=== PATIENT | female | born 1935 | race Caucasian/White ===

== ENCOUNTER → 2016-10-07 | Outpatient (CLI) | payer MEDICARE ==
[2016-10-07 16:51] LABS: ALANINE AMINOTRANSFERASE 35 U/L (9-52); ALBUMIN 4.4 g/dL (3.5-5.0); ALKALINE PHOSPHATASE 41 U/L (38-126); ANION GAP 10 (5-19); ASPARTATE AMINO TRANSFERASE 37 U/L (14-36); BILIRUBIN,TOTAL 0.7 mg/dL (0.2-1.3); BLOOD UREA NITROGEN 52 mg/dL (7-20); CALCIUM 9.7 mg/dL (8.4-10.2); CARBON DIOXIDE 33 mmol/L (22-30); CHLORIDE 96 mmol/L (98-107); CREATININE RESULT 1.37 mg/dL (0.52-1.25); GLUCOSE 105 mg/dL (75-110); PHOSPHORUS 4.6 mg/dL (2.5-4.5); SODIUM 139.2 mmol/L (137-145); TOTAL PROTEIN 6.9 g/dL (6.3-8.2)
[2016-10-07 16:53] LABS: URINE BARBITURATES SCREEN NEGATIVE; URINE METHADONE SCREEN NEGATIVE; URINE PHENCYCLIDINE SCREEN NEGATIVE
[2016-10-07 17:04] LABS: URINE OPIATES LOW UNCONFIRMED POSITIVE
== END ==
LOC: OD 15:25
PROVIDERS: ATTEND Physician Assistant
DX: G89.4 Chronic pain syndrome (principal)
CPT/HCPCS: 36415; 80069; 80076; 80307

== ENCOUNTER 2016-10-17 12:55 | Emergency (ER) | payer MEDICARE ==
--- NOTE | 2016-10-17 13:13 | ER Document Report ---
ED Medical Screen (RME) - General Stated Complaint: SHAKING,CONFUSED Mode of Arrival: Wheelchair Information source: Patient, Parent Notes: Pt presents to the ED for c/o shaking, feeling bad, weak, possible due to hype potassium since yesterday.. Reports history of hypercalcemia. Patient does take diuretic. Reports vomiting yesterday, wretching last night. Decreased appetite. Denies cp. Denies diarrhea fever, reports has felt clammy. I have greeted and performed a rapid initial assessment of this patient. A comprehensive ED assessment and evaluation of the patient, analysis of test results and completion of the medical decision making process will be conducted by additional ED providers. TRAVEL OUTSIDE OF THE [place] IN LAST 30 DAYS: No - Related Data Allergies/Adverse Reactions: codeine [Codeine] Allergy (Severe, Verified 05/03/16 04:04) Depression Past Medical History - Past Medical History Cardiac Medical History: Reports: Hx Hypercholesterolemia, Hx Hypertension Denies: Hx Congestive Heart Failure, Hx Coronary Artery Disease, Hx DVT, Hx Heart Attack, Hx Pulmonary Embolism Pulmonary Medical History: Denies: Hx Asthma, Hx Bronchitis - X 1 , Hx COPD, Hx Pneumonia Neurological Medical History: Denies: Hx Cerebrovascular Accident, Hx Seizures Endocrine Medical History: Reports: Hx Hypothyroidism. Denies: Hx Diabetes Mellitus Type 1, Hx Diabetes Mellitus Type 2 Musculoskeltal Medical History: Reports Hx Arthritis - GENERALIZED Psychiatric Medical History: Denies: Hx Depression Past Surgical History: Reports: Hx Hysterectomy - Immunizations Hx Diphtheria, Pertussis, Tetanus Vaccination: No - UNSURE Physical Exam - Vital signs Vitals: Temp Pulse Resp BP Pulse Ox 97.8 F 74 14 150/49 H 98 10/17/16 13:06 10/17/16 13:06 10/17/16 13:06 10/17/16 13:06 10/17/16 13:06 Course - Vital Signs Vital signs: Temp Pulse Resp BP Pulse Ox 97.8 F 74 14 150/49 H 98 10/17/16 13:06 10/17/16 13:06 10/17/16 13:06 10/17/16 13:06 10/17/16 13:06
[2016-10-17 13:42] LABS: ABSOLUTE LYMPHOCYTES (AUTO) 0.8 10^3/uL (0.5-4.7); ABSOLUTE MONOCYTES (AUTO) 0.5 10^3/uL (0.1-1.4); ABSOLUTE NEUT (AUTO) 3.5 10^3/uL (1.7-8.2); BASOPHILS % (AUTO) 0.4 % (0-2); EOSINOPHILS % (AUTO) 0.6 % (0-6); HEMATOCRIT 31.5 % (36.0-47.0); HEMOGLOBIN 10.7 g/dL (12.0-15.5); HGB HCT DIFFERENCE 0.6; MEAN CORPUSCULAR HEMOGLOBIN 30.6 pg (27.0-33.4); MEAN CORPUSCULAR HGB CONC 33.9 g/dL (32.0-36.0); MEAN CORPUSCULAR VOLUME 90 fl (80-97); MONOCYTES % (AUTO) 10.4 % (3-13); RED CELL DISTRIBUTION WIDTH 13.8 % (11.5-14.0); SEGMENTED NEUTROPHILS % (AUTO) 71.6 % (42-78); WHITE BLOOD COUNT 4.9 10^3/uL (4.0-10.5)
[2016-10-17 13:55] LABS: ALANINE AMINOTRANSFERASE 51 U/L (9-52); ALBUMIN 4.8 g/dL (3.5-5.0); ALKALINE PHOSPHATASE 43 U/L (38-126); ANION GAP 12 (5-19); ASPARTATE AMINO TRANSFERASE 62 U/L (14-36); BILIRUBIN,TOTAL 0.7 mg/dL (0.2-1.3); BLOOD UREA NITROGEN 62 mg/dL (7-20); CALCIUM 10.1 mg/dL (8.4-10.2); CARBON DIOXIDE 31 mmol/L (22-30); CHLORIDE 91 mmol/L (98-107); CREATINE KINASE 577 U/L (30-135); GLUCOSE 136 mg/dL (75-110); SODIUM 133.8 mmol/L (137-145); TOTAL PROTEIN 7.3 g/dL (6.3-8.2)
[2016-10-17 14:07] LABS: CREATINE KINASE MB 9.02 ng/mL (<4.55); TROPONIN I 0.017 ng/mL
[2016-10-17] MEDS ORDERED: NORMAL SALINE 1000 ML 1,000 ML IV ONE (14:10)
--- NOTE | 2016-10-17 14:25 | ER Document Report ---
ED General - General Chief Complaint: General Weakness Stated Complaint: SHAKING,CONFUSED Mode of Arrival: Wheelchair Information source: Patient Notes: 81-year-old female presents with complaints of generalized shakiness not feeling well. Patient denies any fevers or chills nausea vomiting or diarrhea except for one episode yesterday Patient recently had lab work last week for pain management TRAVEL OUTSIDE OF THE [place] IN LAST 30 DAYS: No - HPI Onset: Yesterday Onset/Duration: Persistent Quality of pain: No pain Severity: Mild Pain Level: Denies Associated symptoms: Other - Shakiness Exacerbated by: Denies Relieved by: Denies Similar symptoms previously: Yes Recently seen / treated by doctor: Yes - Related Data Allergies/Adverse Reactions: codeine [Codeine] Allergy (Severe, Verified 05/03/16 04:04) Depression Past Medical History - General Information source: Patient, Parent - Social History Smoking Status: Never Smoker Cigarette use (# per day): No Chew tobacco use (# tins/day): No Smoking Education Provided: No Frequency of alcohol use: None Drug Abuse: None Family History: Reviewed & Not Pertinent Patient has suicidal ideation: No Patient has homicidal ideation: No - Past Medical History Cardiac Medical History: Reports: Hx Hypercholesterolemia, Hx Hypertension Denies: Hx Congestive Heart Failure, Hx Coronary Artery Disease, Hx DVT, Hx Heart Attack, Hx Pulmonary Embolism Pulmonary Medical History: Denies: Hx Asthma, Hx Bronchitis - X 1 , Hx COPD, Hx Pneumonia Neurological Medical History: Denies: Hx Cerebrovascular Accident, Hx Seizures Endocrine Medical History: Reports: Hx Hypothyroidism. Denies: Hx Diabetes Mellitus Type 1, Hx Diabetes Mellitus Type 2 Renal/ Medical History: Denies: Hx Peritoneal Dialysis Musculoskeltal Medical History: Reports Hx Arthritis - GENERALIZED Psychiatric Medical History: Denies: Hx Depression Past Surgical History: Reports: Hx Cholecystectomy, Hx Hysterectomy, Hx Tonsillectomy - Immunizations Hx Diphtheria, Pertussis, Tetanus Vaccination: No - UNSURE Hx Pneumococcal Vaccination: 08/23/11 Review of Systems - Review of Systems Notes: REVIEW OF SYSTEMS: CONSTITUTIONAL : Denies fever, chills, or sweats. Denies recent illness. EENT: Denies eye, ear, throat, or mouth pain or symptoms. Denies nasal or sinus congestion or discharge. Denies throat, tongue, or mouth swelling or difficulty swallowing. CARDIOVASCULAR: Denies chest pain. Denies palpitations or racing or irregular heart beat. Denies ankle edema. RESPIRATORY: Denies cough, cold, or chest congestion. Denies shortness of breath, difficulty breathing, or wheezing. GASTROINTESTINAL: Denies abdominal pain or distention. Denies nausea, vomiting , or diarrhea. Denies blood in vomitus, stools, or per rectum. Denies black, tarry stools. Denies constipation. GENITOURINARY: Denies difficulty urinating, painful urination, burning, frequency, blood in urine, or discharge. FEMALE GENITOURINARY: Denies vaginal bleeding, heavy or abnormal periods, irregular periods. Denies vaginal discharge or odor. MUSCULOSKELETAL: Denies back or neck pain or stiffness. Denies joint pain or swelling. SKIN: Denies rash, lesions or sores. HEMATOLOGIC : Denies easy bruising or bleeding. LYMPHATIC: Denies swollen, enlarged glands. NEUROLOGICAL: Admits to shakiness PSYCHIATRIC: Denies anxiety or stress. Denies depression, suicidal ideation, or homicidal ideation. ALL OTHER SYSTEMS REVIEWED AND NEGATIVE. Dictation was performed using [employer] voice recognition software PHYSICAL EXAMINATION: GENERAL: Well-appearing, well-nourished and in no acute distress. HEAD: Atraumatic, normocephalic. EYES: Pupils equal round and reactive to light, extraocular movements intact, conjunctiva are normal. ENT: Nares patent, oropharynx clear without exudates. Moist mucous membranes. NECK: Normal range of motion, supple without lymphadenopathy LUNGS: Breath sounds clear to auscultation bilaterally and equal. No wheezes rales or rhonchi. HEART: Regular rate and rhythm without murmurs ABDOMEN: Soft abdomen with large ventral hernia non-tender Female : deferred Musculoskeletal: Normal range of motion, no pitting or edema. No cyanosis. NEUROLOGICAL: Cranial nerves grossly intact. Normal speech, normal gait. Normal sensory, motor exams PSYCH: Normal mood, normal affect. SKIN: Warm, Dry, normal turgor, no rashes or lesions noted. Physical Exam - Vital signs Vitals: Temp Pulse Resp BP Pulse Ox 97.8 F 74 14 150/49 H 98 10/17/16 13:06 10/17/16 13:06 10/17/16 13:06 10/17/16 13:06 10/17/16 13:06 Course - Re-evaluation Re-evalutation: 10/17/16 14:24 Patient is noted to have acute renal insufficiency, urinalysis is pending fluids will be given to the patient and I have offered her admission at this time 10/17/16 18:28 Patient is quite insistent on being discharged, given that we check a CMP does note improvement of the creatinine, I will continue hydration and discharge the patient home to follow-up with primary care physician both she and daughter are in agreement with this plan After performing a Medical Screening Examination, I estimate there is LOW risk for ACUTE CORONARY SYNDROME, RESPIRATORY FAILURE, SEPSIS OR MENINGITIS, thus I consider the discharge disposition reasonable. The patient and I have discussed the diagnosis and risks, and we agree with discharging home with close follow- up. We also discussed returning to the Emergency Department immediately if new or worsening symptoms occur. We have discussed the symptoms which are most concerning (e.g., changing or worsening pain, trouble swallowing or breathing, neck stiffness, fever) that necessitate immediate return. - Vital Signs Vital signs: Temp Pulse Resp BP Pulse Ox 97.8 F 74 14 150/49 H 98 10/17/16 13:06 10/17/16 13:06 10/17/16 13:06 10/17/16 13:06 10/17/16 13:06 - Laboratory Result Diagrams: 10/17/16 13:25 10/17/16 17:25 Laboratory results interpreted by me: 10/17/16 10/17/16 10/17/16 13:25 13:25 13:25 RBC 3.50 L Hgb 10.7 L Hct 31.5 L Sodium 133.8 L Chloride 91 L Carbon Dioxide 31 H BUN 62 H Creatinine 2.30 H Est GFR ( Amer) 25 L Est GFR (Non-Af Amer) 20 L Glucose 136 H AST 62 H Alkaline Phosphatase Creatine Kinase 577 H CK-MB (CK-2) 9.02 H 10/17/16 17:25 RBC Hgb Hct Sodium 134.5 L Chloride 96 L Carbon Dioxide BUN 55 H Creatinine 1.87 H Est GFR ( Amer) 31 L Est GFR (Non-Af Amer) 26 L Glucose AST 64 H Alkaline Phosphatase 36 L Creatine Kinase CK-MB (CK-2) - Diagnostic Test Radiology reviewed: Image reviewed, Reports reviewed - Patient has no abdominal pain, there is no signs of inflammation on examination Discharge - Discharge Clinical Impression: Dehydration Acute renal failure Qualifiers: Acute renal failure type: unspecified Qualified Code(s): N17.9 - Acute kidney failure, unspecified Hypertension Qualifiers: Hypertension type: essential hypertension Qualified Code(s): I10 - Essential ( primary) hypertension Condition: Stable Disposition: HOME, SELF-CARE Additional Instructions: Return immediately if there is any other concerns You must be seen by her primary care physician tomorrow for reevaluation of your creatinine function Referrals: JAG SOTO MD [Primary Care Provider] - Follow up tomorrow
[2016-10-17 14:38] LABS: APPEARANCE,URINE CLEAR; BILIRUBIN,URINE NEGATIVE (NEGATIVE); GLUCOSE, URINE NEGATIVE (NEGATIVE); KETONES,URINE NEGATIVE (NEGATIVE); LEUKOCYTE ESTERASE,URINE NEGATIVE (NEGATIVE); NITRITE,URINE NEGATIVE (NEGATIVE); PROTEIN,URINE NEGATIVE (NEGATIVE); URINE SPECIFIC GRAVITY 1.006; UROBILINOGEN,URINE NEGATIVE mg/dL (<2.0)
[2016-10-17 18:03] LABS: ALANINE AMINOTRANSFERASE 49 U/L (9-52); ALBUMIN 4.1 g/dL (3.5-5.0); ALKALINE PHOSPHATASE 36 U/L (38-126); ANION GAP 14 (5-19); ASPARTATE AMINO TRANSFERASE 64 U/L (14-36); BILIRUBIN,TOTAL 0.6 mg/dL (0.2-1.3); BLOOD UREA NITROGEN 55 mg/dL (7-20); CALCIUM 9.2 mg/dL (8.4-10.2); CARBON DIOXIDE 25 mmol/L (22-30); CHLORIDE 96 mmol/L (98-107); CREATININE RESULT 1.87 mg/dL (0.52-1.25); GLUCOSE 107 mg/dL (75-110); POTASSIUM 4.6 mmol/L (3.6-5.0); SODIUM 134.5 mmol/L (137-145); TOTAL PROTEIN 6.6 g/dL (6.3-8.2)
[2016-10-17] MEDS: NORMAL SALINE 1000 ML 1,000 ML IV PRN ×2 (18:21→19:40)
--- NOTE | 2016-10-17 19:29 | EKG REPORT ---
SEVERITY:- BORDERLINE ECG - SINUS RHYTHM PROBABLE LEFT ATRIAL ABNORMALITY BORDERLINE T ABNORMALITIES, ANT-LAT LEADS : Confirmed by: Yamilet Napier MD 17-Oct-2016 19:28:19
[2016-10-17 20:45] VITALS: BP 164/58
== END 2016-10-17 20:44 | disposition home or self-care (01) ==
LOC: ER 12:55
DX: N17.9 Acute kidney failure, unspecified (principal); E86.0 Dehydration; I10 Essential (primary) hypertension; R53.1 Weakness; R25.1 Tremor, unspecified; R41.0 Disorientation, unspecified
CPT/HCPCS: 93005; 99285; 96360; 96361; 36415; 82553; 82550; 85025; 80053; 81001; 84484; 74176; 93010; J7030

== ENCOUNTER → 2016-10-23 | Outpatient (CLI) | payer MEDICARE ==
[2016-10-23 14:17] LABS: BLOOD UREA NITROGEN 33 mg/dL (7-20); CREATININE RESULT 1.25 mg/dL (0.52-1.25)
== END ==
LOC: OD 13:00
PROVIDERS: ATTEND Internal Medicine
DX: N18.3 Chronic kidney disease, stage 3 (moderate) (principal)
CPT/HCPCS: 36415; 82565; 84520

== ENCOUNTER → 2016-11-25 | Outpatient (CLI) | payer MEDICARE ==
[2016-11-25 08:41] LABS: ABSOLUTE LYMPHOCYTES (AUTO) 1.2 10^3/uL (0.5-4.7); ABSOLUTE MONOCYTES (AUTO) 0.7 10^3/uL (0.1-1.4); ABSOLUTE NEUT (AUTO) 2.5 10^3/uL (1.7-8.2); BASOPHILS % (AUTO) 0.8 % (0-2); EOSINOPHILS % (AUTO) 1.1 % (0-6); HEMATOCRIT 29.9 % (36.0-47.0); HEMOGLOBIN 10.1 g/dL (12.0-15.5); HGB HCT DIFFERENCE 0.4; LYMPHOCYTES % (AUTO) 27.2 % (13-45); MEAN CORPUSCULAR HEMOGLOBIN 30.1 pg (27.0-33.4); MEAN CORPUSCULAR HGB CONC 33.7 g/dL (32.0-36.0); MEAN CORPUSCULAR VOLUME 89 fl (80-97); MONOCYTES % (AUTO) 15.1 % (3-13); RED BLOOD COUNT 3.36 10^6/uL (3.72-5.28); RED CELL DISTRIBUTION WIDTH 14.2 % (11.5-14.0); SEGMENTED NEUTROPHILS % (AUTO) 55.8 % (42-78); WHITE BLOOD COUNT 4.5 10^3/uL (4.0-10.5)
[2016-11-25 09:00] LABS: ALANINE AMINOTRANSFERASE 45 U/L (9-52); ALBUMIN 3.8 g/dL (3.5-5.0); ALKALINE PHOSPHATASE 36 U/L (38-126); ANION GAP 10 (5-19); ASPARTATE AMINO TRANSFERASE 47 U/L (14-36); BILIRUBIN,DIRECT 0.4 mg/dL (0.0-0.4); BILIRUBIN,TOTAL 0.7 mg/dL (0.2-1.3); BLOOD UREA NITROGEN 56 mg/dL (7-20); CALCIUM 9.5 mg/dL (8.4-10.2); CARBON DIOXIDE 31 mmol/L (22-30); CHLORIDE 92 mmol/L (98-107); CHOLESTEROL 104.88 mg/dL (0-200); CREATININE RESULT 1.71 mg/dL (0.52-1.25); Direct HDL 57 mg/dL (>40); GLUCOSE 97 mg/dL (75-110); MAGNESIUM 2.3 mg/dL (1.6-2.3); POTASSIUM 4.4 mmol/L (3.6-5.0); SODIUM 133.4 mmol/L (137-145); TOTAL PROTEIN 6.4 g/dL (6.3-8.2); TRIGLYCERIDES 58 mg/dL (<150)
[2016-11-25 09:12] LABS: DIRECT LDL 35 mg/dL (<100)
== END ==
LOC: LAB 08:23
PROVIDERS: ATTEND Family Medicine Geriatric Medicine
DX: I10 Essential (primary) hypertension (principal); E78.5 Hyperlipidemia, unspecified; E03.9 Hypothyroidism, unspecified; Z79.899 Other long term (current) drug therapy; E55.9 Vitamin D deficiency, unspecified
CPT/HCPCS: 36415; 80053; 80061; 82306; 83735; 84443; 85025

== ENCOUNTER → 2016-11-30 | Outpatient (CLI) | payer MEDICARE ==
[2016-11-30 16:04] LABS: ABSOLUTE EOSINOPHILS # (AUTO) 0.1 10^3/uL (0.0-0.6); ABSOLUTE MONOCYTES (AUTO) 0.4 10^3/uL (0.1-1.4); BASOPHILS % (AUTO) 0.6 % (0-2); EOSINOPHILS % (AUTO) 1.2 % (0-6); HEMATOCRIT 31.5 % (36.0-47.0); HGB HCT DIFFERENCE 1.5; LYMPHOCYTES % (AUTO) 22.5 % (13-45); MEAN CORPUSCULAR HEMOGLOBIN 31.1 pg (27.0-33.4); MEAN CORPUSCULAR HGB CONC 34.9 g/dL (32.0-36.0); MEAN CORPUSCULAR VOLUME 89 fl (80-97); MONOCYTES % (AUTO) 9.7 % (3-13); RED BLOOD COUNT 3.54 10^6/uL (3.72-5.28); RED CELL DISTRIBUTION WIDTH 13.8 % (11.5-14.0); WHITE BLOOD COUNT 4.5 10^3/uL (4.0-10.5)
[2016-11-30 16:42] LABS: ERYTHROCYTE SEDIMENTATION RATE 12 mm/hr (0-30)
[2016-12-03 07:34] LABS: DEAMIDATED GLIADIN IGA AB 1 units (0-19); DEAMIDATED GLIADIN IGG AB 2 units (0-19); IMMUNOGLOBULIN A 2 75 mg/dL (64-422); T-TRANSGLUTAMINASE (TTG) IGG <2 U/mL (0-5)
== END ==
LOC: OD 11:38
PROVIDERS: ATTEND Specialist
DX: Z79.899 Other long term (current) drug therapy (principal)
CPT/HCPCS: 36415; 83520; 83735; 85025; 85652; 86038; 86256

== ENCOUNTER → 2016-12-23 | Outpatient (CLI) | payer MEDICARE ==
[2016-12-23 12:59] LABS: ALANINE AMINOTRANSFERASE 63 U/L (9-52); ALBUMIN 3.9 g/dL (3.5-5.0); ALKALINE PHOSPHATASE 66 U/L (38-126); ANION GAP 12 (5-19); ASPARTATE AMINO TRANSFERASE 49 U/L (14-36); BILIRUBIN,DIRECT 0.2 mg/dL (0.0-0.4); BILIRUBIN,TOTAL 0.9 mg/dL (0.2-1.3); BLOOD UREA NITROGEN 18 mg/dL (7-20); CALCIUM 9.6 mg/dL (8.4-10.2); CARBON DIOXIDE 30 mmol/L (22-30); CHLORIDE 95 mmol/L (98-107); CREATININE RESULT 0.76 mg/dL (0.52-1.25); GLUCOSE 91 mg/dL (75-110); POTASSIUM 3.9 mmol/L (3.6-5.0); TOTAL PROTEIN 6.5 g/dL (6.3-8.2)
[2016-12-23 13:02] LABS: APPEARANCE,URINE SLIGHTLY-CLOUDY; BILIRUBIN,URINE NEGATIVE (NEGATIVE); GLUCOSE, URINE NEGATIVE (NEGATIVE); KETONES,URINE NEGATIVE (NEGATIVE); LEUKOCYTE ESTERASE,URINE MODERATE (NEGATIVE); NITRITE,URINE NEGATIVE (NEGATIVE); PROTEIN,URINE NEGATIVE (NEGATIVE); URINE SPECIFIC GRAVITY 1.009; UROBILINOGEN,URINE NEGATIVE mg/dL (<2.0)
[2016-12-24 10:41] LABS: APPEARANCE,URINE SLIGHTLY-CLOUDY; BILIRUBIN,URINE NEGATIVE (NEGATIVE); GLUCOSE, URINE NEGATIVE (NEGATIVE); KETONES,URINE NEGATIVE (NEGATIVE); LEUKOCYTE ESTERASE,URINE MODERATE (NEGATIVE); NITRITE,URINE NEGATIVE (NEGATIVE); PROTEIN,URINE NEGATIVE (NEGATIVE); URINE SPECIFIC GRAVITY 1.008; UROBILINOGEN,URINE NEGATIVE mg/dL (<2.0)
== END ==
LOC: OD 11:23
PROVIDERS: ATTEND Family Medicine Geriatric Medicine
DX: I10 Essential (primary) hypertension (principal); D64.9 Anemia, unspecified; R06.02 Shortness of breath; N39.0 Urinary tract infection, site not specified
CPT/HCPCS: 36415; 80053; 81001; 82728; 83540; 83550; 84466; 85045; 87086; 87088; 87186

== ENCOUNTER → 2017-01-06 | Outpatient (CLI) | payer MEDICARE ==
--- NOTE | 2017-01-08 17:28 | XCELERA REPORT ---
[address] [address] Transthoracic Echocardiogram Report Name: GUNNER PYLE Age: 81 yrs Gender: Female : 1935 Patient Status: Outpatient Patient Location: Study Date: 01/06/2017 11:12 AM Height: 55 in Weight: 135 lb BSA: 1.5 m2 Procedure: A complete two-dimensional transthoracic echocardiogram was performed (2D, M-mode, spectral and color flow Doppler). The study was technically difficult with many images being suboptimal in quality. Reason For Study: SOB, HTN Ordering Physician: RENZO TENA Performed By: Chan Shafer Interpretation Summary The left ventricular ejection fraction is normal. Doppler measurements suggest impaired left ventricular relaxation, which is associated with grade I/IV or mild diastolic dysfunction There is borderline concentric left ventricular hypertrophy. The left ventricle is grossly normal size. Wall motion cannot be accurately commented on, but no definite regional wall motion abnormalities noted. Borderline right ventricular enlargement. The right ventricular systolic function is normal. The right atrium is mildly dilated. The left atrium is moderately dilated. There is no mitral valve stenosis. There is a mild to moderate amount of mitral regurgitation There is a mild amount of aortic regurgitation There is no aortic valve stenosis There is a mild amount of tricuspid regurgitation There is mild to moderate pulmonary hypertension by echo Right ventricular systolic pressure is estimated to be elevated at 40- 50mmHg. The aortic root is not well visualized but is probably normal size. The inferior vena cava appeared normal and decreased < 50% with respiration (RAP 10-15 mmHg) There is no pericardial effusion. MMode/2D Measurements \T\ Calculations RVDd: 2.2 cm LVIDd: 5.4 cm FS: 36.6 % Ao root diam: 2.5 cm IVSd: 0.98 cm LVIDs: 3.4 cm EDV(Teich): 140.2 ml LVPWd: 0.95 cm ESV(Teich): 47.9 ml Ao root area: 4.9 cm2 EF(Teich): 65.9 % LA dimension: 4.6 cm Doppler Measurements \T\ Calculations MV E max ruddy: MV P1/2t max ruddy: Ao V2 max: AI max ruddy: 93.8 cm/sec 91.6 cm/sec 149.3 cm/sec 371.6 cm/sec MV A max ruddy: MV P1/2t: 56.0 msec Ao max PG: AI max P.4 cm/sec 8.9 mmHg 55.2 mmHg MV E/A: 0.79 MVA(P1/2t): 3.9 cm2 AI dec slope: MV dec slope: 478.8 cm/sec2 183.1 cm/sec2 AI P1/2t: 594.4 msec LV V1 max PG: PA V2 max: TR max ruddy: RAP systole: 3.9 mmHg 81.2 cm/sec 283.7 cm/sec 10.0 mmHg LV V1 max: PA max P.6 mmHg TR max P.2 cm/sec 32.5 mmHg RVSP(TR): 42.5 mmHg Left Ventricle The left ventricle is grossly normal size. There is borderline concentric left ventricular hypertrophy. The left ventricular ejection fraction is normal. Doppler measurements suggest impaired left ventricular relaxation, which is associated with grade I/IV or mild diastolic dysfunction. Wall motion cannot be accurately commented on, but no definite regional wall motion abnormalities noted. Right Ventricle Borderline right ventricular enlargement. There is normal right ventricular wall thickness. The right ventricular systolic function is normal. Atria The right atrium is mildly dilated. The left atrium is moderately dilated. There is no Doppler evidence for an interatrial shunt. Mitral Valve The mitral valve leaflets are sclerotic, but show no functional abnormalities. There is no mitral valve stenosis. There is a mild to moderate amount of mitral regurgitation. Aortic Valve The aortic valve is mildly calcified. There is no aortic valve stenosis. There is a mild amount of aortic regurgitation. Tricuspid Valve The tricuspid valve is not well visualized, but is grossly normal. There is no tricuspid stenosis. There is a mild amount of tricuspid regurgitation. There is mild to moderate pulmonary hypertension by echo. Right ventricular systolic pressure is estimated to be elevated at 40-50mmHg. Pulmonic Valve The pulmonic valve is not well visualized. Great Vessels The aortic root is not well visualized but is probably normal size. The inferior vena cava appeared normal and decreased < 50% with respiration (RAP 10-15 mmHg). Effusions There is no pericardial effusion. : RENZO TENA > Marcy White
== END ==
LOC: SP 10:46
PROVIDERS: ATTEND Family Medicine Geriatric Medicine
DX: R06.02 Shortness of breath (principal); I10 Essential (primary) hypertension; R60.0 Localized edema
CPT/HCPCS: 93306

== ENCOUNTER → 2017-02-19 | Outpatient (CLI) | payer MEDICARE ==
[2017-02-19 17:15] LABS: HEMATOCRIT 36.7 % (36.0-47.0); HEMOGLOBIN 11.8 g/dL (12.0-15.5); HGB HCT DIFFERENCE -1.3; MEAN CORPUSCULAR HEMOGLOBIN 29.9 pg (27.0-33.4); MEAN CORPUSCULAR HGB CONC 32.3 g/dL (32.0-36.0); MEAN CORPUSCULAR VOLUME 93 fl (80-97); RED BLOOD COUNT 3.96 10^6/uL (3.72-5.28); RED CELL DISTRIBUTION WIDTH 13.4 % (11.5-14.0); WHITE BLOOD COUNT 6.9 10^3/uL (4.0-10.5)
[2017-02-19 17:23] LABS: APPEARANCE,URINE SLIGHTLY-CLOUDY; BILIRUBIN,URINE NEGATIVE (NEGATIVE); GLUCOSE, URINE NEGATIVE (NEGATIVE); KETONES,URINE NEGATIVE (NEGATIVE); LEUKOCYTE ESTERASE,URINE MODERATE (NEGATIVE); NITRITE,URINE POSITIVE (NEGATIVE); PROTEIN,URINE NEGATIVE (NEGATIVE); URINE SPECIFIC GRAVITY 1.006; UROBILINOGEN,URINE NEGATIVE mg/dL (<2.0)
[2017-02-19 17:33] LABS: ALANINE AMINOTRANSFERASE 27 U/L (9-52); ASPARTATE AMINO TRANSFERASE 27 U/L (14-36)
[2017-02-19 17:34] LABS: ANION GAP 12 (5-19); BLOOD UREA NITROGEN 26 mg/dL (7-20); CALCIUM 9.5 mg/dL (8.4-10.2); CARBON DIOXIDE 32 mmol/L (22-30); CHLORIDE 96 mmol/L (98-107); GLUCOSE 126 mg/dL (75-110); MAGNESIUM 2.2 mg/dL (1.6-2.3); POTASSIUM 4.4 mmol/L (3.6-5.0); SODIUM 139.6 mmol/L (137-145)
== END ==
LOC: OD 15:42
PROVIDERS: ATTEND Internal Medicine Nephrology
DX: I12.9 Hypertensive chronic kidney disease with stage 1 through stage 4 chronic kidney disease, or unspecified chronic kidney disease (principal); N18.4 Chronic kidney disease, stage 4 (severe); I50.9 Heart failure, unspecified; R79.89 Other specified abnormal findings of blood chemistry; Z79.899 Other long term (current) drug therapy
CPT/HCPCS: 36415; 80048; 81001; 83735; 84450; 84460; 85027

== ENCOUNTER → 2017-02-26 | Outpatient (CLI) | payer MEDICARE ==
--- NOTE | 2017-02-28 17:08 | XCELERA REPORT ---
[address] [address] Lower Extremity Arterial Evaluation Name: GUNNER PYLE Age: 81 yrs Gender: Female : 1935 Patient Status: Outpatient Patient Location: Study Date: 02/26/2017 01:04 PM Procedure: A color flow and duplex scan of the lower extremity arteries was performed bilaterally with velocity and waveform anaylsis. Ankle brachial indicies performed. Reason For Study: PAD, ULCER Ordering Physician: NATALY PRAKASH Performed By: Val Hoffmann Measurements and Calculations Right Left JUNK REMOVAL SPECIALIST PSV 176.6 cm/sec Prox PFA PSV 104.8 154.3 cm/sec Prox SFA PSV 128.8 152.3 cm/sec Mid SFA PSV 144.3 119.8 cm/sec Dist SFA PSV 125.4 125.0 cm/sec Prox Pop A PSV 106.5 104.7 cm/sec Dist WILFREDO PSV 129.3 123.4 cm/sec Dist SAS STATISTICAL PROGRAMMER PSV 74.5 129.7 cm/sec Alfonso Pedis PSV 113.8 110.9 cm/sec Right Side Arterial Evaluation Normal velocity, spectral broadening and biphasic waveforms noted from the Common Femoral artery to the infrageniculate vessels. 0-19 % stenosis at the inflow vessels. Ankle Brachial index is 1.1. Left Side Arterial Evaluation Normal velocity, spectral broadening and biphasic waveforms noted from the Common Femoral artery to the infrageniculate vessels. 0-19 % stenosis at the inflow vessels. Ankle Brachial index is 1.1. Interpretation Summary Mild hemodynamically significant lesions in the bilateral lower extremities, on duplex imaging, at rest. : NATALY PRAKASH > James Hannah
== END ==
LOC: SP 12:59
PROVIDERS: ATTEND Podiatrist Foot Surgery
DX: I70.25 Atherosclerosis of native arteries of other extremities with ulceration (principal)
CPT/HCPCS: 93925

== ENCOUNTER → 2017-03-26 | Outpatient (CLI) | payer MEDICARE ==
[2017-03-26 16:56] LABS: HEMATOCRIT 34.4 % (36.0-47.0); HEMOGLOBIN 11.7 g/dL (12.0-15.5); HGB HCT DIFFERENCE 0.7; MEAN CORPUSCULAR HEMOGLOBIN 31.1 pg (27.0-33.4); MEAN CORPUSCULAR VOLUME 92 fl (80-97); RED BLOOD COUNT 3.76 10^6/uL (3.72-5.28); RED CELL DISTRIBUTION WIDTH 12.9 % (11.5-14.0); WHITE BLOOD COUNT 5.6 10^3/uL (4.0-10.5)
[2017-03-26 17:18] LABS: ANION GAP 10 (5-19); BLOOD UREA NITROGEN 27 mg/dL (7-20); CALCIUM 9.4 mg/dL (8.4-10.2); CARBON DIOXIDE 30 mmol/L (22-30); CHLORIDE 98 mmol/L (98-107); CREATININE RESULT 0.97 mg/dL (0.52-1.25); GLUCOSE 96 mg/dL (75-110); MAGNESIUM 1.9 mg/dL (1.6-2.3); POTASSIUM 4.3 mmol/L (3.6-5.0); SODIUM 137.9 mmol/L (137-145)
== END ==
LOC: OD 15:38
PROVIDERS: ATTEND Internal Medicine Nephrology
DX: I12.9 Hypertensive chronic kidney disease with stage 1 through stage 4 chronic kidney disease, or unspecified chronic kidney disease (principal); N18.4 Chronic kidney disease, stage 4 (severe); D64.9 Anemia, unspecified; R80.0 Isolated proteinuria
CPT/HCPCS: 36415; 80048; 83735; 85027

== ENCOUNTER → 2017-06-03 | Outpatient (CLI) | payer MEDICARE ==
[2017-06-03 14:54] LABS: APPEARANCE,URINE SLIGHTLY-CLOUDY; BILIRUBIN,URINE NEGATIVE (NEGATIVE); GLUCOSE, URINE NEGATIVE (NEGATIVE); KETONES,URINE NEGATIVE (NEGATIVE); LEUKOCYTE ESTERASE,URINE TRACE (NEGATIVE); NITRITE,URINE NEGATIVE (NEGATIVE); PROTEIN,URINE NEGATIVE (NEGATIVE); URINE SPECIFIC GRAVITY 1.006; UROBILINOGEN,URINE NEGATIVE mg/dL (<2.0)
[2017-06-03 14:59] LABS: HEMOGLOBIN 11.5 g/dL (12.0-15.5); HGB HCT DIFFERENCE 0.5; MEAN CORPUSCULAR HEMOGLOBIN 30.5 pg (27.0-33.4); MEAN CORPUSCULAR HGB CONC 33.8 g/dL (32.0-36.0); MEAN CORPUSCULAR VOLUME 90 fl (80-97); RED BLOOD COUNT 3.77 10^6/uL (3.72-5.28); RED CELL DISTRIBUTION WIDTH 14.6 % (11.5-14.0); WHITE BLOOD COUNT 6.8 10^3/uL (4.0-10.5)
[2017-06-03 15:07] LABS: ANION GAP 10 (5-19); BLOOD UREA NITROGEN 23 mg/dL (7-20); CARBON DIOXIDE 28 mmol/L (22-30); CHLORIDE 101 mmol/L (98-107); CREATININE RESULT 0.81 mg/dL (0.52-1.25); GLUCOSE 86 mg/dL (75-110); POTASSIUM 4.5 mmol/L (3.6-5.0); SODIUM 139.3 mmol/L (137-145)
== END ==
LOC: OD 13:58
PROVIDERS: ATTEND Physician Assistant Medical
DX: I12.9 Hypertensive chronic kidney disease with stage 1 through stage 4 chronic kidney disease, or unspecified chronic kidney disease (principal); N18.3 Chronic kidney disease, stage 3 (moderate); D64.9 Anemia, unspecified; I50.9 Heart failure, unspecified
CPT/HCPCS: 36415; 80048; 81001; 85027

== ENCOUNTER → 2017-07-29 | Outpatient (CLI) | payer MEDICARE ==
--- NOTE | 2017-07-29 15:31 | RADIOLOGY REPORT (SQ) ---
EXAM DESCRIPTION: CT ABD/PELVIS WITH IV ORAL COMPLETED DATE/TIME: 07/29/2017 3:06 pm REASON FOR STUDY: K43.9 VENTRAL HERNIA WITHOUT OBSTRUCTION OR GANGRENE R10.12 LEFT UPPER QUAD K43.9 VENTRAL HERNIA WITHOUT OBSTRUCTION OR GANGRENE R10.12 LEFT UPPER QUADRANT PAIN COMPARISON: 10/17/2016. TECHNIQUE: CT scan of the abdomen and pelvis performed with intravenous and oral contrast using sarah mike scanning technique with dynamic intravenous contrast injection. Images reviewed with lung, soft t issue, and bone windows. Reconstructed coronal and sagittal MPR images reviewed. Delayed images for e valuation of the urinary system also acquired. All images stored on PACS. All CT scanners at this facility use dose modulation, iterative reconstruction, and/or weight based d osing when appropriate to reduce radiation dose to as low as reasonably achievable (ALARA). [facility]: Dose Right [facility]: CareDose [facility]: Dose Right [facility]: Teradose 4D [facility]: DataContact CONTRAST TYPE AND DOSE: contrast/concentration: Isovue 370.00 mg/ml; Total Contrast Delivered: 66.0 ml; Total Saline Delivered: 65.0 ml RENAL FUNCTION: Creatinine 1.0. RADIATION DOSE: CT Rad equipment meets quality standard of care and radiation dose reduction techniq ues were employed. CTDIvol: 6.2 - 7.3 mGy. DLP: 520 mGy-cm. . LIMITATIONS: None. FINDINGS: LOWER CHEST: No significant findings. No nodules or infiltrates. LIVER: Normal size. No masses. No dilated ducts. SPLEEN: Normal size. No focal lesions. PANCREAS: No masses. No significant calcifications. No adjacent inflammation or peripancreatic fluid collections. Pancreatic duct not dilated. GALLBLADDER: Surgically absent. ADRENAL GLANDS: No significant masses or asymmetry. RIGHT KIDNEY AND URETER: No solid masses. No significant calcifications. No hydronephrosis or hyd roureter. LEFT KIDNEY AND URETER: No solid masses. No significant calcifications. No hydronephrosis or hydr oureter. AORTA AND VESSELS: No aneurysm. No dissection. Renal arteries, SMA, celiac without stenosis. RETROPERITONEUM: No retroperitoneal adenopathy, hemorrhage or masses. BOWEL AND PERITONEAL CAVITY: No obstruction. No visualized masses. No free fluid. No inflammatory ch anges or thickening of bowel wall. APPENDIX: Normal. PELVIS: No significant masses. Normal bladder. No free fluid. ABDOMINAL WALL: Abdominal wall hernia which now contains the midportion of the transverse colon. Sma ll amount fluid in the deep inner portion of the hernia. BONES: Severe degenerative changes in the spine with severe scoliosis. No other significant or acute findings. OTHER: No other significant finding. IMPRESSION: 1. ABDOMINAL WALL HERNIA NOW CONTAINING THE MID PORTION OF THE TRANSVERSE COLON. NO OBSTRUCTION AT T HIS TIME. 2. NO OTHER SIGNIFICANT OR ACUTE FINDINGS IN THE ABDOMEN OR PELVIS. SEVERE DEGENERATIVE CHANGES IN T HE SPINE WITH SEVERE SCOLIOSIS. TECHNICAL DOCUMENTATION: JOB ID: [id number] Quality ID # [id number]: Final reports with documentation of one or more dose reduction techniques (e.g., Au tomated exposure control, adjustment of the mA and/or kV according to patient size, use of iterative reconstruction technique) 2010 [employer]- All Rights Reserved
== END ==
LOC: RAD 13:59
PROVIDERS: ATTEND Internal Medicine Gastroenterology
DX: K43.9 Ventral hernia without obstruction or gangrene (principal); R10.12 Left upper quadrant pain
CPT/HCPCS: 74177; 82565

== ENCOUNTER → 2017-08-27 | Outpatient (CLI) | payer MEDICARE ==
[2017-08-31 10:03] LABS: ABSOLUTE EOSINOPHILS # (AUTO) 0.1 10^3/uL (0.0-0.6); ABSOLUTE LYMPHOCYTES (AUTO) 1.1 10^3/uL (0.5-4.7); ABSOLUTE MONOCYTES (AUTO) 0.6 10^3/uL (0.1-1.4); ABSOLUTE NEUT (AUTO) 3.3 10^3/uL (1.7-8.2); BASOPHILS % (AUTO) 0.9 % (0-2); EOSINOPHILS % (AUTO) 2.2 % (0-6); HEMATOCRIT 37.3 % (36.0-47.0); HEMOGLOBIN 12.6 g/dL (12.0-15.5); LYMPHOCYTES % (AUTO) 21.8 % (13-45); MEAN CORPUSCULAR HEMOGLOBIN 31.1 pg (27.0-33.4); MEAN CORPUSCULAR HGB CONC 33.8 g/dL (32.0-36.0); MEAN CORPUSCULAR VOLUME 92 fl (80-97); MONOCYTES % (AUTO) 11.3 % (3-13); PLATELET COUNT 213 10^3/uL (150-450); RED BLOOD COUNT 4.06 10^6/uL (3.72-5.28); RED CELL DISTRIBUTION WIDTH 13.2 % (11.5-14.0); SEGMENTED NEUTROPHILS % (AUTO) 63.8 % (42-78); TOTAL CELLS COUNTED % (AUTO) 100 %; WHITE BLOOD COUNT 5.2 10^3/uL (4.0-10.5)
[2017-08-31 10:08] LABS: HEMATOCRIT 37.3 % (36.0-47.0); HEMOGLOBIN 12.6 g/dL (12.0-15.5); MEAN CORPUSCULAR HEMOGLOBIN 31.1 pg (27.0-33.4); MEAN CORPUSCULAR HGB CONC 33.8 g/dL (32.0-36.0); MEAN CORPUSCULAR VOLUME 92 fl (80-97); PLATELET COUNT 213 10^3/uL (150-450); RED BLOOD COUNT 4.06 10^6/uL (3.72-5.28); RED CELL DISTRIBUTION WIDTH 13.2 % (11.5-14.0); WHITE BLOOD COUNT 5.2 10^3/uL (4.0-10.5)
[2017-08-31 10:10] LABS: APPEARANCE,URINE CLOUDY; BILIRUBIN,URINE NEGATIVE (NEGATIVE); COLOR,URINE YELLOW; GLUCOSE, URINE NEGATIVE (NEGATIVE); KETONES,URINE NEGATIVE (NEGATIVE); LEUKOCYTE ESTERASE,URINE MODERATE (NEGATIVE); NITRITE,URINE NEGATIVE (NEGATIVE); PROTEIN,URINE NEGATIVE (NEGATIVE); URINE SPECIFIC GRAVITY 1.013; UROBILINOGEN,URINE NEGATIVE mg/dL (<2.0)
[2017-08-31 10:25] LABS: URINE AMPHETAMINES SCREEN NEGATIVE; URINE BARBITURATES SCREEN NEGATIVE; URINE BENZODIAZEPINES SCREEN NEGATIVE; URINE COCAINE SCREEN NEGATIVE; URINE MARIJUANA (THC) SCREEN NEGATIVE; URINE METHADONE SCREEN NEGATIVE; URINE PHENCYCLIDINE SCREEN NEGATIVE
[2017-08-31 10:40] LABS: ANION GAP 12 (5-19); BLOOD UREA NITROGEN 21 mg/dL (7-20); CALCIUM 10.6 mg/dL (8.4-10.2); CARBON DIOXIDE 32 mmol/L (22-30); CHLORIDE 97 mmol/L (98-107); GLUCOSE 102 mg/dL (75-110); POTASSIUM 4.1 mmol/L (3.6-5.0); SODIUM 140.5 mmol/L (137-145)
[2017-08-31 11:13] LABS: ALANINE AMINOTRANSFERASE 33 U/L (9-52); ALBUMIN 4.4 g/dL (3.5-5.0); ALKALINE PHOSPHATASE 78 U/L (38-126); ANION GAP 12 (5-19); ASPARTATE AMINO TRANSFERASE 30 U/L (14-36); BILIRUBIN,DIRECT 0.3 mg/dL (0.0-0.4); BILIRUBIN,TOTAL 0.9 mg/dL (0.2-1.3); BLOOD UREA NITROGEN 21 mg/dL (7-20); CALCIUM 10.6 mg/dL (8.4-10.2); CARBON DIOXIDE 32 mmol/L (22-30); CHLORIDE 97 mmol/L (98-107); CHOLESTEROL 116.15 mg/dL (0-200); DIRECT LDL 36 mg/dL (<100); GLUCOSE 102 mg/dL (75-110); POTASSIUM 4.1 mmol/L (3.6-5.0); SODIUM 140.5 mmol/L (137-145); TOTAL PROTEIN 7.1 g/dL (6.3-8.2); TRIGLYCERIDES 92 mg/dL (<150)
== END ==
LOC: LAB 14:03
PROVIDERS: ATTEND Family Medicine Geriatric Medicine
DX: I12.9 Hypertensive chronic kidney disease with stage 1 through stage 4 chronic kidney disease, or unspecified chronic kidney disease (principal); N18.2 Chronic kidney disease, stage 2 (mild); Z53.8 Procedure and treatment not carried out for other reasons
CPT/HCPCS: 36415; 84443; 85025; 85027; 80048; 80053; 81001; 80307; 80061; G6056; 80361

== ENCOUNTER → 2017-09-07 | Outpatient (CLI) | payer MEDICARE ==
--- NOTE | 2017-09-07 15:20 | RADIOLOGY REPORT (SQ) ---
EXAM DESCRIPTION: RIBS BILATERAL W/PA CHEST COMPLETED DATE/TIME: 09/07/2017 12:23 pm REASON FOR STUDY: PLEURODYNIA R07.81 PLEURODYNIA COMPARISON: None. TECHNIQUE: Frontal view of the chest and additional views of the right and left ribs acquired. NUMBER OF VIEWS: 8 views LIMITATIONS: None. FINDINGS: FRONTAL CXR: No pneumothorax. No pleural effusion. No atelectasis or infiltrates. RIBS: No displaced rib fractures. No lytic or blastic bony lesions. OTHER: No other significant finding. IMPRESSION: NO PNEUMOTHORAX. NO DISPLACED RIB FRACTURES. COMMENT: SITE OF TRAUMA/COMPLAINT MARKED/STAMP COMPLETED: YES. TECHNICAL DOCUMENTATION: JOB ID: [id number] [employer]- All Rights Reserved
== END ==
LOC: OD 11:06
PROVIDERS: ATTEND Family Medicine Geriatric Medicine
DX: R07.81 Pleurodynia (principal)
CPT/HCPCS: 71111

== ENCOUNTER 2017-11-14 09:43 | Inpatient (IN) | payer MEDICARE ==
[2017-11-14] MEDS ORDERED: NORMAL SALINE 500 ML IV ONE (10:12)
--- NOTE | 2017-11-14 10:16 | ER Document Report ---
ED General - General Chief Complaint: Tremor Stated Complaint: SHAKEY/WEAKNESS Time Seen by Provider: 11/14/17 09:50 Mode of Arrival: Wheelchair Information source: Patient, Relative Notes: This is an 82-year-old female with a history of chronic kidney disease, hyperkalemia in the past, scoliosis and arthritis who is been treated for the past 4 days for UTI. Patient presents today with feeling shaky and a little confused. Patient is accompanied by her daughter. They deny fever or Rigor's. She denies abdominal pain. She denies any focal motor weakness. Past medical history: Bradycardia (stable), hypertension, chronic kidney disease , scoliosis Surgeries: Cholecystectomy, hysterectomy, carpal tunnel, bladder tuck Medications: Hydralazine 50 mg 3 times daily Losartan 50 mg in the a.m., 25 mg in the p.m. Lasix 40 mg daily Tizanidine 4 mg 4 times daily Prilosec, Atorvastatin 20 mg daily Levothyroxine 88 mcg daily Alendronate, Gabapentin 600 mg twice daily TRAVEL OUTSIDE OF THE [place] IN LAST 30 DAYS: No - HPI Onset: Last week Onset/Duration: Gradual Quality of pain: No pain Severity: None Pain Level: Denies Associated symptoms: denies: Chest pain, Fever, Shortness of breath Exacerbated by: Denies Relieved by: Denies Similar symptoms previously: Yes Recently seen / treated by doctor: Yes - Related Data Allergies/Adverse Reactions: codeine [Codeine] Allergy (Severe, Verified 05/03/16 04:04) Depression Past Medical History - General Information source: Patient - Social History Smoking Status: Never Smoker Cigarette use (# per day): No Chew tobacco use (# tins/day): No Frequency of alcohol use: None Drug Abuse: None Lives with: Family Family History: Reviewed & Not Pertinent Patient has suicidal ideation: No Patient has homicidal ideation: No - Past Medical History Cardiac Medical History: Reports: Hx Hypercholesterolemia, Hx Hypertension Denies: Hx Congestive Heart Failure, Hx Coronary Artery Disease, Hx DVT, Hx Heart Attack, Hx Pulmonary Embolism Pulmonary Medical History: Denies: Hx Asthma, Hx Bronchitis - X 1 , Hx COPD, Hx Pneumonia Neurological Medical History: Denies: Hx Cerebrovascular Accident, Hx Seizures Endocrine Medical History: Reports: Hx Hypothyroidism. Denies: Hx Diabetes Mellitus Type 1, Hx Diabetes Mellitus Type 2 Renal/ Medical History: Denies: Hx Peritoneal Dialysis Musculoskeltal Medical History: Reports Hx Arthritis - GENERALIZED Psychiatric Medical History: Denies: Hx Depression Past Surgical History: Reports: Hx Cholecystectomy, Hx Hysterectomy, Hx Tonsillectomy - Immunizations Hx Diphtheria, Pertussis, Tetanus Vaccination: No - UNSURE Hx Pneumococcal Vaccination: 08/23/11 Review of Systems - Review of Systems Constitutional: denies: Chills, Fever EENT: No symptoms reported Cardiovascular: See HPI Respiratory: No symptoms reported Gastrointestinal: No symptoms reported Genitourinary: No symptoms reported Female Genitourinary: No symptoms reported Musculoskeletal: No symptoms reported Skin: No symptoms reported Hematologic/Lymphatic: No symptoms reported Neurological/Psychological: See HPI Physical Exam - Vital signs Vitals: Temp Pulse Resp BP Pulse Ox 98.5 F 55 L 20 127/87 H 94 11/14/17 09:50 11/14/17 09:50 11/14/17 09:50 11/14/17 09:50 11/14/17 09:50 Notes: Physical exam: GENERAL: 82-year-old female, pleasant, alert and oriented 3, smiling and very conversant, no acute distress HEAD: Atraumatic, normocephalic. EYES: Pupils equal round and reactive to light, extraocular movements intact, sclera anicteric, conjunctiva are normal. ENT: TMs normal, nares patent, oropharynx clear without exudates. Moist mucous membranes. NECK: Normal range of motion, supple without obvious mass or JVD. LUNGS: Breath sounds clear to auscultation bilaterally and equal. No wheezes rales or rhonchi. HEART: Bradycardia without murmurs, rubs or gallops. ABDOMEN: Soft, normoactive bowel sounds. No tenderness to palpation. She has a large ventral hernia which is nontender. EXTREMITIES: Normal range of motion, no pitting or edema. No clubbing or cyanosis. NEUROLOGICAL: Cranial nerves II through XII grossly intact. Normal speech, moving all extremities. PSYCH: Normal mood, normal affect. SKIN: Warm, Dry, normal turgor, no rashes or lesions noted. Course - Vital Signs Vital signs: Temp Pulse Resp BP Pulse Ox 98.5 F 55 L 15 147/51 H 96 11/14/17 09:50 11/14/17 09:50 11/14/17 14:00 11/14/17 12:31 11/14/17 14:00 - Laboratory Result Diagrams: 11/14/17 11:45 11/14/17 10:55 Laboratory results interpreted by me: 11/14/17 11/14/17 11/14/17 10:55 11:45 11:47 RBC 3.71 L Hgb 11.5 L Hct 34.5 L Monocytes % 13.1 H Sodium 131.9 L Potassium 5.5 H Chloride 97 L BUN 42 H Creatinine 1.93 H Est GFR ( Amer) 30 L Est GFR (Non-Af Amer) 25 L Phosphorus 5.4 H Magnesium 2.4 H Direct Bilirubin 0.5 H Urine Ascorbic Acid 40 H - Diagnostic Test Radiology reviewed: Image reviewed, Reports reviewed - Stat x-ray shows some atelectasis, no obvious infiltrates - EKG Interpretation by Me Rate: Bradycardia - EKG shows sinus bradycardia with a ventricular rate of 48, patient does have known history of bradycardia Discharge - Discharge Clinical Impression: Dehydration, Acute kidney injury, Hyperkalemia Condition: Stable Disposition: ADMITTED OBSERVATION Admitting Provider: Hospitalist - Dr. Salter Unit Admitted: Telemetry
[2017-11-14 11:35] LABS: ALANINE AMINOTRANSFERASE 30 U/L (9-52); ALKALINE PHOSPHATASE 54 U/L (38-126); ANION GAP 8 (5-19); ASPARTATE AMINO TRANSFERASE 32 U/L (14-36); BILIRUBIN,DIRECT 0.5 mg/dL (0.0-0.4); BILIRUBIN,TOTAL 0.5 mg/dL (0.2-1.3); BLOOD UREA NITROGEN 42 mg/dL (7-20); CALCIUM 9.9 mg/dL (8.4-10.2); CARBON DIOXIDE 27 mmol/L (22-30); CHLORIDE 97 mmol/L (98-107); GLUCOSE 84 mg/dL (75-110); PHOSPHORUS 5.4 mg/dL (2.5-4.5); POTASSIUM 5.5 mmol/L (3.6-5.0); SODIUM 131.9 mmol/L (137-145); TOTAL PROTEIN 6.6 g/dL (6.3-8.2)
[2017-11-14 12:09] LABS: ABSOLUTE EOSINOPHILS # (AUTO) 0.1 10^3/uL (0.0-0.6); ABSOLUTE NEUT (AUTO) 4.2 10^3/uL (1.7-8.2); BASOPHILS % (AUTO) 0.5 % (0-2); EOSINOPHILS % (AUTO) 1.2 % (0-6); HEMATOCRIT 34.5 % (36.0-47.0); HEMOGLOBIN 11.5 g/dL (12.0-15.5); LYMPHOCYTES % (AUTO) 27.6 % (13-45); MEAN CORPUSCULAR HEMOGLOBIN 30.9 pg (27.0-33.4); MEAN CORPUSCULAR HGB CONC 33.2 g/dL (32.0-36.0); MEAN CORPUSCULAR VOLUME 93 fl (80-97); MONOCYTES % (AUTO) 13.1 % (3-13); PLATELET COUNT 220 10^3/uL (150-450); RED BLOOD COUNT 3.71 10^6/uL (3.72-5.28); RED CELL DISTRIBUTION WIDTH 13.4 % (11.5-14.0); SEGMENTED NEUTROPHILS % (AUTO) 57.6 % (42-78); TOTAL CELLS COUNTED % (AUTO) 100 %; WHITE BLOOD COUNT 7.3 10^3/uL (4.0-10.5)
[2017-11-14 12:22] LABS: APPEARANCE,URINE TURBID; BILIRUBIN,URINE NEGATIVE (NEGATIVE); CALCIUM OXALATE CRYSTALS,URINE RARE /HPF; COLOR,URINE YELLOW; GLUCOSE, URINE NEGATIVE (NEGATIVE); KETONES,URINE NEGATIVE (NEGATIVE); LEUKOCYTE ESTERASE,URINE NEGATIVE (NEGATIVE); NITRITE,URINE NEGATIVE (NEGATIVE); PROTEIN,URINE NEGATIVE (NEGATIVE); URIC ACID CRYSTALS,URINE MANY /HPF; URINE SPECIFIC GRAVITY 1.009; UROBILINOGEN,URINE NEGATIVE mg/dL (<2.0)
--- NOTE | 2017-11-14 13:17 | RADIOLOGY REPORT (SQ) ---
EXAM DESCRIPTION: CHEST SINGLE VIEW COMPLETED DATE/TIME: 11/14/2017 1:02 pm REASON FOR STUDY: shakiness COMPARISON: 05/06/2016 EXAM PARAMETERS: NUMBER OF VIEWS: One view. TECHNIQUE: Single frontal radiographic view of the chest acquired. RADIATION DOSE: NA LIMITATIONS: None. FINDINGS: LUNGS AND PLEURA: Linear atelectasis at the left base. Right lung is clear. MEDIASTINUM AND HILAR STRUCTURES: No masses. Contour normal. HEART AND VASCULAR STRUCTURES: Heart normal in size. Normal vasculature. BONES: No acute findings. HARDWARE: None in the chest. OTHER: No other significant finding. IMPRESSION: Linear left basilar atelectasis. TECHNICAL DOCUMENTATION: JOB ID: [id number] [employer]- All Rights Reserved Reading location - IP/workstation name: [email or web address]
--- NOTE | 2017-11-14 13:20 | RADIOLOGY REPORT (SQ) ---
EXAM DESCRIPTION: CT HEAD WITHOUT COMPLETED DATE/TIME: 11/14/2017 1:06 pm REASON FOR STUDY: encephalopathy COMPARISON: 2016 TECHNIQUE: Axial images acquired through the brain without intravenous contrast. Images reviewed wi th bone, brain and subdural windows. Images stored on PACS. All CT scanners at this facility use dose modulation, iterative reconstruction, and/or weight based d osing when appropriate to reduce radiation dose to as low as reasonably achievable (ALARA). [facility]: Dose Right [facility]: CareDose [facility]: Dose Right [facility]: Teradose 4D [facility]: [employer] RADIATION DOSE: CT Rad equipment meets quality standard of care and radiation dose reduction techniq ues were employed. CTDIvol: 64.6 mGy. DLP: 1034 mGy-cm. mGy. LIMITATIONS: None. FINDINGS: VENTRICLES: Prominent. CEREBRUM: No masses. No hemorrhage. No midline shift. Areas of low density in the white matter mos t likely due to chronic micro-vascular ischemic change. No evidence for acute infarction. CEREBELLUM: No masses. No hemorrhage. No alteration of density. No evidence for acute infarction. EXTRAAXIAL SPACES: Mild age-related involutional change. No fluid collections. No masses. ORBITS AND GLOBE: No intra- or extraconal masses. Normal contour of globe without masses. CALVARIUM: No fracture. PARANASAL SINUSES: No fluid or mucosal thickening. SOFT TISSUES: No mass or hematoma. OTHER: No other significant finding. IMPRESSION: MILD CHRONIC CHANGES OF ATROPHY AND MICROVASCULAR ISCHEMIA. NO ACUTE PROCESS. EVIDENCE OF ACUTE STROKE: NO. TECHNICAL DOCUMENTATION: JOB ID: [id number] Quality ID # [id number]: Final reports with documentation of one or more dose reduction techniques (e.g., Au tomated exposure control, adjustment of the mA and/or kV according to patient size, use of iterative reconstruction technique) 2010 [employer]- All Rights Reserved Reading location - IP/workstation name: [email or web address]
[2017-11-14] MEDS: NORMAL SALINE 1000 ML 1,000 ML IV PRN ×2 (13:46→23:42)
[2017-11-14] MEDS ORDERED: ACETAMINOPHEN 325 MG TABLET PO PRN (14:01)
[2017-11-14] MEDS ORDERED: ONDANSETRON 4 MG TAB.RAPDIS PO PRN (14:01)
[2017-11-14 14:44] LABS: CREATINE KINASE MB 2.67 ng/mL (<4.55)
[2017-11-14 14:45] LABS: TROPONIN I < 0.012 ng/mL
[2017-11-14] MEDS ORDERED: CEFTRIAXONE 1 GM/D5W RTU 1 GM/50 ML RTUPB IV SCH (15:00)
--- NOTE | 2017-11-14 15:22 | PDOC H&P ---
History of Present Illness Admission Date/PCP: 11/14/17 13:31 RENZO TENA MD Patient complains of: shaking, weakness, and a little confusion History of Present Illness: GUNNER PYLE is a 82 year old female with multiple medical problems presented to the ED with complaints of "shaking", "weak", and "a little confusion". It began yesterday or maybe a little the day before. She feels better now that she has received some IVFs. She doesn't know of any precipitating or exacerbating factors. She was recently started on Bactrim for a UTI. She has 5 tabs left in the bottle. Her daughters are present, and stated that she is improved. Past Medical History Cardiac Medical History: Reports: Hyperlipidema, Hypertension Denies: Congestive Heart Failure, Coronary Artery Disease, DVT, Myocardial Infarction, Pulmonary Embolism Pulmonary Medical History: Denies: Asthma, Bronchitis - X 1 , Chronic Obstructive Pulmonary Disease ( COPD), Pneumonia Neurological Medical History: Denies: Seizures Endocrine Medical History: Reports: Hypothyroidism Denies: Diabetes Mellitus Type 1, Diabetes Mellitus Type 2 Musculoskeltal Medical History: Reports: Arthritis - GENERALIZED Psychiatric Medical History: Denies: Depression Hematology: Denies: Anemia Past Surgical History Past Surgical History: Reports: Cholecystectomy, Hysterectomy, Tonsillectomy Social History Information Source: Patient Lives with: Family Smoking Status: Never Smoker Frequency of Alcohol Use: None Hx Recreational Drug Use: No Drugs: None Hx Prescription Drug Abuse: No - Advance Directive Resuscitation Status: Full Code Family History Family History: Reviewed & Not Pertinent Parental Family History Reviewed: No Children Family History Reviewed: No Sibling(s) Family History Reviewed.: No Medication/Allergy Home Medications: Alendronate Sodium [Fosamax 70 mg Tablet] 70 mg PO JIMENEZ 11/14/17 Aspirin [Adult Low Dose Aspirin EC] 81 mg PO DAILY 11/14/17 Atorvastatin Calcium [Lipitor 20 mg Tablet] 20 mg PO DAILY 11/14/17 Furosemide [Lasix 40 mg Tablet] 20 mg PO DAILY@1300 11/14/17 Furosemide [Lasix 40 mg Tablet] 40 mg PO QAM 11/14/17 Gabapentin [Neurontin 300 mg Capsule] 600 mg PO Q12 11/14/17 Hydralazine HCl [Apresoline 50 mg Tablet] 50 mg PO TID 11/14/17 Hydromorphone HCl [Dilaudid 2 mg Tablet] 2 mg PO QIDP PRN 11/14/17 Levothyroxine Sodium [Synthroid] 88 mcg PO Q6AM 11/14/17 Losartan Potassium [Cozaar 25 mg Tablet] 25 mg PO QPM 11/14/17 Losartan Potassium [Cozaar 25 mg Tablet] 50 mg PO QAM 11/14/17 Magnesium Chloride [Mag64] 128 mg PO BID 11/14/17 Morphine Sulfate [Morphine Sulfate ER] 15 mg PO BID 11/14/17 Omeprazole 40 mg PO BID 11/14/17 Potassium Chloride [Klor-Con M10] 10 meq PO BID 11/14/17 Tizanidine HCl [Zanaflex 4 mg Tablet] 4 mg PO QID 11/14/17 Allergies/Adverse Reactions: codeine [Codeine] Allergy (Severe, Verified 05/03/16 04:04) Depression Review of Systems Constitutional: PRESENT: weakness Nose, Mouth, and Throat: ABSENT: headache(s) Cardiovascular: ABSENT: chest pain, dyspnea on exertion, edema, orthropnea Respiratory: ABSENT: cough, hemoptysis Gastrointestinal: ABSENT: abdominal pain, constipation, diarrhea, hematemesis, hematochezia, nausea, vomiting Genitourinary: ABSENT: dysuria, hematuria Neurological: ABSENT: abnormal gait, abnormal speech, confusion, dizziness, focal weakness, syncope Psychiatric: ABSENT: anxiety, depression, homidical ideation, suicidal ideation Physical Exam Vital Signs: Temp Pulse Resp BP Pulse Ox 98.5 F 55 L 16 147/51 H 93 11/14/17 09:50 11/14/17 09:50 11/14/17 13:07 11/14/17 12:31 11/14/17 12:30 General appearance: PRESENT: no acute distress, well-developed, well-nourished Head exam: PRESENT: atraumatic, normocephalic Eye exam: PRESENT: EOMI, PERRLA Neck exam: ABSENT: carotid bruit, JVD, lymphadenopathy, thyromegaly Respiratory exam: PRESENT: clear to auscultation adan. ABSENT: rales, rhonchi, wheezes Cardiovascular exam: PRESENT: RRR. ABSENT: diastolic murmur, rubs, systolic murmur GI/Abdominal exam: PRESENT: normal bowel sounds, soft. ABSENT: distended, guarding, mass, organolmegaly, rebound, tenderness Extremities exam: PRESENT: full ROM. ABSENT: calf tenderness, clubbing, pedal edema Musculoskeletal exam: PRESENT: ambulatory Neurological exam: PRESENT: alert, awake, oriented to person, oriented to place , oriented to time, oriented to situation, CN II-XII grossly intact. ABSENT: motor sensory deficit Psychiatric exam: PRESENT: appropriate affect, normal mood. ABSENT: homicidal ideation, suicidal ideation Skin exam: PRESENT: dry, intact, warm. ABSENT: cyanosis, rash Results Impressions: Chest X-Ray 11/14/17 11:53 IMPRESSION: Linear left basilar atelectasis. Head CT 11/14/17 12:28 IMPRESSION: MILD CHRONIC CHANGES OF ATROPHY AND MICROVASCULAR ISCHEMIA. NO ACUTE PROCESS. EVIDENCE OF ACUTE STROKE: NO. Assessment & Plan - Diagnosis (1) Acute renal failure Qualifiers: Acute renal failure type: unspecified Qualified Code(s): N17.9 - Acute kidney failure, unspecified Is this a current diagnosis for this admission?: Yes Plan: d/t volume depletion in the context of ARB and Sulfa use. Stop TMP/SMX. Hold losartan and KCL. Continue IVFs. recheck BMP in AM. The UTI she was treated for 11/10/17 was due to citrobacter and klebsiella. Both are sensitive to ceftriaxone. I will give her a dose of ceftriaxone today and tomorrow. Then she will be finished with antibiotics. (2) Hyperkalemia Is this a current diagnosis for this admission?: Yes Plan: Likely from a combination of renal failure, potassium supplementation, losartan , and sulfa drug. For now, we will hold her supplemental potassium. ECG is normal. Recheck in a.m. (3) Hypothyroid Qualifiers: Hypothyroidism type: acquired Qualified Code(s): E03.9 - Hypothyroidism, unspecified Is this a current diagnosis for this admission?: Yes Plan: Currently she is asymptomatic. Continue levothyroxine. (4) HTN (hypertension) Qualifiers: Hypertension type: essential hypertension Qualified Code(s): I10 - Essential (primary) hypertension Is this a current diagnosis for this admission?: Yes Plan: BP okay. Resume losartan once renal function has improved. - Time Time Spent: 50 to 70 Minutes Medications reviewed and adjusted accordingly: Yes Anticipated discharge: Home Within: within 24 hours - Inpatient Certification Based on my medical assessment, after consideration of the patient's comorbidities, presenting symptoms, or acuity I expect that the services needed warrant INPATIENT care.: Yes I certify that my determination is in accordance with my understanding of Medicare's requirements for reasonable and necessary INPATIENT services [42 CFR 412.3e].: Yes Medical Necessity: Need For IV Fluids
--- NOTE | 2017-11-14 16:19 | EKG REPORT ---
SEVERITY:- OTHERWISE NORMAL ECG - SINUS BRADYCARDIA : Confirmed by: Marcy White 14-Nov-2017 16:18:25
[2017-11-14] MEDS: MORPHINE SULFATE SR 15 MG TABLET PO SCH (17:33)
[2017-11-14] MEDS: TIZANIDINE HCL 4 MG TABLET PO SCH ×2 (17:35→22:05)
[2017-11-14] MEDS: HYDRALAZINE HCL 50 MG TABLET PO SCH (17:35)
[2017-11-14] MEDS: CEFTRIAXONE SODIUM 1,000 MG in NORMAL SALINE 100 ML IV SCH (17:36)
[2017-11-14] MEDS: GABAPENTIN 300 MG CAPSULE PO SCH (22:05)
[2017-11-14] MEDS: ATORVASTATIN CALCIUM 20 MG TABLET PO SCH (22:05)
[2017-11-14] MEDS: HEPARIN SOD (PORCINE) 5,000 UNIT/ML 1 ML SYRINGE SUBCUT SCH (22:06)
[2017-11-15 00:55] LABS: BLOOD UREA NITROGEN 38 mg/dL (7-20); CARBON DIOXIDE 26 mmol/L (22-30); CHLORIDE 102 mmol/L (98-107); GLUCOSE 95 mg/dL (75-110); SODIUM 131.7 mmol/L (137-145)
[2017-11-15 01:41] LABS: ANION GAP 4 (5-19)
[2017-11-15 05:43] LABS: ALANINE AMINOTRANSFERASE 36 U/L (9-52); ALBUMIN 3.3 g/dL (3.5-5.0); ALKALINE PHOSPHATASE 45 U/L (38-126); ANION GAP 5 (5-19); ASPARTATE AMINO TRANSFERASE 36 U/L (14-36); BILIRUBIN,DIRECT 0.4 mg/dL (0.0-0.4); BILIRUBIN,TOTAL 0.4 mg/dL (0.2-1.3); BLOOD UREA NITROGEN 36 mg/dL (7-20); CALCIUM 9.1 mg/dL (8.4-10.2); CARBON DIOXIDE 25 mmol/L (22-30); CHLORIDE 104 mmol/L (98-107); GLUCOSE 84 mg/dL (75-110); PHOSPHORUS 4.4 mg/dL (2.5-4.5); POTASSIUM 5.3 mmol/L (3.6-5.0); SODIUM 133.6 mmol/L (137-145); TOTAL PROTEIN 5.7 g/dL (6.3-8.2)
[2017-11-15] MEDS: HEPARIN SOD (PORCINE) 5,000 UNIT/ML 1 ML SYRINGE SUBCUT SCH ×3 (06:00→22:28)
[2017-11-15] MEDS: MORPHINE SULFATE SR 15 MG TABLET PO SCH ×2 (06:00→17:06)
[2017-11-15] MEDS: LEVOTHYROXINE SODIUM 0.088 MG TABLET PO SCH (06:00)
[2017-11-15] MEDS: HYDRALAZINE HCL 50 MG TABLET PO SCH ×3 (09:51→19:52)
[2017-11-15] MEDS: ASPIRIN 81 MG TABLET, ENT COATED PO SCH (09:51)
[2017-11-15] MEDS: GABAPENTIN 300 MG CAPSULE PO SCH ×2 (09:52→22:29)
[2017-11-15] MEDS: TIZANIDINE HCL 4 MG TABLET PO SCH ×4 (09:52→22:29)
--- NOTE | 2017-11-15 12:53 | PDOC PROGRESS REPORT ---
Subjective Progress Note for:: 11/15/17 Subjective:: GUNNER PYLE is a 82 year old female with multiple medical problems presented to the ED with complaints of "shaking", "weak", and "a little confusion". It began yesterday or maybe a little the day before. She feels better now that she has received some IVFs. She doesn't know of any precipitating or exacerbating factors. She was recently started on Bactrim for a UTI. She has 5 tabs left in the bottle. Her daughters are present, and stated that she is improved. Reason For Visit: ACUTE KIDNEY INJURY Physical Exam Vital Signs: Temp Pulse Resp BP Pulse Ox 98.3 F 58 L 17 125/47 L 96 11/15/17 11:00 11/15/17 11:00 11/15/17 11:00 11/15/17 11:00 11/15/17 11:00 Intake & Output 11/14/17 11/15/17 11/16/17 06:59 06:59 06:59 Intake Total 600 Output Total 500 Balance 100 Weight 60.4 kg General appearance: PRESENT: no acute distress Head exam: PRESENT: atraumatic Eye exam: PRESENT: conjunctiva pink, EOMI, PERRLA. ABSENT: scleral icterus Mouth exam: PRESENT: moist, tongue midline Neck exam: ABSENT: carotid bruit, JVD, lymphadenopathy, thyromegaly Respiratory exam: PRESENT: clear to auscultation adan. ABSENT: rales, rhonchi, wheezes Cardiovascular exam: PRESENT: RRR. ABSENT: diastolic murmur, rubs, systolic murmur GI/Abdominal exam: PRESENT: normal bowel sounds, soft. ABSENT: distended, guarding, mass, organolmegaly, rebound, tenderness Rectal exam: PRESENT: deferred Extremities exam: PRESENT: full ROM. ABSENT: calf tenderness, clubbing, pedal edema Musculoskeletal exam: PRESENT: ambulatory Neurological exam: PRESENT: alert, awake, oriented to person, oriented to time, oriented to situation Psychiatric exam: PRESENT: appropriate affect, normal mood. ABSENT: homicidal ideation, suicidal ideation Results Laboratory Results: 11/15/17 04:07 11/15/17 11/15/17 11/15/17 00:30 00:30 04:07 Sodium 131.7 L 133.6 L Potassium 5.0 5.3 H Chloride 102 104 Carbon Dioxide 26 25 Anion Gap 4 L 5 BUN 38 H 36 H Creatinine 1.55 H 1.41 H Est GFR ( Amer) 39 L 43 L Est GFR (Non-Af Amer) 32 L 36 L Glucose 95 84 Calcium 9.0 9.1 Phosphorus 4.4 Magnesium 2.2 2.2 Total Bilirubin 0.4 AST 36 ALT 36 Alkaline Phosphatase 45 Total Protein 5.7 L Albumin 3.3 L TSH 0.47 Impressions: Chest X-Ray 11/14/17 11:53 IMPRESSION: Linear left basilar atelectasis. Head CT 11/14/17 12:28 IMPRESSION: MILD CHRONIC CHANGES OF ATROPHY AND MICROVASCULAR ISCHEMIA. NO ACUTE PROCESS. EVIDENCE OF ACUTE STROKE: NO. Assessment & Plan - Time Time Spent with patient: 15-24 minutes Medications reviewed and adjusted accordingly: Yes Anticipated discharge: Home Within: within 48 hours - Inpatient Certification Based on my medical assessment, after consideration of the patient's comorbidities, presenting symptoms, or acuity I expect that the services needed warrant INPATIENT care.: Yes Medical Necessity: Need For IV Fluids - Plan Summary Plan Summary: 1.AURELIA due to dehydration as well as likely sulfa. Since then is currently on hold as well as Bactrim. Will continue IV fluid. And follow kidney function. Creatinine is improving down to 1.4 from 1.93 2.Urinary tract infection secondary to Citrobacter and Klebsiella for which she was on Bactrim. She is on day 2 of ceftriaxone and this will complete 7 days antibiotic treatment. 3. Hypokalemia secondary to the kidney function as well as Bactrim. Potassium supplementation and losartan. 4. Hypertension BP currently better controlled. Will start antihypertensives as appropriate readmission is improving
[2017-11-15] MEDS ORDERED: NORMAL SALINE 1000 ML 1,000 ML IV PRN (16:11)
[2017-11-15] MEDS: CEFTRIAXONE SODIUM 1,000 MG in NORMAL SALINE 100 ML IV SCH (17:03)
[2017-11-15 20:14] LABS: FREE T3 3.38 pg/mL (2.77-5.27); FREE T4 (FREE THYROXINE) 1.32 ng/dL (0.78-2.19)
[2017-11-15] MEDS ORDERED: ATROPINE SULFATE INJ 1 MG/10 ML DISP.SYRIN IV ONE (21:23)
[2017-11-15] MEDS: ATORVASTATIN CALCIUM 20 MG TABLET PO SCH (22:29)
[2017-11-16] MEDS: HYDROMORPHONE HCL 2 MG TABLET PO PRN ×2 (01:32→09:08)
[2017-11-16] MEDS ORDERED: LOSARTAN POTASSIUM 50 MG TABLET PO ONE (04:15)
[2017-11-16] MEDS: MORPHINE SULFATE SR 15 MG TABLET PO SCH ×2 (06:53→18:50)
[2017-11-16] MEDS: LEVOTHYROXINE SODIUM 0.088 MG TABLET PO SCH (06:53)
[2017-11-16] MEDS: HEPARIN SOD (PORCINE) 5,000 UNIT/ML 1 ML SYRINGE SUBCUT SCH ×3 (06:53→21:14)
--- NOTE | 2017-11-16 07:36 | EKG REPORT ---
SEVERITY:- BORDERLINE ECG - SINUS RHYTHM BORDERLINE R WAVE PROGRESSION, ANTERIOR LEADS BORDERLINE T ABNORMALITIES, ANT-LAT LEADS : Confirmed by: Eric Barragan MD 16-Nov-2017 07:36:25
--- NOTE | 2017-11-16 08:25 | Physician Advisory Note ---
Physician Advisor ProgressNote .: Pursuant to the plan for [facility], I have reviewed the medical record for this patient. Physician Advisor Statement: Please consider documenting, if you agree: 1. Could AURELIA be "due to ATN, due to intravascular volume depletion & Bactrim"? 2. "Acute hyponatremia, likely due to " [intravascular volume depletion?] 3. Underlying reason(s) pt is on Lasix at home, & reason(s) for IVF rate being no faster than it is - is there "chronic diastolic CHF" & "concern for risk of precipitating Acute on chronic diastolic CHF", or ...? 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 Status: Appropriately brought in as Obs for AURELIA - but has continued to have Cr significantly above baseline of appx 0.8, despite tx in hospital w/meds changes & IVF. Still hyponatremic & recurrently hyperkalemic. F/u labs expected again soon based on eval so far. On day after arrival, attending concerned about bradycardia, leading to telemetry monitoring and consulting technology education instructor. Appropriate for change to Inpatient status if attending agrees. Thanks! CK
[2017-11-16] MEDS: GABAPENTIN 300 MG CAPSULE PO SCH ×2 (09:06→21:14)
[2017-11-16] MEDS: ASPIRIN 81 MG TABLET, ENT COATED PO SCH (09:07)
[2017-11-16] MEDS: TIZANIDINE HCL 4 MG TABLET PO SCH ×3 (09:10→18:51)
[2017-11-16] MEDS: HYDRALAZINE HCL 50 MG TABLET PO SCH ×3 (09:11→18:51)
[2017-11-16] MEDS ORDERED: FUROSEMIDE INJ/PF 40 MG/4 ML SDV IV ONE (09:18)
--- NOTE | 2017-11-16 09:37 | PDOC CONSULTATION ---
Consultation Consult Date: 11/15/17 Attending physician:: KIM OSBORNE Consult reason:: Bradycardia History of Present Illness Admission Date/PCP: 11/14/17 13:31 RENZO TENA MD Patient complains of: Generalized fatigue and tiredness History of Present Illness: GUNNER PYLE is a 82 year old female with multiple medical problems presented to the ED with complaints of "shaking", "weak", and "a little confusion". It began yesterday or maybe a little the day before. She feels better now that she has received some IVFs. She doesn't know of any precipitating or exacerbating factors. She was recently started on Bactrim for a UTI. She has 5 tabs left in the bottle. Her daughters are present, and stated that she is improved. This history obtained by the hospitalist as reviewed and confirmed. Subsequently however on monitoring patient was noted to have severe bradycardia with heart rate dropping in the 30s but mainly at night. Patient's daughter in the room. There is no prior history of syncope or near syncope. No prior history of bradycardia. Patient potassium was noted to be mildly elevated. I was asked to evaluate patient because of bradycardia. On questioning patient denied any chest pain. Patient claims she has been on some long-acting blood pressure medication, the name of which she could not remember but currently not getting it. 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 Psychiatric Medical History: Denies: Depression Hematology: Denies: Anemia Past Surgical History Past Surgical History: Reports: Cholecystectomy, Hysterectomy, Tonsillectomy Social History Information Source: Patient Lives with: Family Smoking Status: Never Smoker Frequency of Alcohol Use: None Hx Recreational Drug Use: No Drugs: None Hx Prescription Drug Abuse: No - Advance Directive Resuscitation Status: Full Code Family History Family History: Hypertension Parental Family History Reviewed: Yes Children Family History Reviewed: Yes Sibling(s) Family History Reviewed.: Yes Medication/Allergy Home Medications: Alendronate Sodium [Fosamax 70 mg Tablet] 70 mg PO JIMENEZ 11/14/17 Aspirin [Adult Low Dose Aspirin EC] 81 mg PO DAILY 11/14/17 Atorvastatin Calcium [Lipitor 20 mg Tablet] 20 mg PO DAILY 11/14/17 Furosemide [Lasix 40 mg Tablet] 20 mg PO DAILY@1300 11/14/17 Furosemide [Lasix 40 mg Tablet] 40 mg PO QAM 11/14/17 Gabapentin [Neurontin 300 mg Capsule] 600 mg PO Q12 11/14/17 Hydralazine HCl [Apresoline 50 mg Tablet] 50 mg PO TID 11/14/17 Hydromorphone HCl [Dilaudid 2 mg Tablet] 2 mg PO QIDP PRN 11/14/17 Levothyroxine Sodium [Synthroid] 88 mcg PO Q6AM 11/14/17 Losartan Potassium [Cozaar 25 mg Tablet] 25 mg PO QPM 11/14/17 Losartan Potassium [Cozaar 25 mg Tablet] 50 mg PO QAM 11/14/17 Magnesium Chloride [Mag64] 128 mg PO BID 11/14/17 Morphine Sulfate [Morphine Sulfate ER] 15 mg PO BID 11/14/17 Omeprazole 40 mg PO BID 11/14/17 Potassium Chloride [Klor-Con M10] 10 meq PO BID 11/14/17 Tizanidine HCl [Zanaflex 4 mg Tablet] 4 mg PO QID 11/14/17 Allergies/Adverse Reactions: codeine [Codeine] Allergy (Severe, Verified 05/03/16 04:04) Depression Review of Systems Review of Systems: Please see history of present illness and past medical history as wall. Constitutional: General fatigue, tiredness, confusion. Head : No recent chronic headaches, recent head injury. Eyes: No recent eye pain, diplopia, redness, discharge, acute visual changes. Ears: No recent chronic ear pain, acute hearing loss, ear discharge. Oral cavity: No recent ulcerations, bleeding, oral cavity discomfort. Neck: No recent acute neck pain reported. Hematologic: No recent easy bruising or bleeding or hematologic malignancy reported. Lymphatic: No recent lymphatic malignancy, chronic lymphadenopathy reported yet Cardiovascular system review: See history of present illness. Respiratory system review: No recent chronic cough, hemoptysis, blood clots in the lungs reported. Mild Shortness of breath on exertion Gastrointestinal system review: Negative for any recent acute or chronic abdominal pain, hematemesis, melena, recent change in bowel habits. Genitourinary system review: No recent acute or chronic hematuria, flank pain, UTI etc. reported. Skin system review: Negative for any recent abnormal bruising, no rash, no pruritus reported. Neurologic: No prior history of strokes, mini strokes, seizure disorder. Psychologic: No history of major psychosis or major depression reported. Musculoskeletal: Minor aches and pains reported. No acute joint swelling reported. Endocrine: No recent polyuria, polydipsia, recent heat or cold intolerance. Physical Exam Vital Signs: Temp Pulse Resp BP Pulse Ox 99.0 F 85 18 184/61 H 99 11/15/17 15:00 11/15/17 15:00 11/15/17 15:00 11/15/17 15:00 11/15/17 15:00 Intake & Output 11/14/17 11/15/17 11/16/17 06:59 06:59 06:59 Intake Total 600 840 Output Total 500 Balance 100 840 Weight 60.4 kg Exam: GENERAL: well-nourished and in no acute distress. Alert and oriented x3 HEAD: Atraumatic, normocephalic. EYES: Pupils equal round and reactive to light, extraocular movements intact, sclera anicteric, conjunctiva are normal. ENT: TMs normal, nares patent, oropharynx clear without exudates. Moist mucous membranes. No oral ulcerations or bleeding gums noted NECK: supple without lymphadenopathy. Trachea is central. No cervical or axillary lymphadenopathy noted. Carotids are 2+, JVD WNL LUNGS: Respiration seems nonlabored, no significant accessory muscle action noted. Breath sounds clear to auscultation bilaterally and equal noted. No wheezes rales or rhonchi noted. No significant dullness noted on percussion. CHEST: Palpation of the chest wall shows no significant chest wall tenderness. No other significant abnormalities noted. HEART: [place] [employer], No PSH, 1/6 KYLIE aortic area, 1/6 muhammad systolic murmur mitral area, no rubs, no gallops. ABDOMEN: Soft, no significant tenderness appreciated, normoactive bowel sounds. No guarding, no rebound. No rigidity noted . No masses appreciated. EXTREMITIES: Pedal pulses are 1-2+, no calf tenderness noted. No clubbing or cyanosis.trace to 1+ pedal edema noted NEUROLOGICAL: Focused neurological exam showed no significant neurologic deficit. Normal speech, no focal weakness appreciated. PSYCH: Normal mood, normal affect. Judgment and insight within normal limits. SKIN: No significant ecchymosis, skin is noted to be warm. MUSCULOSKELETAL EXAM: No significant acute joint swelling noted. Results Laboratory Results: 11/15/17 04:07 11/15/17 11/15/17 11/15/17 00:30 00:30 04:07 Sodium 131.7 L 133.6 L Potassium 5.0 5.3 H Chloride 102 104 Carbon Dioxide 26 25 Anion Gap 4 L 5 BUN 38 H 36 H Creatinine 1.55 H 1.41 H Est GFR ( Amer) 39 L 43 L Est GFR (Non-Af Amer) 32 L 36 L Glucose 95 84 Calcium 9.0 9.1 Phosphorus 4.4 Magnesium 2.2 2.2 Total Bilirubin 0.4 AST 36 ALT 36 Alkaline Phosphatase 45 Total Protein 5.7 L Albumin 3.3 L TSH 0.47 EKG Comments: Admission EKG from this morning reviewed. Showed sinus rhythm, occasional APCs no acute ST segment changes are noted. Impressions: Chest X-Ray 11/14/17 11:53 IMPRESSION: Linear left basilar atelectasis. Head CT 11/14/17 12:28 IMPRESSION: MILD CHRONIC CHANGES OF ATROPHY AND MICROVASCULAR ISCHEMIA. NO ACUTE PROCESS. EVIDENCE OF ACUTE STROKE: NO. Assessment & Plan - Diagnosis (1) Bradycardia Is this a current diagnosis for this admission?: Yes (2) Hyperkalemia Is this a current diagnosis for this admission?: Yes (3) Hypothyroid Qualifiers: Hypothyroidism type: acquired Qualified Code(s): E03.9 - Hypothyroidism, unspecified Is this a current diagnosis for this admission?: Yes (4) HTN (hypertension) Qualifiers: Hypertension type: essential hypertension Qualified Code(s): I10 - Essential (primary) hypertension Is this a current diagnosis for this admission?: Yes (5) Acute kidney injury superimposed on chronic kidney disease Is this a current diagnosis for this admission?: Yes - Notes Notes: Bradycardia: This is noted to be mostly nocturnal and currently asymptomatic. Patient has been on some blood pressure medications but that list is not available. Patient also noted to be hyperkalemic. Patient could be very sensitive to serum potassium level. Patient also has history of hypothyroidism. Currently seems to be on a small dose of Synthroid replacement. We will check a free T3 and free T4. May consider increasing Synthroid to 100 mcg per day. Cannot rule out vagal stimulation. Hyperkalemia: Patient may be very sensitive to potassium level. Recommend getting potassium level below 5.0. Hypothyroidism: Continue with replacement therapy. Consider optimizing replacement therapy. Hypertension: Agree with hydralazine. Alpha blockers tend not to cause bradycardia. May also consider diuretics. Acute on chronic kidney disease: Patient has fluctuating creatinine level going through records has been as I has in the threes. May consider nephrology evaluation. At this point recommend IV atropine on a as needed basis. Should patient have symptomatic bradycardia will then consider referral for permanent transvenous pacemaker placement. Do not think patient needs temporary pacemaker wire at this point. - Time Time Spent: 30 to 50 Minutes - CODE STATUS was discussed, patient remains full code. Surrogate decision-maker patient's daughter. Multiple medical problems were addressed. More than 50% of the time spent coordinating care, discussing management plans with involved caregivers. Management plans discussed with involved personnels. Medical decision making was of moderate to high complexity , patient's has multiple comorbidities. Medications reviewed and adjusted accordingly: Yes
--- NOTE | 2017-11-16 09:44 | PDOC PROGRESS REPORT ---
Subjective Progress Note for:: 11/16/17 Subjective:: Patient complaining of shortness of breath and concerned about high blood pressure. Last night patient was noted to be bradycardic, however reports asymptomatic. It seems patient did get IV atropine. This morning heart rate is stable. Blood pressure is noted to be high. Patient did complain of some shortness of breath. Patient also complaining of mild pedal edema. Reason For Visit: ACUTE KIDNEY INJURY Physical Exam Vital Signs: Temp Pulse Resp BP Pulse Ox 98.3 F 87 16 183/61 H 100 11/16/17 07:00 11/16/17 07:00 11/16/17 07:00 11/16/17 07:00 11/16/17 07:00 Intake & Output 11/15/17 11/16/17 11/17/17 06:59 06:59 06:59 Intake Total 600 1540 Output Total 500 Balance 100 1540 Weight 60.4 kg 63.3 kg Exam: GENERAL: well-nourished and in no acute distress. Alert and oriented x3 HEAD: Atraumatic, normocephalic. EYES: Pupils equal round and reactive to light, extraocular movements intact, sclera anicteric, conjunctiva are normal. ENT: TMs normal, nares patent, oropharynx clear without exudates. Moist mucous membranes. No oral ulcerations or bleeding gums noted NECK: supple without lymphadenopathy. Trachea is central. No cervical or axillary lymphadenopathy noted. Carotids are 2+, JVD 10 cm LUNGS: Respiration seems nonlabored, no significant accessory muscle action noted. Bibasilar fine crackles noted. No wheezes rales or rhonchi noted. No significant dullness noted on percussion. CHEST: Palpation of the chest wall shows no significant chest wall tenderness. No other significant abnormalities noted. HEART: [place] [employer], No PSH, 1/6 KYLIE aortic area, 1/6 muhammad systolic murmur mitral area, no rubs, no gallops. ABDOMEN: Soft, no significant tenderness appreciated, normoactive bowel sounds. No guarding, no rebound. No rigidity noted . No masses appreciated. EXTREMITIES: Pedal pulses are 1-2+, no calf tenderness noted. No clubbing or cyanosis.trace to 1+ pedal edema noted NEUROLOGICAL: Focused neurological exam showed no significant neurologic deficit. Normal speech, no focal weakness appreciated. PSYCH: Normal mood, normal affect. Judgment and insight within normal limits. SKIN: No significant ecchymosis, skin is noted to be warm. MUSCULOSKELETAL EXAM: No significant acute joint swelling noted. Results Laboratory Results: 11/15/17 04:07 11/15/17 04:07 Free T4 1.32 Free T3 pg/mL 3.38 Impressions: Chest X-Ray 11/14/17 11:53 IMPRESSION: Linear left basilar atelectasis. Head CT 11/14/17 12:28 IMPRESSION: MILD CHRONIC CHANGES OF ATROPHY AND MICROVASCULAR ISCHEMIA. NO ACUTE PROCESS. EVIDENCE OF ACUTE STROKE: NO. Assessment & Plan - Diagnosis (1) Bradycardia Is this a current diagnosis for this admission?: Yes (2) Hyperkalemia Is this a current diagnosis for this admission?: Yes (3) Hypothyroid Qualifiers: Hypothyroidism type: acquired Qualified Code(s): E03.9 - Hypothyroidism, unspecified Is this a current diagnosis for this admission?: Yes (4) HTN (hypertension) Qualifiers: Hypertension type: essential hypertension Qualified Code(s): I10 - Essential (primary) hypertension Is this a current diagnosis for this admission?: Yes (5) Acute kidney injury superimposed on chronic kidney disease Is this a current diagnosis for this admission?: Yes (6) Dyspnea Qualifiers: Dyspnea type: shortness of breath Qualified Code(s): R06.02 - Shortness of breath; R06.00 - Dyspnea, unspecified; R06.01 - Orthopnea Is this a current diagnosis for this admission?: Yes (7) CHF (congestive heart failure) Qualifiers: Heart failure type: diastolic Heart failure chronicity: unspecified Qualified Code(s): I50.30 - Unspecified diastolic (congestive) heart failure Is this a current diagnosis for this admission?: Yes - Notes Notes: Bradycardia: This is of some concern. Currently asymptomatic therefore will continue to observe. Avoid any acid cinthya or AV cinthya modifying agent. Currently on hydralazine. May consider adding nitrates, diuretics, peripheral alpha blockers for additional blood pressure control if needed. Agree with IV atropine for symptomatic episodes. Hyperkalemia: Recommend getting potassium below 5.0 and keeping it there. Hypothyroidism: Continue replacement therapy. Hypertension: Mildly elevated elevated blood pressure noted. This could cause bradycardia because of reflex phenomenon. Acute kidney injury. Exact etiology not clear continue to monitor renal functions. Dyspnea: Patient clinically felt to be in CHF from diastolic dysfunction. Moderate fluid replacement. Will give Lasix 40 mg IV. Patient seems to be in CHF most likely diastolic from fluid replacement. - Time Time with patient: Greater than 35 minutes - CODE STATUS was discussed, patient remains full code. Surrogate decision-maker unchanged. Multiple medical problems were addressed. More than 50% of the time spent coordinating care, discussing management plans with involved caregivers. Management plans discussed with involved personnels. Medical decision making was of moderate to high complexity, patient's has multiple comorbidities. Medications reviewed and adjusted accordingly: Yes
[2017-11-16 09:45] LABS: ABSOLUTE LYMPHOCYTES (AUTO) 0.6 10^3/uL (0.5-4.7); ABSOLUTE MONOCYTES (AUTO) 0.3 10^3/uL (0.1-1.4); ABSOLUTE NEUT (AUTO) 3.7 10^3/uL (1.7-8.2); BASOPHILS % (AUTO) 0.7 % (0-2); EOSINOPHILS % (AUTO) 0.6 % (0-6); HEMATOCRIT 34.4 % (36.0-47.0); HEMOGLOBIN 11.5 g/dL (12.0-15.5); LYMPHOCYTES % (AUTO) 12.7 % (13-45); MEAN CORPUSCULAR HEMOGLOBIN 31.1 pg (27.0-33.4); MEAN CORPUSCULAR HGB CONC 33.5 g/dL (32.0-36.0); MEAN CORPUSCULAR VOLUME 93 fl (80-97); MONOCYTES % (AUTO) 6.8 % (3-13); PLATELET COUNT 200 10^3/uL (150-450); RED BLOOD COUNT 3.71 10^6/uL (3.72-5.28); RED CELL DISTRIBUTION WIDTH 13.2 % (11.5-14.0); SEGMENTED NEUTROPHILS % (AUTO) 79.2 % (42-78); TOTAL CELLS COUNTED % (AUTO) 100 %; WHITE BLOOD COUNT 4.6 10^3/uL (4.0-10.5)
--- NOTE | 2017-11-16 09:47 | RADIOLOGY REPORT (SQ) ---
EXAM DESCRIPTION: CHEST SINGLE VIEW COMPLETED DATE/TIME: 11/16/2017 9:32 am REASON FOR STUDY: Dyspnea E03.9 HYPOTHYROIDISM, UNSPECIFIED A00.9 CHOLERA, UNSPECIFIED R06.09 OT ER FORMS OF DYSPNEA COMPARISON: 11/14/2017. NUMBER OF VIEWS: One view. TECHNIQUE: Single frontal radiographic view of the chest acquired. LIMITATIONS: None. FINDINGS: LUNGS AND PLEURA: No opacities, masses or pneumothorax. No pleural effusion. Attenuated bl ood vessels and flattened jai-diaphragms. MEDIASTINUM AND HILAR STRUCTURES: No masses. Contour normal. HEART AND VASCULAR STRUCTURES: Heart normal in size. Normal vasculature. BONES: No acute findings. HARDWARE: None in the chest. OTHER: No other significant finding. IMPRESSION: COPD. NO ACUTE RADIOGRAPHIC FINDING IN THE CHEST. TECHNICAL DOCUMENTATION: JOB ID: [id number] [employer]- All Rights Reserved Reading location - IP/workstation name: [email or web address]
[2017-11-16] MEDS ORDERED: LOSARTAN POTASSIUM 50 MG TABLET PO SCH (10:00)
[2017-11-16] MEDS ORDERED: FUROSEMIDE INJ/PF 20 MG/2 ML SDV IV ONE (10:00)
[2017-11-16 10:07] LABS: ANION GAP 6 (5-19); BLOOD UREA NITROGEN 20 mg/dL (7-20); CALCIUM 9.9 mg/dL (8.4-10.2); CARBON DIOXIDE 25 mmol/L (22-30); CHLORIDE 106 mmol/L (98-107); GLUCOSE 120 mg/dL (75-110); POTASSIUM 4.3 mmol/L (3.6-5.0)
[2017-11-16 10:20] LABS: NT PRO BNP 1610 pg/mL (<450)
[2017-11-16 10:22] LABS: TROPONIN I < 0.012 ng/mL
[2017-11-16] MEDS: FUROSEMIDE 40 MG TABLET PO SCH (10:35)
--- NOTE | 2017-11-16 13:11 | PDOC PROGRESS REPORT ---
Subjective Progress Note for:: 11/16/17 Subjective:: GUNNER PYLE is a 82 year old female with multiple medical problems presented to the ED with complaints of "shaking", "weak", and "a little confusion". It began yesterday or maybe a little the day before. She feels better now that she has received some IVFs. She doesn't know of any precipitating or exacerbating factors. She was recently started on Bactrim for a UTI. Reason For Visit: ACUTE KIDNEY INJURY Physical Exam Vital Signs: Temp Pulse Resp BP Pulse Ox 98 F 74 20 147/46 H 97 11/16/17 11:00 11/16/17 11:00 11/16/17 11:00 11/16/17 11:00 11/16/17 11:00 Intake & Output 11/15/17 11/16/17 11/17/17 06:59 06:59 06:59 Intake Total 600 1540 Output Total 500 Balance 100 1540 Weight 60.4 kg 63.3 kg General appearance: PRESENT: other - Elderly and frail Head exam: PRESENT: atraumatic Eye exam: PRESENT: conjunctiva pink, EOMI, PERRLA. ABSENT: scleral icterus Neck exam: ABSENT: carotid bruit, JVD, lymphadenopathy, thyromegaly Respiratory exam: PRESENT: clear to auscultation adan. ABSENT: rales, rhonchi, wheezes Cardiovascular exam: PRESENT: RRR. ABSENT: diastolic murmur, rubs, systolic murmur Pulses: PRESENT: normal dorsalis pedis pul GI/Abdominal exam: PRESENT: normal bowel sounds, soft. ABSENT: distended, guarding, mass, organolmegaly, rebound, tenderness Rectal exam: PRESENT: deferred Extremities exam: PRESENT: full ROM. ABSENT: calf tenderness, clubbing, pedal edema Musculoskeletal exam: PRESENT: ambulatory Neurological exam: PRESENT: alert, awake, oriented to person, oriented to place , oriented to time, oriented to situation, CN II-XII grossly intact. ABSENT: motor sensory deficit Psychiatric exam: PRESENT: appropriate affect, normal mood. ABSENT: homicidal ideation, suicidal ideation Results Laboratory Results: 11/16/17 09:34 11/16/17 09:34 11/15/17 11/16/17 11/16/17 04:07 09:34 09:34 WBC 4.6 RBC 3.71 L Hgb 11.5 L Hct 34.4 L MCV 93 MCH 31.1 MCHC 33.5 RDW 13.2 Plt Count 200 Seg Neutrophils % 79.2 H Lymphocytes % 12.7 L Monocytes % 6.8 Eosinophils % 0.6 Basophils % 0.7 Absolute Neutrophils 3.7 Absolute Lymphocytes 0.6 Absolute Monocytes 0.3 Absolute Eosinophils 0.0 Absolute Basophils 0.0 Sodium 137.0 Potassium 4.3 Chloride 106 Carbon Dioxide 25 Anion Gap 6 BUN 20 Creatinine 0.76 Est GFR ( Amer) > 60 Est GFR (Non-Af Amer) > 60 Glucose 120 H Calcium 9.9 Magnesium 1.7 Free T4 1.32 Free T3 pg/mL 3.38 11/16/17 09:34 Troponin I < 0.012 NT-Pro-B Natriuret Pep 1610 H Impressions: Head CT 11/14/17 12:28 IMPRESSION: MILD CHRONIC CHANGES OF ATROPHY AND MICROVASCULAR ISCHEMIA. NO ACUTE PROCESS. EVIDENCE OF ACUTE STROKE: NO. Chest X-Ray 11/16/17 00:00 IMPRESSION: COPD. NO ACUTE RADIOGRAPHIC FINDING IN THE CHEST. Assessment & Plan - Time Time Spent with patient: 15-24 minutes Medications reviewed and adjusted accordingly: Yes Anticipated discharge: Home Within: within 24 hours - Inpatient Certification Based on my medical assessment, after consideration of the patient's comorbidities, presenting symptoms, or acuity I expect that the services needed warrant INPATIENT care.: Yes Medical Necessity: Need For Continuous Telemetry Monitoring - Plan Summary Plan Summary: 1. Bradycardia, apparently getting down to the upper 20s during the night while she was sleeping. She was apparently asymptomatic. Consultation with Dr. White has been sought. Labs done today revealed no electrolyte abnormalities. A two-dimensional echocardiogram is pending. She is not on any significant AV cinthya blockade agent. Patient will need to further telemetry monitoring prior to discharge to decide on further treatment is indicated BNP is noted to be elevated 2.AURELIA due to dehydration as well as likely sulfa. Since then is currently on hold as well as Bactrim. Will continue IV fluid. And follow kidney function. Creatinine is improving down to 1.4 from 1.93 3.Urinary tract infection secondary to Citrobacter and Klebsiella for which she was on Bactrim. She has been treated with ceftriaxone and this will complete 7 days antibiotic treatment. 4. Hyperkalemia secondary to the kidney function as well as Bactrim. Potassium supplementation and losartan. Corrected 5. Hypertension BP currently poorly controlled. Continue to adjust medications as needed. Add NTG for vasodilation
[2017-11-16] MEDS: NITROGLYCERIN 2% OINTMENT 1 GM PACKET TP SCH ×2 (13:42→18:51)
[2017-11-16] MEDS: CEFTRIAXONE SODIUM 1,000 MG in NORMAL SALINE 100 ML IV SCH (16:13)
--- NOTE | 2017-11-16 18:27 | XCELERA REPORT ---
[address] [address] Transthoracic Echocardiogram Report Name: GUNNER PYLE Age: 82 yrs Gender: Female : 1935 Patient Status: Inpatient Patient Location: [address] [place] [address] Study Date: 11/16/2017 02:28 PM Height: 56 in Weight: 139 lb BSA: 1.5 m2 Procedure: A complete two-dimensional transthoracic echocardiogram was performed (2D, M-mode, spectral and color flow Doppler). The study was technically difficult with many images being suboptimal in quality. Reason For Study: Bradycardia, CHF Ordering Physician: MARCY DONG Performed By: Eden Izaguirre Interpretation Summary The study was technically difficult with many images being suboptimal in quality. Left ventricular systolic function is low normal. Doppler measurements suggest pseudonormalized left ventricular relaxation, which is associated with grade II/IV or mild to moderate diastolic dysfunction There is mild concentric left ventricular hypertrophy. The left ventricle is grossly normal size. Wall motion cannot be accurately commented on, but no definite regional wall motion abnormalities noted. The right ventricle is mildly dilated. The right ventricular systolic function is normal. The right atrium is mildly dilated. The left atrium is mildly dilated. There is a mild amount of mitral regurgitation There is no mitral valve stenosis. There is a trace amount of aortic regurgitation There is no aortic valve stenosis There is a trace to mild amount of tricuspid regurgitation There is mild pulmonary hypertension by echo Right ventricular systolic pressure is estimated to be elevated at 30- 40mmHg. The aortic root is not well visualized. The inferior vena cava was not well visualized Minimal pericardial effusion. MMode/2D Measurements & Calculations RVDd: 2.6 cm LVIDd: 4.1 cm FS: 39.3 % Ao root diam: 2.4 cm IVSd: 0.91 cm LVIDs: 2.5 cm EDV(Teich): 73.5 ml LVPWd: 0.81 cm ESV(Teich): 21.8 ml Ao root area: 4.5 cm2 EF(Teich): 70.3 % LA dimension: 3.2 cm Doppler Measurements & Calculations MV E max ruddy: MV P1/2t max ruddy: Ao V2 max: LV V1 max P.8 cm/sec 97.1 cm/sec 167.0 cm/sec 3.1 mmHg MV A max ruddy: MV P1/2t: 78.4 msec Ao max PG: LV V1 max: 105.3 cm/sec 11.1 mmHg 88.3 cm/sec MV E/A: 0.92 MVA(P1/2t): 2.8 cm2 MV dec slope: 362.7 cm/sec2 PA V2 max: TR max ruddy: 95.4 cm/sec 264.7 cm/sec PA max P.6 mmHgTR max P.0 mmHg Left Ventricle The left ventricle is grossly normal size. There is mild concentric left ventricular hypertrophy. Left ventricular systolic function is low normal. Doppler measurements suggest pseudonormalized left ventricular relaxation, which is associated with grade II/IV or mild to moderate diastolic dysfunction. Wall motion cannot be accurately commented on, but no definite regional wall motion abnormalities noted. Right Ventricle The right ventricle is mildly dilated. There is normal right ventricular wall thickness. The right ventricular systolic function is normal. Atria The right atrium is mildly dilated. The left atrium is mildly dilated. Interarterial septum not well visualized and not well dopplered. Cannot comment on ASD/PFO presence. Mitral Valve The mitral valve is grossly normal. There is no mitral valve stenosis. There is a mild amount of mitral regurgitation. Aortic Valve The aortic valve is not well visualized secondary to technical limitations. There is no aortic valve stenosis. There is a trace amount of aortic regurgitation. Tricuspid Valve The tricuspid valve is not well visualized, but is grossly normal. There is no tricuspid stenosis. There is a trace to mild amount of tricuspid regurgitation. There is mild pulmonary hypertension by echo. Right ventricular systolic pressure is estimated to be elevated at 30-40mmHg. Pulmonic Valve The pulmonic valve is not well visualized. Great Vessels The aortic root is not well visualized. The inferior vena cava was not well visualized. Effusions Minimal pericardial effusion. : MARCY DONG > Marcy Dong
[2017-11-16] MEDS ORDERED: NALOXONE HCL INJ/PF 0.4 MG/1 ML SDV IV ONE ×2 (20:00→20:30)
[2017-11-16] MEDS ORDERED: HYDRALAZINE HCL INJ/PF 20 MG/1 ML SDV IV PRN (20:15)
[2017-11-16] MEDS ORDERED: HYDRALAZINE HCL INJ/PF 20 MG/1 ML SDV ONE (20:30)
[2017-11-16] MEDS: ATORVASTATIN CALCIUM 20 MG TABLET PO SCH (21:14)
[2017-11-17] MEDS: NITROGLYCERIN 2% OINTMENT 1 GM PACKET TP SCH ×2 (00:24→05:14)
[2017-11-17] MEDS: HEPARIN SOD (PORCINE) 5,000 UNIT/ML 1 ML SYRINGE SUBCUT SCH (05:14)
[2017-11-17] MEDS: LEVOTHYROXINE SODIUM 0.088 MG TABLET PO SCH (05:16)
[2017-11-17] MEDS: MORPHINE SULFATE SR 15 MG TABLET PO SCH (05:17)
[2017-11-17] MEDS ORDERED: TIZANIDINE HCL 4 MG TABLET PO SCH (10:00)
[2017-11-17] MEDS ORDERED: MORPHINE SULFATE SR 15 MG TABLET PO SCH (10:00)
[2017-11-17] MEDS: ASPIRIN 81 MG TABLET, ENT COATED PO SCH (10:01)
[2017-11-17] MEDS: GABAPENTIN 300 MG CAPSULE PO SCH (10:02)
[2017-11-17] MEDS: FUROSEMIDE 40 MG TABLET PO SCH (10:02)
[2017-11-17] MEDS: HYDRALAZINE HCL 50 MG TABLET PO SCH (10:04)
[2017-11-17 10:29] VITALS: BP 143/65
--- NOTE | 2017-11-17 11:46 | PDOC PROGRESS REPORT ---
Subjective Progress Note for:: 11/17/17 Subjective:: Last night patient was noted to be bradycardic, exact symptom correlation was not available either from the patient or from looking at the chart. However it seems patient got Narcan. It caused the patient to have headaches, high blood pressure. It did however normalized the heart rate. Patient does want to continue with her MS Contin. She also declined a reduction in dose for MS Contin. This morning heart rate is stable. They are declining a pacemaker placement. Yesterday patient received IV Lasix following which she claims her dyspnea got better. Patient had no prior history of syncope or near syncope. The patient wants to be discharged with a event monitor/cardiac mobility telemetry monitoring being arranged through my office. I feel this is perfectly reasonable to get better symptom correlation. Have recommended that it may be worthwhile to consider Cymbalta therapy that might help with some pain management. Reason For Visit: ACUTE KIDNEY INJURY, DEHYDRATION, HYPERKALEMIA Physical Exam Vital Signs: Temp Pulse Resp BP Pulse Ox 98.6 F 93 13 143/65 H 99 11/17/17 10:26 11/17/17 10:26 11/17/17 10:26 11/17/17 10:26 11/17/17 10:26 Intake & Output 11/16/17 11/17/17 11/18/17 06:59 06:59 06:59 Intake Total 1120 Output Total 6 Balance 1114 Weight 63.2 kg Exam: GENERAL: well-nourished and in no acute distress. Alert and oriented x3 HEAD: Atraumatic, normocephalic. EYES: Pupils equal round and reactive to light, extraocular movements intact, sclera anicteric, conjunctiva are normal. ENT: TMs normal, nares patent, oropharynx clear without exudates. Moist mucous membranes. No oral ulcerations or bleeding gums noted NECK: supple without lymphadenopathy. Trachea is central. No cervical or axillary lymphadenopathy noted. Carotids are 2+, JVD WNL LUNGS: Respiration seems nonlabored, no significant accessory muscle action noted. Few bibasilar fine crackles noted no wheezes rales or rhonchi noted. No significant dullness noted on percussion. CHEST: Palpation of the chest wall shows no significant chest wall tenderness. No other significant abnormalities noted. HEART: [employer], No PSH, 1/6 KYLIE aortic area, 1/6 muhammad systolic murmur mitral area, no rubs, no gallops. ABDOMEN: Soft, no significant tenderness appreciated, normoactive bowel sounds. No guarding, no rebound. No rigidity noted . No masses appreciated. EXTREMITIES: Pedal pulses are 1-2+, no calf tenderness noted. No clubbing or cyanosis.trace pedal edema noted NEUROLOGICAL: Focused neurological exam showed no significant neurologic deficit. Normal speech, no focal weakness appreciated. PSYCH: Normal mood, normal affect. Judgment and insight within normal limits. SKIN: No significant ecchymosis, skin is noted to be warm. MUSCULOSKELETAL EXAM: No significant acute joint swelling noted. Results Impressions: Head CT 11/14/17 12:28 IMPRESSION: MILD CHRONIC CHANGES OF ATROPHY AND MICROVASCULAR ISCHEMIA. NO ACUTE PROCESS. EVIDENCE OF ACUTE STROKE: NO. Chest X-Ray 11/16/17 00:00 IMPRESSION: COPD. NO ACUTE RADIOGRAPHIC FINDING IN THE CHEST. Assessment & Plan - Diagnosis (1) Bradycardia Is this a current diagnosis for this admission?: Yes (2) Hyperkalemia Is this a current diagnosis for this admission?: Yes (3) Hypothyroid Qualifiers: Hypothyroidism type: acquired Qualified Code(s): E03.9 - Hypothyroidism, unspecified Is this a current diagnosis for this admission?: Yes (4) HTN (hypertension) Qualifiers: Hypertension type: essential hypertension Qualified Code(s): I10 - Essential (primary) hypertension Is this a current diagnosis for this admission?: Yes (5) Acute kidney injury superimposed on chronic kidney disease Is this a current diagnosis for this admission?: Yes (6) Dyspnea Qualifiers: Dyspnea type: shortness of breath Qualified Code(s): R06.02 - Shortness of breath; R06.00 - Dyspnea, unspecified; R06.01 - Orthopnea Is this a current diagnosis for this admission?: Yes (7) CHF (congestive heart failure) Qualifiers: Heart failure type: diastolic Heart failure chronicity: acute Qualified Code(s): I50.31 - Acute diastolic (congestive) heart failure Is this a current diagnosis for this admission?: Yes - Notes Notes: Bradycardia: This is of some concern. Currently asymptomatic therefore will continue to observe. Avoid any acid cinthya or AV cinthya modifying agent. Currently on hydralazine. May consider adding nitrates, diuretics, peripheral alpha blockers for additional blood pressure control if needed. Patient being discharged today. Patient will definitely benefit from cardiac event monitor/ mobile cardiac telemetry monitoring. This can be arranged through my office. Hyperkalemia: Recommend getting potassium below 5.0 and keeping it there. Potassium has normalized. Hypothyroidism: Continue replacement therapy. Hypertension: Mildly elevated elevated blood pressure noted. This could cause bradycardia because of reflex phenomenon. Acute kidney injury. Exact etiology not clear continue to monitor renal functions. Dyspnea: Patient clinically felt to be in CHF from diastolic dysfunction. Improved. Patient seems to be in CHF most likely diastolic from fluid replacement. CHF: [place] to be diastolic dysfunction, acute precipitated by excess volume infusion. However no one can be entirely sure. Cardiac enzymes negative. BNP was noted to be elevated. Have recommended low-salt and fluid restriction to 1500 cc per day. Patient may need intermittent diuretic therapy depending on symptoms. - Time Time with patient: Greater than 35 minutes - Significant time spent with the patient and the daughter explaining further evaluation and management plans. They can follow-up with me in the office if they wish. Medications reviewed and adjusted accordingly: Yes
--- NOTE | 2017-11-17 18:12 | PDOC DISCHARGE SUMMARY ---
General - Admit/Disc Date/PCP Admission Date/Primary Care Provider: 11/16/17 11:44 RENZO TENA MD Discharge Date: 11/17/17 - Discharge Diagnosis (1) Acute kidney injury superimposed on chronic kidney disease Is this a current diagnosis for this admission?: Yes (2) Bradycardia Is this a current diagnosis for this admission?: Yes (3) Opioid dependence Is this a current diagnosis for this admission?: Yes (4) Dehydration Is this a current diagnosis for this admission?: Yes (5) Hyperkalemia Is this a current diagnosis for this admission?: Yes (6) UTI (urinary tract infection) Is this a current diagnosis for this admission?: Yes (7) HTN (hypertension) Is this a current diagnosis for this admission?: Yes (8) Chronic pain disorder Is this a current diagnosis for this admission?: Yes - Additional Information Resuscitation Status: Full Code Discharge Diet: Cardiac Discharge Activity: Activity As Tolerated Home Medications: Alendronate Sodium [Fosamax 70 mg Tablet] 70 mg PO JIMENEZ 11/14/17 Aspirin [Adult Low Dose Aspirin EC] 81 mg PO DAILY 11/14/17 Atorvastatin Calcium [Lipitor 20 mg Tablet] 20 mg PO DAILY 11/14/17 Furosemide [Lasix 40 mg Tablet] 40 mg PO QAM 11/14/17 Gabapentin [Neurontin 300 mg Capsule] 600 mg PO Q12 11/14/17 Hydralazine HCl [Apresoline 50 mg Tablet] 50 mg PO TID 11/14/17 Hydromorphone HCl [Dilaudid 2 mg Tablet] 2 mg PO QIDP PRN 11/14/17 Levothyroxine Sodium [Synthroid] 88 mcg PO Q6AM 11/14/17 Losartan Potassium [Cozaar 25 mg Tablet] 50 mg PO QAM 11/14/17 Magnesium Chloride [Mag64] 128 mg PO BID 11/14/17 Morphine Sulfate [Morphine Sulfate ER] 15 mg PO BID 11/14/17 Omeprazole 40 mg PO BID 11/14/17 Tizanidine HCl [Zanaflex 4 mg Tablet] 2 mg PO TID tablet 11/17/17 History of Present Illness Patient complains of: story of Present Illness: GUNNER PYLE is a 82 year old female with multiple medical problems presented to the ED with complaints of "shaking", "weak", and "a little confusion". It began yesterday or maybe a little the day before. She feels better now that she has received some IVFs. She doesn't know of any precipitating or exacerbating factors. She was recently started on Bactrim 11/10/17 for a UTI. She has 5 tabs left in the bottle. Her daughters are present, and stated that she is improved. History of Present Illness: GUNNER PYLE is a 82 year old female Hospital Course Hospital Course: This patient was admitted with altered mental status and she was found to have an acute kidney failure as well as hypokalemia and dehydration on initial presentation. She was started on intravenous fluids. Kidney failure was thought to be multifactorial from Bactrim as well as losartan and poor oral intake. She was found to be hypokalemic which was also thought to be multifactorial especially iatrogenic. She was treated empirically with ceftriaxone to complete her course of antibiotics for a UTI. Patient was noted to have bradycardia during her hospital stay. She was seen by the vessel master because of this. Did not appear to be asymptomatic with this episodes of bradycardia however she was as low was 30 especially when she was sleeping. Last night it appears that she had another bradycardic episode and she was finally given some Narcan as it was felt that she was on a high-dose of MS Contin. Patient did seem to have some withdrawal reactions to Narcan. She was adamant on being released today and she says she prefers to go follow-up with [facility] vessel master in [place]. Since she is refusing to have any consideration for pacemaker done through this hospital or through the vessel master here and since she has been relatively asymptomatic except when she received the Narcan patient was discharged home with with strict instructions to go directly to Dr. White's office from the hospital for an event monitor. She is aware of risk of leaving the hospital without compression of her management although I did discharge her to the care of her daughter who will ensure that instructions followed. Her kidney function is reverted back to baseline and she is normokalemic. Patient refused to consider decreasing her MS Contin as she says she has been on this for a long time and reducing the dose was not an option for her. Dose of Zanaflex was decreased as well as losartan. Patient will need follow-up with her primary care physician and vessel master as explained above. Physical Exam Vital Signs: Temp Pulse Resp BP Pulse Ox 98.6 F 93 13 165/66 H 99 11/17/17 03:27 11/17/17 07:00 11/17/17 03:27 11/17/17 03:27 11/17/17 03:27 Intake & Output 11/16/17 11/17/17 11/18/17 06:59 06:59 06:59 Intake Total 1120 Output Total 6 Balance 1114 Weight 63.2 kg General appearance: PRESENT: no acute distress - elderly female Head exam: PRESENT: atraumatic, normocephalic Eye exam: PRESENT: conjunctival injection Neck exam: ABSENT: carotid bruit, JVD, lymphadenopathy, thyromegaly Respiratory exam: PRESENT: clear to auscultation adan. ABSENT: rales, rhonchi, wheezes Cardiovascular exam: PRESENT: RRR. ABSENT: diastolic murmur, rubs, systolic murmur Pulses: PRESENT: normal dorsalis pedis pul GI/Abdominal exam: PRESENT: normal bowel sounds, soft. ABSENT: distended, guarding, mass, organolmegaly, rebound, tenderness Rectal exam: PRESENT: deferred Extremities exam: PRESENT: full ROM. ABSENT: calf tenderness, clubbing, pedal edema Musculoskeletal exam: PRESENT: ambulatory Neurological exam: PRESENT: alert, awake, oriented to person, oriented to place , oriented to time Psychiatric exam: PRESENT: anxious Results Laboratory Results: Labs- All tests 24 hr 11/16/17 09:34 Troponin I < 0.012 NT-Pro-B Natriuret Pep 1610 H Labs- Last Values WBC 4.6 10^3/uL (4.0-10.5) 11/16/17 09:34 RBC 3.71 10^6/uL (3.72-5.28) L 11/16/17 09:34 Hgb 11.5 g/dL (12.0-15.5) L 11/16/17 09:34 Hct 34.4 % (36.0-47.0) L 11/16/17 09:34 MCV 93 fl (80-97) 11/16/17 09:34 MCH 31.1 pg (27.0-33.4) 11/16/17 09:34 MCHC 33.5 g/dL (32.0-36.0) 11/16/17 09:34 RDW 13.2 % (11.5-14.0) 11/16/17 09:34 Plt Count 200 10^3/uL (150-450) 11/16/17 09:34 Seg Neutrophils % 79.2 % (42-78) H 11/16/17 09:34 Lymphocytes % 12.7 % (13-45) L 11/16/17 09:34 Monocytes % 6.8 % (3-13) 11/16/17 09:34 Eosinophils % 0.6 % (0-6) 11/16/17 09:34 Basophils % 0.7 % (0-2) 11/16/17 09:34 Absolute Neutrophils 3.7 10^3/uL (1.7-8.2) 11/16/17 09:34 Absolute Lymphocytes 0.6 10^3/uL (0.5-4.7) 11/16/17 09:34 Absolute Monocytes 0.3 10^3/uL (0.1-1.4) 11/16/17 09:34 Absolute Eosinophils 0.0 10^3/uL (0.0-0.6) 11/16/17 09:34 Absolute Basophils 0.0 10^3/uL (0.0-0.2) 11/16/17 09:34 Platelet Estimate Cancelled 11/14/17 10:55 Sodium 137.0 mmol/L (137-145) 11/16/17 09:34 Potassium 4.3 mmol/L (3.6-5.0) 11/16/17 09:34 Chloride 106 mmol/L (98-107) 11/16/17 09:34 Carbon Dioxide 25 mmol/L (22-30) 11/16/17 09:34 Anion Gap 6 (5-19) 11/16/17 09:34 BUN 20 mg/dL (7-20) 11/16/17 09:34 Creatinine 0.76 mg/dL (0.52-1.25) 11/16/17 09:34 Est GFR ( Amer) > 60 (>60) 11/16/17 09:34 Est GFR (Non-Af Amer) > 60 (>60) 11/16/17 09:34 Glucose 120 mg/dL (75-110) H 11/16/17 09:34 Calcium 9.9 mg/dL (8.4-10.2) 11/16/17 09:34 Phosphorus 4.4 mg/dL (2.5-4.5) 11/15/17 04:07 Magnesium 1.7 mg/dL (1.6-2.3) 11/16/17 09:34 Total Bilirubin 0.4 mg/dL (0.2-1.3) 11/15/17 04:07 Direct Bilirubin 0.4 mg/dL (0.0-0.4) 11/15/17 04:07 Neonat Total Bilirubin Not Reportable 11/15/17 04:07 Neonat Direct Bilirubin Not Reportable 11/15/17 04:07 Neonat Indirect Bili Not Reportable 11/15/17 04:07 AST 36 U/L (14-36) 11/15/17 04:07 ALT 36 U/L (9-52) 11/15/17 04:07 Alkaline Phosphatase 45 U/L (38-126) 11/15/17 04:07 Creatine Kinase 140 U/L (30-135) H 11/14/17 10:55 CK-MB (CK-2) 2.67 ng/mL (<4.55) 11/14/17 10:55 Troponin I < 0.012 ng/mL 11/16/17 09:34 NT-Pro-B Natriuret Pep 1610 pg/mL (<450) H 11/16/17 09:34 Total Protein 5.7 g/dL (6.3-8.2) L 11/15/17 04:07 Albumin 3.3 g/dL (3.5-5.0) L 11/15/17 04:07 TSH 0.47 uIU/mL (0.47-4.68) 11/15/17 00:30 Free T4 1.32 ng/dL (0.78-2.19) 11/15/17 04:07 Free T3 pg/mL 3.38 pg/mL (2.77-5.27) 11/15/17 04:07 Urine Color YELLOW 11/14/17 11:47 Urine Appearance TURBID 11/14/17 11:47 Urine pH 5.0 (5.0-9.0) 11/14/17 11:47 Ur Specific Isabella 1.009 11/14/17 11:47 Urine Protein NEGATIVE mg/dL (NEGATIVE) 11/14/17 11:47 Urine Glucose (UA) NEGATIVE mg/dL (NEGATIVE) 11/14/17 11:47 Urine Ketones NEGATIVE mg/dL (NEGATIVE) 11/14/17 11:47 Urine Blood NEGATIVE (NEGATIVE) 11/14/17 11:47 Urine Nitrite NEGATIVE (NEGATIVE) 11/14/17 11:47 Urine Bilirubin NEGATIVE (NEGATIVE) 11/14/17 11:47 Urine Urobilinogen NEGATIVE mg/dL (<2.0) 11/14/17 11:47 Ur Leukocyte Esterase NEGATIVE (NEGATIVE) 11/14/17 11:47 Urine WBC (Auto) 0 /HPF 11/14/17 11:47 Urine RBC (Auto) 2 /HPF 11/14/17 11:47 U Hyaline Cast (Auto) 22 /LPF 11/14/17 11:47 Squamous Epi Cells Auto <1 /HPF 11/14/17 11:47 Calcium Oxalate Cr Auto RARE /HPF 11/14/17 11:47 Uric Acid Cryst (Auto) MANY /HPF 11/14/17 11:47 Urine Mucus (Auto) RARE /LPF 11/14/17 11:47 Urine Ascorbic Acid 40 (NEGATIVE) H 11/14/17 11:47 Slides for Path Review Cancelled 11/14/17 10:55 Impressions: Head CT 11/14/17 12:28 IMPRESSION: MILD CHRONIC CHANGES OF ATROPHY AND MICROVASCULAR ISCHEMIA. NO ACUTE PROCESS. EVIDENCE OF ACUTE STROKE: NO. Chest X-Ray 11/16/17 00:00 IMPRESSION: COPD. NO ACUTE RADIOGRAPHIC FINDING IN THE CHEST. Qualifiers - * PATEINT BEING DISCHARGED WITH ANY OF THE FOLLOWING DIAGNOSIS?: No Plan Time Spent: Greater than 30 Minutes
== END 2017-11-17 10:50 | disposition home or self-care (01) | DRG 683 ==
LOC: ER 09:43 → EH 13:31 → UNDOADMOB 13:31 → 4N 15:15 → OBSVTOIN 11-16 11:44
PROVIDERS: ADMIT Emergency Medicine; ATTEND Emergency Medicine
DX: N17.9 Acute kidney failure, unspecified (principal); N39.0 Urinary tract infection, site not specified; E86.0 Dehydration; E87.5 Hyperkalemia; G89.29 Other chronic pain; N18.9 Chronic kidney disease, unspecified; R00.1 Bradycardia, unspecified; I12.9 Hypertensive chronic kidney disease with stage 1 through stage 4 chronic kidney disease, or unspecified chronic kidney disease; E78.00 Pure hypercholesterolemia, unspecified; E03.9 Hypothyroidism, unspecified; K21.9 Gastro-esophageal reflux disease without esophagitis; M15.9 Polyosteoarthritis, unspecified; B96.1 Klebsiella pneumoniae [K. pneumoniae] as the cause of diseases classified elsewhere; B96.89 Other specified bacterial agents as the cause of diseases classified elsewhere; T37.95XA Adverse effect of unspecified systemic anti-infective and antiparasitic, initial encounter; E87.6 Hypokalemia; T37.0X5A Adverse effect of sulfonamides, initial encounter; M41.9 Scoliosis, unspecified; Z88.6 Allergy status to analgesic agent; Z79.891 Long term (current) use of opiate analgesic; Z79.899 Other long term (current) drug therapy; Z90.49 Acquired absence of other specified parts of digestive tract; Z90.710 Acquired absence of both cervix and uterus; Z82.49 Family history of ischemic heart disease and other diseases of the circulatory system
CPT/HCPCS: 36415; 70450; 71045; 80048; 80053; 81001; 82550; 82553; 83735; 83880; 84100; 84439; 84443; 84481; 84484; 85025; 87040; 93005; 93010; 93306; 96360; 96361; 99285; G0378; J0360; J0461; J0696; J1644; J1940; J2310; J3490; J7030; J7040

== ENCOUNTER → 2017-11-23 | Outpatient (CLI) | payer MEDICARE ==
[2017-11-23 15:11] LABS: ANION GAP 5 (5-19); BLOOD UREA NITROGEN 22 mg/dL (7-20); CALCIUM 9.7 mg/dL (8.4-10.2); CARBON DIOXIDE 36 mmol/L (22-30); CHLORIDE 100 mmol/L (98-107); GLUCOSE 100 mg/dL (75-110); POTASSIUM 4.3 mmol/L (3.6-5.0); SODIUM 140.8 mmol/L (137-145)
== END ==
LOC: OD 13:59
PROVIDERS: ATTEND Family Medicine Geriatric Medicine
DX: E83.52 Hypercalcemia (principal); Z79.899 Other long term (current) drug therapy
CPT/HCPCS: 36415; 80048

== ENCOUNTER 2018-03-11 11:04 | Emergency (ER) | payer MEDICARE ==
[2018-03-11 11:15] VITALS: BP 154/58
--- NOTE | 2018-03-11 11:45 | ER Document Report ---
HPI - HPI Patient complains to provider of: Crusty rash under nose Onset: Last week Onset/Duration: Gradual Pain Level: 1 Context: 82-year-old female had a upper respiratory infection last week and then developed blisters on her upper lip under her nose that she suspected were fever blisters. It is now become more crusty and inflamed and is wondering if there is an bacterial infection now. No fever or chills. Associated Symptoms: None Exacerbated by: Denies Relieved by: Denies Similar symptoms previously: Yes Recently seen / treated by doctor: No - ROS ROS below otherwise negative: Yes Systems Reviewed and Negative: Yes All other systems reviewed and negative - REPRODUCTIVE Reproductive: DENIES: : Past Medical History - General Information source: Patient - Social History Smoking Status: Never Smoker Chew tobacco use (# tins/day): No Frequency of alcohol use: None Drug Abuse: None Lives with: Family Family History: Hypertension Patient has suicidal ideation: No Patient has homicidal ideation: No - Past Medical History Cardiac Medical History: Reports: Hx Hypercholesterolemia, Hx Hypertension Endocrine Medical History: Reports: Hx Hypothyroidism Renal/ Medical History: Denies: Hx Peritoneal Dialysis GI Medical History: Reports: Hx Gastroesophageal Reflux Disease Musculoskeletal Medical History: Reports Hx Arthritis - GENERALIZED Past Surgical History: Reports: Hx Cholecystectomy, Hx Hysterectomy, Hx Tonsillectomy - Immunizations Hx Diphtheria, Pertussis, Tetanus Vaccination: No - UNSURE Hx Pneumococcal Vaccination: 08/23/11 Vertical Provider Document - CONSTITUTIONAL Agree With Documented VS: Yes Exam Limitations: No Limitations General Appearance: No Apparent Distress - INFECTION CONTROL TRAVEL OUTSIDE OF THE [place] IN LAST 30 DAYS: No - HEENT Notes: Crusty inflamed coalescent lesions upper lip just beneath the nares with similar lesions superior left nares, healing HSV versus impetigo. - NECK Neck: Supple. negative: Lymphadenopathy-Left, Lymphadenopathy-Right Course - Re-evaluation Re-evalutation: 03/11/18 Cultures were obtained for HSV and wound culture - Vital Signs Vital signs: Temp Pulse Resp BP Pulse Ox 98.6 F 54 L 22 H 154/58 H 94 03/11/18 11:14 03/11/18 11:14 03/11/18 11:14 03/11/18 11:14 03/11/18 11:14 Discharge - Discharge Clinical Impression: Impetigo or herpes simplex virus, Upper lip and nose lesions Condition: Good Disposition: HOME, SELF-CARE Instructions: Bactroban Ointment ([facility]), Herpes Simplex ([facility]), Impetigo ([facility]) Additional Instructions: Return to the emergency room if symptoms worsen this weekend Thin layer of Bactroban 3 times a day to the crusted lesions Thin layer of pencyclovirr 1% cream every 2 hours during the day for 4 days Wound culture and viral culture are pending Prescriptions: Penciclovir [Denavir] 1 applic TP Q2H 4 Days #1 tube Referrals: RENZO TENA MD [Primary Care Provider] - 03/14/18
[2018-03-11] MEDS ORDERED: MUPIROCIN 2% OINTMENT 22 GM TP SCH (12:00)
== END 2018-03-11 12:07 | disposition home or self-care (01) ==
LOC: ER 11:04
DX: L98.9 Disorder of the skin and subcutaneous tissue, unspecified (principal); I10 Essential (primary) hypertension
CPT/HCPCS: 99283; 87070; 87205; 87250; A9270; J3490

== ENCOUNTER 2018-05-08 11:59 | Emergency (ER) | payer MEDICARE ==
[2018-05-08] MEDS ORDERED: MORPHINE SULFATE IR 15 MG TABLET PO ONE (12:57)
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
== END 2018-05-08 13:34 | disposition home or self-care (01) ==
LOC: ER 11:59
DX: Z76.0 Encounter for issue of repeat prescription (principal); G89.29 Other chronic pain; M54.5 Low back pain; E78.00 Pure hypercholesterolemia, unspecified; I10 Essential (primary) hypertension; E03.9 Hypothyroidism, unspecified; Z90.710 Acquired absence of both cervix and uterus; Z90.49 Acquired absence of other specified parts of digestive tract
CPT/HCPCS: 99281; A9270

== ENCOUNTER → 2018-05-17 | Outpatient (CLI) | payer MEDICARE ==
[2018-05-18 10:58] LABS: ABSOLUTE EOSINOPHILS # (AUTO) 0.1 10^3/uL (0.0-0.6); ABSOLUTE LYMPHOCYTES (AUTO) 1.2 10^3/uL (0.5-4.7); ABSOLUTE MONOCYTES (AUTO) 0.8 10^3/uL (0.1-1.4); ABSOLUTE NEUT (AUTO) 4.4 10^3/uL (1.7-8.2); BASOPHILS % (AUTO) 0.4 % (0-2); EOSINOPHILS % (AUTO) 1.4 % (0-6); HEMATOCRIT 33.2 % (36.0-47.0); HEMOGLOBIN 11.3 g/dL (12.0-15.5); LYMPHOCYTES % (AUTO) 18.9 % (13-45); MEAN CORPUSCULAR HEMOGLOBIN 30.9 pg (27.0-33.4); MEAN CORPUSCULAR HGB CONC 33.9 g/dL (32.0-36.0); MEAN CORPUSCULAR VOLUME 91 fl (80-97); MONOCYTES % (AUTO) 12.4 % (3-13); PLATELET COUNT 197 10^3/uL (150-450); RED BLOOD COUNT 3.64 10^6/uL (3.72-5.28); RED CELL DISTRIBUTION WIDTH 13.6 % (11.5-14.0); SEGMENTED NEUTROPHILS % (AUTO) 66.9 % (42-78); TOTAL CELLS COUNTED % (AUTO) 100 %; WHITE BLOOD COUNT 6.6 10^3/uL (4.0-10.5)
[2018-05-18 11:26] LABS: ALANINE AMINOTRANSFERASE 39 U/L (9-52); ANION GAP 8 (5-19); BLOOD UREA NITROGEN 28 mg/dL (7-20); CALCIUM 9.2 mg/dL (8.4-10.2); CARBON DIOXIDE 30 mmol/L (22-30); CHLORIDE 95 mmol/L (98-107); CHOLESTEROL 119.34 mg/dL (0-200); GLUCOSE 92 mg/dL (75-110); POTASSIUM 4.6 mmol/L (3.6-5.0); SODIUM 133.2 mmol/L (137-145); TRIGLYCERIDES 72 mg/dL (<150)
[2018-05-18 11:37] LABS: DIRECT LDL 42 mg/dL (<100)
== END ==
LOC: OD 08:09
PROVIDERS: ATTEND Family Medicine Geriatric Medicine
DX: I10 Essential (primary) hypertension (principal); E78.5 Hyperlipidemia, unspecified; D64.9 Anemia, unspecified
CPT/HCPCS: 36415; 80048; 80061; 84460; 85025

== ENCOUNTER → 2018-06-29 | Outpatient (CLI) | payer MEDICARE ==
[2018-06-29 15:58] LABS: ANION GAP 11 (5-19); BLOOD UREA NITROGEN 29 mg/dL (7-20); CALCIUM 9.6 mg/dL (8.4-10.2); CARBON DIOXIDE 31 mmol/L (22-30); CHLORIDE 99 mmol/L (98-107); GLUCOSE 124 mg/dL (75-110); POTASSIUM 4.7 mmol/L (3.6-5.0); SODIUM 141.4 mmol/L (137-145)
[2018-07-01 15:00] LABS: ABSOLUTE EOSINOPHILS # (AUTO) 0.1 10^3/uL (0.0-0.6); ABSOLUTE LYMPHOCYTES (AUTO) 1.2 10^3/uL (0.5-4.7); ABSOLUTE MONOCYTES (AUTO) 0.6 10^3/uL (0.1-1.4); ABSOLUTE NEUT (AUTO) 3.5 10^3/uL (1.7-8.2); BASOPHILS % (AUTO) 0.7 % (0-2); HEMATOCRIT 33.5 % (36.0-47.0); HEMOGLOBIN 11.4 g/dL (12.0-15.5); LYMPHOCYTES % (AUTO) 22.4 % (13-45); MEAN CORPUSCULAR HEMOGLOBIN 31.1 pg (27.0-33.4); MEAN CORPUSCULAR HGB CONC 34.1 g/dL (32.0-36.0); MEAN CORPUSCULAR VOLUME 91 fl (80-97); MONOCYTES % (AUTO) 11.7 % (3-13); PLATELET COUNT 210 10^3/uL (150-450); RED BLOOD COUNT 3.68 10^6/uL (3.72-5.28); RED CELL DISTRIBUTION WIDTH 13.1 % (11.5-14.0); SEGMENTED NEUTROPHILS % (AUTO) 63.2 % (42-78); TOTAL CELLS COUNTED % (AUTO) 100 %; WHITE BLOOD COUNT 5.5 10^3/uL (4.0-10.5)
== END ==
LOC: OD 14:48
PROVIDERS: ATTEND Family Medicine Geriatric Medicine
DX: I12.9 Hypertensive chronic kidney disease with stage 1 through stage 4 chronic kidney disease, or unspecified chronic kidney disease (principal); N18.3 Chronic kidney disease, stage 3 (moderate); E87.5 Hyperkalemia; D64.9 Anemia, unspecified; E87.6 Hypokalemia; E83.42 Hypomagnesemia; D50.9 Iron deficiency anemia, unspecified; R00.1 Bradycardia, unspecified; Z79.899 Other long term (current) drug therapy
CPT/HCPCS: 36415; 80048; 83735; 84443; 85025

== ENCOUNTER 2018-08-05 10:12 | Emergency (ER) | payer MEDICARE ==
--- NOTE | 2018-08-05 10:26 | ER Document Report ---
ED Medical Screen (RME) - General TRAVEL OUTSIDE OF THE [place] IN LAST 30 DAYS: No <LETICIA ROOT - Last Filed: 08/05/18 10:25> <GAVIN WATTS - Last Filed: 08/05/18 15:54> - General Chief Complaint: Leg Swelling Stated Complaint: SHAKING/SWOLLEN LEGS Time Seen by Provider: 08/05/18 10:24 Notes: GUNNER PYLE Female : 1935 MedRec# [id number] 08/05/18 10:13 - ED Nursing Note by ROBBIN WRIGHT Acct Num: [id number] : 1935 Patient Age: 82 PT AMBULATORY TO ER WITH C/O LEGS SWELLING FATIGUE CONFUSION AND FEELING SHAKY. REPORTS STARTED YESTERDAY. Initialized on 08/05/18 10:13 - END OF NOTE 82 years old female presents today with bilateral lower leg swelling, and shortness of breath as well as shakiness in the upper extremity. No fever chills or productive cough. Bilateral 4+ pitting edema and lower lung crackles were heard (LETICIA ROOT) - Related Data Allergies/Adverse Reactions: codeine [Codeine] Allergy (Severe, Verified 08/05/18 10:13) Depression Past Medical History - Social History Frequency of alcohol use: None Drug Abuse: None - Past Medical History Cardiac Medical History: Reports: Hx Hypercholesterolemia, Hx Hypertension Denies: Hx Congestive Heart Failure, Hx Coronary Artery Disease, Hx DVT, Hx Heart Attack, Hx Pulmonary Embolism Pulmonary Medical History: Denies: Hx Asthma, Hx Bronchitis - X 1 , Hx COPD, Hx Pneumonia Neurological Medical History: Denies: Hx Cerebrovascular Accident, Hx Seizures Endocrine Medical History: Reports: Hx Hypothyroidism. 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 Psychiatric Medical History: Denies: Hx Depression Past Surgical History: Reports: Hx Cholecystectomy, Hx Hysterectomy, Hx Tonsillectomy - Immunizations Hx Diphtheria, Pertussis, Tetanus Vaccination: No - UNSURE History of Influenza Vaccine for 05/2017 - 10/2017 Season: Yes Influenza Administration Date for 05/2017 - 10/2017 Season: 05/23/17 <LETICIA ROOT - Last Filed: 08/05/18 10:25> - Vital signs Vitals: Temp Pulse Resp BP Pulse Ox 99.0 F 40 L 18 196/37 H 97 08/05/18 10:17 08/05/18 10:17 08/05/18 10:17 08/05/18 10:17 08/05/18 10:17 Course <LETICIA ROOT - Last Filed: 08/05/18 10:25> - Laboratory Result Diagrams: 08/05/18 11:32 08/05/18 11:32 <GAVIN WATTS - Last Filed: 08/05/18 15:54> - Re-evaluation Re-evalutation: 08/05/18 15:54 Magnesium is normal. Urine analysis as recorded. I have added on a urine culture. Patient has no abdominal pain, dysuria, fevers, vomiting, or flank pain. (GAVIN WATTS) - Vital Signs Vital signs: Temp Pulse Resp BP Pulse Ox 99.0 F 40 L 21 H 169/64 H 98 08/05/18 10:17 08/05/18 10:17 08/05/18 13:01 08/05/18 13:01 08/05/18 13:01 - Laboratory Laboratory results interpreted by me: 08/05/18 08/05/18 08/05/18 11:32 11:32 11:32 Hgb 11.9 L Hct 35.4 L BUN 32 H Est GFR (Non-Af Amer) 57 L Glucose 121 H Ur Leukocyte Esterase SMALL H Urine Ascorbic Acid 20 H Doctor's Discharge <LETICIA ROOT - Last Filed: 08/05/18 10:25> <GAVIN WATTS - Last Filed: 08/05/18 15:54> - Discharge Clinical Impression: Shaking, Lower extremity edema Condition: Good Disposition: HOME, SELF-CARE Additional Instructions: Come back immediately with any chest pain, weakness or numbness, confusion, lower extremity pain or swelling, shortness of breath, fevers or vomiting, or any other acute problems. Please discontinue the new medication started 2 days ago as we have discussed. Please follow-up with your primary care physician and pain management physician as we have discussed. Referrals: RENZO TENA MD [Primary Care Provider] - Follow up as needed
--- NOTE | 2018-08-05 11:20 | ER Document Report ---
ED General - General Chief Complaint: Leg Swelling Stated Complaint: SHAKING/SWOLLEN LEGS Time Seen by Provider: 08/05/18 10:24 Information source: Patient Notes: 82-year-old female with past medical history that is extensive as recorded on morphine and Dilaudid secondary to osteoarthritis who presents today with the onset yesterday of some increased sleepiness as well as some "shaking". The patient supposedly this morning had some very slight confusion mixing up systolic and diastolic blood pressure when speaking to her daughter whom she lives with. Patient also noted some increased swelling to bilateral legs today. Patient has a history of this previously and is on diuretics. 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 Patient states that this is around the same time as the onset of her symptomatology. Patient denies any chest pain, cough, shortness of breath, fevers, vomiting, chest pain, headache, neck pain, or abdominal pain. TRAVEL OUTSIDE OF THE [place] IN LAST 30 DAYS: No - HPI Onset: Other - See above Quality of pain: Other - See above Severity: Mild Pain Level: 1 Associated symptoms: Other - See above Exacerbated by: Denies Relieved by: Denies Similar symptoms previously: No Recently seen / treated by doctor: No - Related Data Allergies/Adverse Reactions: codeine [Codeine] Allergy (Severe, Verified 08/05/18 10:13) Depression Past Medical History - Social History Smoking Status: Never Smoker Frequency of alcohol use: None Drug Abuse: None Family History: Hypertension Patient has suicidal ideation: No Patient has homicidal ideation: No - Past Medical History Cardiac Medical History: Reports: Hx Hypercholesterolemia, Hx Hypertension Denies: Hx Congestive Heart Failure, Hx Coronary Artery Disease, Hx DVT, Hx Heart Attack, Hx Pulmonary Embolism Pulmonary Medical History: Denies: Hx Asthma, Hx Bronchitis - X 1 , Hx COPD, Hx Pneumonia Neurological Medical History: Denies: Hx Cerebrovascular Accident, Hx Seizures Endocrine Medical History: Reports: Hx Hypothyroidism. Denies: Hx Diabetes Mellitus Type 1, Hx Diabetes Mellitus Type 2 Renal/ Medical History: Denies: Hx Peritoneal Dialysis GI Medical History: Reports: Hx Gastroesophageal Reflux Disease Musculoskeletal Medical History: Reports Hx Arthritis - GENERALIZED Psychiatric Medical History: Denies: Hx Depression Past Surgical History: Reports: Hx Abdominal Surgery - tummy tuck, Hx Cholecystectomy, Hx Hysterectomy, Hx Tonsillectomy - Immunizations Hx Diphtheria, Pertussis, Tetanus Vaccination: No - UNSURE Hx Pneumococcal Vaccination: 08/23/11 Review of Systems - Review of Systems Constitutional: denies: Fever EENT: denies: Eye discharge, Nose discharge Cardiovascular: denies: Chest pain, Palpitations Respiratory: denies: Short of breath Gastrointestinal: denies: Vomiting Genitourinary: denies: Dysuria Musculoskeletal: Leg swelling Skin: Other - no hives. denies: Rash Neurological/Psychological: Other - no slurred speech -: Yes All other systems reviewed and negative Physical Exam - Vital signs Vitals: Temp Pulse Resp BP Pulse Ox 99.0 F 40 L 18 196/37 H 97 08/05/18 10:17 08/05/18 10:17 08/05/18 10:17 08/05/18 10:17 08/05/18 10:17 Notes: Reviewed vital signs and nursing note as charted by RN. CONSTITUTIONAL: Alert and oriented and responds appropriately to questions. Well -appearing; well-nourished HEAD: Normocephalic; atraumatic EYES: PERRL; no nystagmus ENT: Normal nose; no rhinorrhea; moist mucous membranes; pharynx without lesions noted NECK: Supple without meningismus; no carotid bruits; non-tender; no cervical lymphadenopathy, no masses CARD: Regular rate and rhythm; no murmurs; symmetric distal pulses RESP: Normal chest excursion without splinting or tachypnea; breath sounds clear and equal bilaterally ABD/GI: Normal bowel sounds; non-distended; soft, non-tender; no abdominal bruits; no palpable organomegaly or masses BACK: The back appears normal and is non-tender to palpation EXT: Normal ROM in all joints; non-tender to palpation; bilateral lower extremity 1-2+ edema SKIN: No acute lesions noted NEURO: CN 2-12 intact; 5/5 bilateral upper and lower extremity strength with sensation intact to light touch PSYCH: The patient's mood and manner are appropriate. Grooming and personal hygiene are appropriate. Course - Re-evaluation Re-evalutation: 08/05/18 11:18 Given the history and physical examination we will order cardiac workup including chemistry. Patient has no focal neurological deficits or headaches. I do not believe baclofen and meloxicam are arriaga choices in this patient with a history as recorded. Patient's heart rate is ranging between 45 and 95 with a history of a junctional escape rhythm. EKG is pending. EKG shows a heart rate of 71, normal sinus rhythm with PACs present. No ST elevation. No obvious ST depression on my interpretation. Old EKG has been reviewed showing no appreciable change. 08/05/18 12:38 Labs as recorded. Still no focal neurological deficits, headache, or chest pain. Labs as recorded. I have called and spoken directly to the pain management office and they agree to hold on the baclofen and meloxicam at this time. 08/05/18 12:48 Labs as recorded. X-ray of the chest shows some mild cardiomegaly with no acute signs of heart failure, unchanged in size from the previous x-ray of the chest. Troponin unremarkable. Patient still denies any pain. Given the above history and physical examination I do believe it is reasonable to discharge the patient home at this time. Patient has had no abdominal pain, dysuria, or fevers. I do not believe a urine analysis would provide any useful utility. Given the very minimal lower extremity edema which is baseline for the patient without chest pain or shortness of breath, with an x-ray of the chest that is unchanged, I do not believe a BNP is necessary at this moment. - Vital Signs Vital signs: Temp Pulse Resp BP Pulse Ox 99.0 F 40 L 16 175/52 H 95 08/05/18 10:17 08/05/18 10:17 08/05/18 11:02 08/05/18 11:02 08/05/18 11:02 - Laboratory Result Diagrams: 08/05/18 11:32 08/05/18 11:32 Laboratory results interpreted by me: 08/05/18 08/05/18 11:32 11:32 Hgb 11.9 L Hct 35.4 L BUN 32 H Est GFR (Non-Af Amer) 57 L Glucose 121 H Discharge - Discharge Clinical Impression: Shaking, Lower extremity edema Condition: Good Disposition: HOME, SELF-CARE Additional Instructions: Come back immediately with any chest pain, weakness or numbness, confusion, lower extremity pain or swelling, shortness of breath, fevers or vomiting, or any other acute problems. Please discontinue the new medication started 2 days ago as we have discussed. Please follow-up with your primary care physician and pain management physician as we have discussed. Referrals: RENZO TENA MD [Primary Care Provider] - Follow up as needed
[2018-08-05 11:46] LABS: ABSOLUTE EOSINOPHILS # (AUTO) 0.1 10^3/uL (0.0-0.6); ABSOLUTE MONOCYTES (AUTO) 0.7 10^3/uL (0.1-1.4); ABSOLUTE NEUT (AUTO) 5.4 10^3/uL (1.7-8.2); BASOPHILS % (AUTO) 0.3 % (0-2); EOSINOPHILS % (AUTO) 1.3 % (0-6); HEMATOCRIT 35.4 % (36.0-47.0); HEMOGLOBIN 11.9 g/dL (12.0-15.5); MEAN CORPUSCULAR HEMOGLOBIN 30.8 pg (27.0-33.4); MEAN CORPUSCULAR HGB CONC 33.6 g/dL (32.0-36.0); MEAN CORPUSCULAR VOLUME 92 fl (80-97); MONOCYTES % (AUTO) 10.2 % (3-13); PLATELET COUNT 224 10^3/uL (150-450); RED BLOOD COUNT 3.85 10^6/uL (3.72-5.28); RED CELL DISTRIBUTION WIDTH 13.5 % (11.5-14.0); SEGMENTED NEUTROPHILS % (AUTO) 74.2 % (42-78); TOTAL CELLS COUNTED % (AUTO) 100 %; WHITE BLOOD COUNT 7.3 10^3/uL (4.0-10.5)
[2018-08-05 12:07] LABS: ALANINE AMINOTRANSFERASE 18 U/L (9-52); ALBUMIN 4.3 g/dL (3.5-5.0); ALKALINE PHOSPHATASE 71 U/L (38-126); ANION GAP 13 (5-19); ASPARTATE AMINO TRANSFERASE 31 U/L (14-36); BILIRUBIN,DIRECT 0.2 mg/dL (0.0-0.4); BILIRUBIN,TOTAL 0.7 mg/dL (0.2-1.3); BLOOD UREA NITROGEN 32 mg/dL (7-20); CALCIUM 9.3 mg/dL (8.4-10.2); CARBON DIOXIDE 30 mmol/L (22-30); CHLORIDE 100 mmol/L (98-107); CREATINE KINASE 90 U/L (30-135); GLUCOSE 121 mg/dL (75-110); TOTAL PROTEIN 7.1 g/dL (6.3-8.2)
--- NOTE | 2018-08-05 12:16 | RADIOLOGY REPORT (SQ) ---
EXAM DESCRIPTION: CHEST SINGLE VIEW COMPLETED DATE/TIME: 08/05/2018 11:45 am REASON FOR STUDY: Shortness of breath COMPARISON: 05/06/2016 EXAM PARAMETERS: NUMBER OF VIEWS: One view. TECHNIQUE: Single frontal radiographic view of the chest acquired. RADIATION DOSE: NA LIMITATIONS: None. FINDINGS: LUNGS AND PLEURA: No opacities, masses or pneumothorax. No pleural effusion. MEDIASTINUM AND HILAR STRUCTURES: No masses. Contour normal. HEART AND VASCULAR STRUCTURES: Cardiomegaly. BONES: No acute findings. HARDWARE: None in the chest. OTHER: No other significant finding. IMPRESSION: Cardiomegaly without acute abnormality of the lungs in AP projection. TECHNICAL DOCUMENTATION: JOB ID: [id number] [employer]- All Rights Reserved Reading location - IP/workstation name: [email or web address]
[2018-08-05 12:19] LABS: CREATINE KINASE MB 2.18 ng/mL (<4.55)
[2018-08-05 12:23] LABS: TROPONIN I < 0.012 ng/mL
[2018-08-05 13:49] VITALS: BP 169/64
[2018-08-05 14:37] LABS: APPEARANCE,URINE SLIGHTLY-CLOUDY; BILIRUBIN,URINE NEGATIVE (NEGATIVE); COLOR,URINE YELLOW; GLUCOSE, URINE NEGATIVE (NEGATIVE); KETONES,URINE NEGATIVE (NEGATIVE); LEUKOCYTE ESTERASE,URINE SMALL (NEGATIVE); NITRITE,URINE NEGATIVE (NEGATIVE); PROTEIN,URINE NEGATIVE (NEGATIVE); URINE SPECIFIC GRAVITY 1.009; UROBILINOGEN,URINE NEGATIVE mg/dL (<2.0)
--- NOTE | 2018-08-06 07:48 | EKG REPORT ---
SEVERITY:- OTHERWISE NORMAL ECG - SINUS ARRHYTHMIA, RATE 66-79 : Confirmed by: Yamilet Napier MD 06-Aug-2018 07:47:22
== END 2018-08-05 16:02 | disposition home or self-care (01) ==
LOC: ER 10:12
DX: R25.9 Unspecified abnormal involuntary movements (principal); R60.9 Edema, unspecified; E78.00 Pure hypercholesterolemia, unspecified; I10 Essential (primary) hypertension; E03.9 Hypothyroidism, unspecified; Z90.49 Acquired absence of other specified parts of digestive tract; Z88.6 Allergy status to analgesic agent; Z90.710 Acquired absence of both cervix and uterus
CPT/HCPCS: 36415; 71045; 80053; 81001; 82550; 82553; 83735; 84484; 85025; 87086; 87088; 87186; 93005; 93010; 99284

== ENCOUNTER → 2018-11-25 | Outpatient (CLI) | payer MEDICARE ==
[2018-11-25 10:48] LABS: HEMATOCRIT 33.2 % (36.0-47.0); HEMOGLOBIN 11.5 g/dL (12.0-15.5); MEAN CORPUSCULAR HEMOGLOBIN 31.6 pg (27.0-33.4); MEAN CORPUSCULAR HGB CONC 34.5 g/dL (32.0-36.0); MEAN CORPUSCULAR VOLUME 92 fl (80-97); PLATELET COUNT 196 10^3/uL (150-450); RED BLOOD COUNT 3.62 10^6/uL (3.72-5.28); RED CELL DISTRIBUTION WIDTH 13.6 % (11.5-14.0); WHITE BLOOD COUNT 6.6 10^3/uL (4.0-10.5)
[2018-11-25 11:03] LABS: ALANINE AMINOTRANSFERASE 29 U/L (9-52); CHOLESTEROL 112.53 mg/dL (0-200); TRIGLYCERIDES 44 mg/dL (<150)
[2018-11-25 11:05] LABS: ANION GAP 8 (5-19); BLOOD UREA NITROGEN 38 mg/dL (7-20); CARBON DIOXIDE 31 mmol/L (22-30); CHLORIDE 95 mmol/L (98-107); GLUCOSE 87 mg/dL (75-110); POTASSIUM 4.1 mmol/L (3.6-5.0); SODIUM 134.2 mmol/L (137-145)
[2018-11-25 11:10] LABS: APPEARANCE,URINE SLIGHTLY-CLOUDY; BILIRUBIN,URINE NEGATIVE (NEGATIVE); COLOR,URINE YELLOW; GLUCOSE, URINE NEGATIVE (NEGATIVE); KETONES,URINE NEGATIVE (NEGATIVE); LEUKOCYTE ESTERASE,URINE LARGE (NEGATIVE); NITRITE,URINE NEGATIVE (NEGATIVE); PROTEIN,URINE NEGATIVE (NEGATIVE); URINE SPECIFIC GRAVITY 1.006; UROBILINOGEN,URINE NEGATIVE mg/dL (<2.0)
[2018-11-25 11:14] LABS: DIRECT LDL 45 mg/dL (<100)
== END ==
LOC: OD 10:05
PROVIDERS: ATTEND Family Medicine Geriatric Medicine
DX: E78.5 Hyperlipidemia, unspecified (principal); Z79.899 Other long term (current) drug therapy; N18.2 Chronic kidney disease, stage 2 (mild); I12.9 Hypertensive chronic kidney disease with stage 1 through stage 4 chronic kidney disease, or unspecified chronic kidney disease; D64.9 Anemia, unspecified
CPT/HCPCS: 36415; 80048; 80061; 81001; 84460; 85027

== ENCOUNTER → 2019-02-20 | Outpatient (CLI) | payer MEDICARE ==
--- NOTE | 2019-02-21 09:26 | XCELERA REPORT ---
[address] [address] Lower Extremity Venous Evaluation Procedure: Color flow and duplex imaging bilaterally of the veins of the lower extremities as well as the Common Femoral veins. Right Sided Venous Evaluation Lucent,spaces in subcutaneous tissues of the leg, suggesting edema, noted. Normal vessel filling wall to wall, compression and augmentation as well as Colour flow down to the infrageniculate veins. Left Sided Venous Evaluation Lucent,spaces in subcutaneous tissues of the leg, suggesting edema, noted. Normal vessel filling wall to wall, compression and augmentation as well as Colour flow down to the infrageniculate veins. Interpretation Summary No duplex evidence of DVT or obstruction in the bilateral lower extremities. Considerable subcutaneous edema noted. Name: GUNNER PYLE Age: 83 yrs Gender: Female : 1935 Patient Status: Outpatient Patient Location: Study Date: 02/20/2019 04:02 PM Reason For Study: M79.89 Ordering Physician: RENZO TENA Performed By: Juju Thompson : RENZO TENA > James Hannah
== END ==
LOC: SP 15:05
PROVIDERS: ATTEND Family Medicine Geriatric Medicine
DX: M79.89 Other specified soft tissue disorders (principal)
CPT/HCPCS: 93970

== ENCOUNTER → 2019-02-24 | Outpatient (CLI) | payer MEDICARE ==
[2019-02-24 10:35] LABS: ABSOLUTE EOSINOPHILS # (AUTO) 0.1 10^3/uL (0.0-0.6); ABSOLUTE MONOCYTES (AUTO) 0.7 10^3/uL (0.1-1.4); ABSOLUTE NEUT (AUTO) 3.6 10^3/uL (1.7-8.2); BASOPHILS % (AUTO) 0.7 % (0-2); EOSINOPHILS % (AUTO) 2.2 % (0-6); HEMOGLOBIN 11.4 g/dL (12.0-15.5); LYMPHOCYTES % (AUTO) 18.9 % (13-45); MEAN CORPUSCULAR HEMOGLOBIN 30.9 pg (27.0-33.4); MEAN CORPUSCULAR HGB CONC 33.6 g/dL (32.0-36.0); MEAN CORPUSCULAR VOLUME 92 fl (80-97); MONOCYTES % (AUTO) 13.1 % (3-13); PLATELET COUNT 215 10^3/uL (150-450); RED CELL DISTRIBUTION WIDTH 13.4 % (11.5-14.0); SEGMENTED NEUTROPHILS % (AUTO) 65.1 % (42-78); TOTAL CELLS COUNTED % (AUTO) 100 %; WHITE BLOOD COUNT 5.5 10^3/uL (4.0-10.5)
[2019-02-24 11:00] LABS: ANION GAP 7 (5-19); BLOOD UREA NITROGEN 35 mg/dL (7-20); CALCIUM 9.3 mg/dL (8.4-10.2); CARBON DIOXIDE 36 mmol/L (22-30); CHLORIDE 95 mmol/L (98-107); GLUCOSE 97 mg/dL (75-110); POTASSIUM 4.3 mmol/L (3.6-5.0); SODIUM 137.5 mmol/L (137-145)
[2019-02-24 11:39] LABS: ANION GAP 7 (5-19); BLOOD UREA NITROGEN 35 mg/dL (7-20); CALCIUM 9.3 mg/dL (8.4-10.2); CARBON DIOXIDE 36 mmol/L (22-30); CHLORIDE 95 mmol/L (98-107); GLUCOSE 97 mg/dL (75-110); POTASSIUM 4.3 mmol/L (3.6-5.0); SODIUM 137.5 mmol/L (137-145)
== END ==
LOC: OD 09:33
PROVIDERS: ATTEND Family Medicine Geriatric Medicine
DX: I13.0 Hypertensive heart and chronic kidney disease with heart failure and stage 1 through stage 4 chronic kidney disease, or unspecified chronic kidney disease (principal); I50.9 Heart failure, unspecified; N18.2 Chronic kidney disease, stage 2 (mild); E87.5 Hyperkalemia; E87.1 Hypo-osmolality and hyponatremia; E03.9 Hypothyroidism, unspecified; D50.9 Iron deficiency anemia, unspecified; Z79.899 Other long term (current) drug therapy
CPT/HCPCS: 36415; 80048; 83735; 84443; 85025

== ENCOUNTER 2019-03-25 13:42 | Inpatient (IN) | payer MEDICARE ==
--- NOTE | 2019-03-25 14:20 | ER Document Report ---
ED Medical Screen (RME) - General Chief Complaint: Urinary Problem Stated Complaint: FLANK PAIN Time Seen by Provider: 03/25/19 14:18 Primary Care Provider: RENZO TENA MD [Primary Care Provider] - Follow up as needed Mode of Arrival: Wheelchair Information source: Patient, Relative Notes: Patient presents to the emergency department with complaints of having a deep sleep for the past 2 nights. Patient reports she was incontinent of urine last night while sleeping. She reports this is usually a sign of her having a UTI. Patient denies fever vomiting diarrhea. Denies pain with void. This does have a history of CHF CAD scoliosis hypothyroidism. Patient O2 sat in pit is 93% on room air. Respiratory rate is even unlabored. No recent weight gain. I have greeted and performed a rapid initial assessment of this patient. A comprehensive ED assessment and evaluation of the patient, analysis of test results and completion of the medical decision making process will be conducted by additional ED providers. Dictation of this chart was performed using voice recognition software; therefore, there may be some unintended grammatical errors. TRAVEL OUTSIDE OF THE [place] IN LAST 30 DAYS: No - Related Data Allergies/Adverse Reactions: codeine [Codeine] Allergy (Severe, Verified 03/25/19 13:42) Depression Past Medical History - Past Medical History Cardiac Medical History: Reports: Hx Hypercholesterolemia, Hx Hypertension Denies: Hx Congestive Heart Failure, Hx Coronary Artery Disease, Hx DVT, Hx Heart Attack, Hx Pulmonary Embolism Pulmonary Medical History: Denies: Hx Asthma, Hx Bronchitis - X 1 , Hx COPD, Hx Pneumonia Neurological Medical History: Denies: Hx Cerebrovascular Accident, Hx Seizures Endocrine Medical History: Reports: Hx Hypothyroidism. 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 Psychiatric Medical History: Denies: Hx Depression Past Surgical History: Reports: Hx Abdominal Surgery - tummy tuck, Hx Cholecystectomy, Hx Hysterectomy, Hx Tonsillectomy - Immunizations Hx Diphtheria, Pertussis, Tetanus Vaccination: No - UNSURE History of Influenza Vaccine for 05/2017 - 10/2017 Season: Yes Influenza Administration Date for 05/2017 - 10/2017 Season: 05/23/17 Physical Exam - Vital signs Vitals: Temp Pulse Resp BP Pulse Ox 97.9 F 77 16 107/74 93 03/25/19 13:48 03/25/19 13:48 03/25/19 13:48 03/25/19 13:48 03/25/19 13:48 Course - Vital Signs Vital signs: Temp Pulse Resp BP Pulse Ox 97.9 F 77 16 107/74 93 03/25/19 13:48 03/25/19 13:48 03/25/19 13:48 03/25/19 13:48 03/25/19 13:48 Doctor's Discharge - Discharge Referrals: RENZO TENA MD [Primary Care Provider] - Follow up as needed
[2019-03-25 15:24] LABS: HEMATOCRIT 37.2 % (36.0-47.0); HEMOGLOBIN 12.5 g/dL (12.0-15.5); MEAN CORPUSCULAR HGB CONC 33.5 g/dL (32.0-36.0); MEAN CORPUSCULAR VOLUME 93 fl (80-97); PLATELET COUNT 129 10^3/uL (150-450); RED BLOOD COUNT 4.02 10^6/uL (3.72-5.28); RED CELL DISTRIBUTION WIDTH 13.4 % (11.5-14.0); WHITE BLOOD COUNT 8.7 10^3/uL (4.0-10.5)
[2019-03-25 15:39] LABS: ALKALINE PHOSPHATASE 76 U/L (38-126); ANION GAP 11 (5-19); ASPARTATE AMINO TRANSFERASE 77 U/L (14-36); BILIRUBIN,DIRECT 0.3 mg/dL (0.0-0.4); BILIRUBIN,TOTAL 1.7 mg/dL (0.2-1.3); BLOOD UREA NITROGEN 40 mg/dL (7-20); CARBON DIOXIDE 32 mmol/L (22-30); CHLORIDE 92 mmol/L (98-107); GLUCOSE 110 mg/dL (75-110); TOTAL PROTEIN 6.8 g/dL (6.3-8.2)
[2019-03-25 15:46] LABS: ABSOLUTE LYMPHOCYTES# (MANUAL) 0.3 10^3/uL (0.5-4.7); ABSOLUTE MONOCYTES # (MANUAL) 0.2 10^3/uL (0.1-1.4); BAND NEUTROPHILS % (MANUAL) 1 % (3-5); BASOPHILS % (MANUAL) 0 % (0-2); EOSINOPHILS % (MANUAL) 0 % (0-6); LYMPHOCYTES % (MANUAL) 4 % (13-45); MONOCYTES % (MANUAL) 2 % (3-13); PLATELET COMMENT DECREASED; RBC MORPHOLOGY COMMENT NORMO-CYTIC/CHROMIC; SEGMENTED NEUTROPHILS % (MAN) 93 % (42-78); TOTAL CELLS COUNTED 100
--- NOTE | 2019-03-25 16:31 | ER Document Report ---
ED General - General Chief Complaint: Urinary Problem Stated Complaint: FLANK PAIN Time Seen by Provider: 03/25/19 14:18 Mode of Arrival: Wheelchair Information source: Patient, Relative, [facility] Records Notes: 83-year-old female with hypertension, hyperlipidemia, reflux, renal disease, hypothyroidism, chronic back pain (on morphine, Dilaudid) presents with concern for urinary incontinence which occurred last night while she was sleeping. Patient states that she was sleeping so soundly that she did not hear her daughter trying to awake her and then when she awoke this morning she was covere d in urine. Patient denies any recent illness, fever, nausea, vomiting, dysuria, hematuria, increased urinary frequency. Patient has had associated chills but states she recently received a shingles vaccine and reports that she was told 1 of the side effects may be chills. She states the last time this occurred she had a urinary tract infection. Patient also reports that she has had difficulty urinating since this morning despite drinking multiple glasses of water. TRAVEL OUTSIDE OF THE [place] IN LAST 30 DAYS: No - HPI Onset: Yesterday Onset/Duration: Sudden Quality of pain: No pain Severity: None Pain Level: Denies Associated symptoms: Chills. denies: Diarrhea, Fever, Nausea, Vomiting Exacerbated by: Denies Relieved by: Denies Similar symptoms previously: Yes Recently seen / treated by doctor: No - Related Data Allergies/Adverse Reactions: codeine [Codeine] Allergy (Severe, Verified 03/25/19 13:42) Depression Past Medical History - General Information source: Patient, Relative - Social History Smoking Status: Never Smoker Chew tobacco use (# tins/day): No Frequency of alcohol use: None Drug Abuse: None Lives with: Family Family History: Reviewed & Not Pertinent, Hypertension Patient has suicidal ideation: No Patient has homicidal ideation: No - Past Medical History Cardiac Medical History: Reports: Hx Hypercholesterolemia, Hx Hypertension Denies: Hx Congestive Heart Failure, Hx Coronary Artery Disease, Hx DVT, Hx Heart Attack, Hx Pulmonary Embolism Pulmonary Medical History: Denies: Hx Asthma, Hx Bronchitis - X 1 , Hx COPD, Hx Pneumonia Neurological Medical History: Denies: Hx Cerebrovascular Accident, Hx Seizures Endocrine Medical History: Reports: Hx Hypothyroidism. Denies: Hx Diabetes Mellitus Type 1, Hx Diabetes Mellitus Type 2 Renal/ Medical History: Denies: Hx Peritoneal Dialysis GI Medical History: Reports: Hx Gastroesophageal Reflux Disease Musculoskeletal Medical History: Reports Hx Arthritis - GENERALIZED Psychiatric Medical History: Denies: Hx Depression Past Surgical History: Reports: Hx Abdominal Surgery - tummy tuck, Hx Cholecystectomy, Hx Hysterectomy, Hx Tonsillectomy - Immunizations Hx Diphtheria, Pertussis, Tetanus Vaccination: No - UNSURE Hx Pneumococcal Vaccination: 08/23/11 Review of Systems - Review of Systems Notes: REVIEW OF SYSTEMS: CONSTITUTIONAL : Denies fever, chills, or sweats. Denies recent illness. Denies weight loss, recent hospitalizations. EENT: Denies visual changes, eye pain. Denies sore throat, oral lesions, diffi culty swallowing. CARDIOVASCULAR: Denies chest pain. Denies palpitations. Denies lower extremity edema. RESPIRATORY: Denies cough. Denies shortness of breath, wheezing. GASTROINTESTINAL: Denies abdominal pain or distention. Denies nausea, vomiting, or diarrhea. Denies blood in vomitus, stools, or per rectum. Denies black, tarry stools. Denies constipation. GENITOURINARY: Denies difficulty urinating, painful urination, frequency, blood in urine, or vaginal discharge. MUSCULOSKELETAL: Denies back or neck pain or stiffness. Denies joint pain or swelling. SKIN: Denies rash, lesions or sores. HEMATOLOGIC : Denies easy bruising or bleeding. LYMPHATIC: Denies swollen glands. NEUROLOGICAL: Denies confusion or altered mental status. Denies loss of consciousness. Denies dizziness or lightheadedness. Denies headache. Denies weakness or paralysis. Denies problems difficulty with ambulation, slurred speech. Denies sensory loss, numbness, or tingling. Denies seizures. PSYCHIATRIC: Denies anxiety or stress. Denies depression, suicidal ideation, or homicidal ideation. Denies visual or auditory hallucinations. Physical Exam - Vital signs Vitals: Temp Pulse Resp BP Pulse Ox 97.9 F 77 16 107/74 93 03/25/19 13:48 03/25/19 13:48 03/25/19 13:48 03/25/19 13:48 03/25/19 13:48 - Notes Notes: PHYSICAL EXAMINATION: GENERAL: Well-appearing, well-nourished and in no acute distress. HEAD: Atraumatic, normocephalic. EYES: Pupils equal round and reactive to light, extraocular movements intact, conjunctiva are normal. ENT: Nares patent, oropharynx clear without exudates. Moist mucous membranes. NECK: Normal range of motion, supple without lymphadenopathy LUNGS: Breath sounds clear to auscultation bilaterally and equal. No wheezes rales or rhonchi. HEART: Regular rate and rhythm without murmurs ABDOMEN: Soft, nontender, nondistended abdomen. No guarding, no rebound. No masses appreciated. Large hernia just superior to the umbilicus, Nontender. Female : deferred Musculoskeletal: Normal range of motion, no pitting or edema. No cyanosis. NEUROLOGICAL: Cranial nerves grossly intact. Normal speech, normal gait. No rmal sensory, motor exams PSYCH: Normal mood, normal affect. SKIN: Warm, Dry, normal turgor, no rashes or lesions noted. Course - Re-evaluation Re-evalutation: 03/25/19 17:43 Laboratory 03/25/19 03/25/19 03/25/19 15:08 15:08 15:08 WBC 8.7 RBC 4.02 Hgb 12.5 Hct 37.2 MCV 93 MCH 31.0 MCHC 33.5 RDW 13.4 Plt Count 129 L Total Counted 100 Seg Neutrophils % Not Reportable Seg Neuts % (Manual) 93 H Band Neutrophils % 1 L Lymphocytes % Not Reportable Lymphocytes % (Manual) 4 L Monocytes % Not Reportable Monocytes % (Manual) 2 L Eosinophils % Not Reportable Eosinophils % (Manual) 0 Basophils % Not Reportable Basophils % (Manual) 0 Absolute Neutrophils Not Reportable Abs Neuts (Manual) 8.2 Absolute Lymphocytes Not Reportable Abs Lymphs (Manual) 0.3 L Absolute Monocytes Not Reportable Abs Monocytes (Manual) 0.2 Absolute Eosinophils Not Reportable Absolute Eos (Manual) 0.0 Absolute Basophils Not Reportable Abs Basophils (Manual) 0.0 Platelet Comment DECREASED RBC Morph Comment NORMO-CYTIC/CHROMIC Sodium 134.5 L Potassium 4.0 Chloride 92 L Carbon Dioxide 32 H Anion Gap 11 BUN 40 H Creatinine 2.10 H Est GFR ( Amer) 27 L Est GFR (Non-Af Amer) 22 L Glucose 110 Calcium 9.0 Total Bilirubin 1.7 H Direct Bilirubin 0.3 Neonat Total Bilirubin Not Reportable Neonat Direct Bilirubin Not Reportable Neonat Indirect Bili Not Reportable AST 77 H ALT 52 Alkaline Phosphatase 76 NT-Pro-B Natriuret Pep 1740 H Total Protein 6.8 Albumin 4.0 Urine Color Urine Appearance Urine pH Ur Specific [place] Urine Protein Urine Glucose (UA) Urine Ketones Urine Blood Urine Nitrite Urine Bilirubin Urine Urobilinogen Ur Leukocyte Esterase Urine WBC (Auto) Urine RBC (Auto) Urine Bacteria (Auto) Urine WBC Clumps Squamous Epi Cells Auto Amorphous Sediment Auto Urine Mucus (Auto) Urine Ascorbic Acid 03/25/19 16:20 WBC RBC Hgb Hct MCV MCH MCHC RDW Plt Count Total Counted Seg Neutrophils % Seg Neuts % (Manual) Band Neutrophils % Lymphocytes % Lymphocytes % (Manual) Monocytes % Monocytes % (Manual) Eosinophils % Eosinophils % (Manual) Basophils % Basophils % (Manual) Absolute Neutrophils Abs Neuts (Manual) Absolute Lymphocytes Abs Lymphs (Manual) Absolute Monocytes Abs Monocytes (Manual) Absolute Eosinophils Absolute Eos (Manual) Absolute Basophils Abs Basophils (Manual) Platelet Comment RBC Morph Comment Sodium Potassium Chloride Carbon Dioxide Anion Gap BUN Creatinine Est GFR ( Amer) Est GFR (Non-Af Amer) Glucose Calcium Total Bilirubin Direct Bilirubin Neonat Total Bilirubin Neonat Direct Bilirubin Neonat Indirect Bili AST ALT Alkaline Phosphatase NT-Pro-B Natriuret Pep Total Protein Albumin Urine Color MALISSA Urine Appearance CLOUDY Urine pH 5.0 Ur Specific [place] 1.013 Urine Protein 30 H Urine Glucose (UA) NEGATIVE Urine Ketones NEGATIVE Urine Blood MODERATE H Urine Nitrite NEGATIVE Urine Bilirubin NEGATIVE Urine Urobilinogen NEGATIVE Ur Leukocyte Esterase LARGE H Urine WBC (Auto) >182 Urine RBC (Auto) 9 Urine Bacteria (Auto) 3+ Urine WBC Clumps MANY Squamous Epi Cells Auto 2 Amorphous Sediment Auto TRACE Urine Mucus (Auto) MANY Urine Ascorbic Acid NEGATIVE Temp Pulse Resp BP Pulse Ox 97.9 F 77 16 107/74 93 03/25/19 13:48 03/25/19 13:48 03/25/19 13:48 03/25/19 13:48 03/25/19 13:48 03/25/19 22:05 Chest X-Ray 03/25/19 17:37 IMPRESSION: NO ACUTE FINDINGS. Renal Ultrasound 03/25/19 18:09 IMPRESSION: NORMAL RENAL ULTRASOUND. 03/25/19 22:06 83-year-old female with hypertension, hyperlipidemia, reflux, renal disease, hypothyroidism, chronic back pain (on morphine, Dilaudid) presents with concern for urinary incontinence which occurred last night while she was sleeping. Patient states that she was sleeping so soundly that she did not hear her daughter trying to awake her and then when she awoke this morning she was covered in urine. Patient denies any recent illness, fever, nausea, vomiting, dysuria, hematuria, increased urinary frequency. Patient has had associated chills but states she recently received a shingles vaccine and reports that she was told 1 of the side effects may be chills. Vital signs reviewed and within normal limits. Patient does not appear toxic or dehydrated. She is in no acute distress. Previous medical records and nursing notes reviewed. Patient found to have a urinary tract infection and AURELIA. Patient will be admitted for observation, IV fluids. - Vital Signs Vital signs: Temp Pulse Resp BP Pulse Ox 97.9 F 77 16 107/74 93 03/25/19 13:48 03/25/19 13:48 03/25/19 13:48 03/25/19 13:48 03/25/19 13:48 - Laboratory Result Diagrams: 03/25/19 15:08 03/25/19 15:08 Laboratory results interpreted by me: 03/25/19 03/25/19 03/25/19 15:08 15:08 15:08 Plt Count 129 L Seg Neuts % (Manual) 93 H Band Neutrophils % 1 L Lymphocytes % (Manual) 4 L Monocytes % (Manual) 2 L Abs Lymphs (Manual) 0.3 L Sodium 134.5 L Chloride 92 L Carbon Dioxide 32 H BUN 40 H Creatinine 2.10 H Est GFR ( Amer) 27 L Est GFR (Non-Af Amer) 22 L Total Bilirubin 1.7 H AST 77 H NT-Pro-B Natriuret Pep 1740 H TSH Urine Protein Urine Blood Ur Leukocyte Esterase 03/25/19 03/25/19 15:08 16:20 Plt Count Seg Neuts % (Manual) Band Neutrophils % Lymphocytes % (Manual) Monocytes % (Manual) Abs Lymphs (Manual) Sodium Chloride Carbon Dioxide BUN Creatinine Est GFR ( Amer) Est GFR (Non-Af Amer) Total Bilirubin AST NT-Pro-B Natriuret Pep TSH 0.27 L Urine Protein 30 H Urine Blood MODERATE H Ur Leukocyte Esterase LARGE H Discharge - Discharge Clinical Impression: Chronic pain disorder, Acute kidney injury UTI (urinary tract infection) Qualifiers: Urinary tract infection type: site unspecified Hematuria presence: with hematuria Qualified Code(s): N39.0 - Urinary tract infection, site not specified Condition: Good Disposition: ADMITTED OBSERVATION Admitting Provider: [place] (Hospitalist) Unit Admitted: Medical Floor
[2019-03-25 17:05] LABS: AMORPHOUS SEDIMENT,URINE TRACE /HPF; APPEARANCE,URINE CLOUDY; BILIRUBIN,URINE NEGATIVE (NEGATIVE); COLOR,URINE AMBER; GLUCOSE, URINE NEGATIVE (NEGATIVE); KETONES,URINE NEGATIVE (NEGATIVE); LEUKOCYTE ESTERASE,URINE LARGE (NEGATIVE); NITRITE,URINE NEGATIVE (NEGATIVE); PROTEIN,URINE 30 mg/dL (NEGATIVE); URINE SPECIFIC GRAVITY 1.013; UROBILINOGEN,URINE NEGATIVE mg/dL (<2.0)
[2019-03-25] MEDS ORDERED: CEFTRIAXONE 1 GM/D5W RTU 50 ML IV ONE (17:37)
[2019-03-25] MEDS ORDERED: NORMAL SALINE 1000 ML 1,000 ML IV ONE (17:37)
--- NOTE | 2019-03-25 18:22 | ADVANCED CARE ---
- Diagnosis (1) Acute renal failure Diagnosis Current: Yes (2) Hypothyroidism Diagnosis Current: Yes (3) UTI (urinary tract infection) Diagnosis Current: Yes (4) CHF (congestive heart failure) Diagnosis Current: Yes Resuscitation Status: Full Code Discussion: Discussed with patient. She says she is a full code and prefers chest compressions, defibrillation or mechanical ventilation if the need arises. She says that her daughter, Kaelyn Martinez is her surrogate medical decision maker.
--- NOTE | 2019-03-25 18:22 | PDOC H&P ---
History of Present Illness Admission Date/PCP: RENZO TENA MD Patient complains of: lethargy History of Present Illness: GUNNER PYLE is a 83 year old female with a past medical history of hypothyroidism, hypertension, chronic low back pain, scoliosis and reported history of CHF who presented because of generalized weakness. Patient is with her daughter and bedside. Patient says that she had shingles shots last and since then started having sensation of feeling weak. Her daughter says that patient was noted to be a little more lethargic than usual in the past 2 days. She has also not been eating or drinking much in the past 2 days. Patient says that she does have the symptoms whenever she gets a urinary tract infection. She denies dysuria or hematuria. In the ER, she was noted to have acute renal failure with a creatinine of 2.1 from a recent baseline of 1.0. She does appear comfortable. She denies any chest pain or shortness of breath. Past Medical History Cardiac Medical History: Reports: Hyperlipidema, Hypertension Denies: Congestive Heart Failure, Coronary Artery Disease, DVT, Myocardial Infarction, Pulmonary Embolism Pulmonary Medical History: Denies: Asthma, Bronchitis - X 1 , Chronic Obstructive Pulmonary Disease (COPD), Pneumonia Neurological Medical History: Denies: Seizures Endocrine Medical History: Reports: Hypothyroidism Denies: Diabetes Mellitus Type 1, Diabetes Mellitus Type 2 GI Medical History: Reports: Gastroesophageal Reflux Disease Musculoskeltal Medical History: Reports: Arthritis - GENERALIZED Psychiatric Medical History: Denies: Depression Hematology: Denies: Anemia Past Surgical History Past Surgical History: Reports: Cholecystectomy, Hysterectomy, Tonsillectomy Social History Lives with: Family Smoking Status: Never Smoker Frequency of Alcohol Use: None Hx Recreational Drug Use: No Drugs: None Hx Prescription Drug Abuse: No Family History Family History: Reviewed & Not Pertinent, Hypertension Parental Family History Reviewed: Yes - No premature CAD Children Family History Reviewed: No Sibling(s) Family History Reviewed.: No Medication/Allergy Home Medications: Aspirin [Adult Low Dose Aspirin EC] 81 mg PO DAILY 11/14/17 Atorvastatin Calcium [Lipitor 20 mg Tablet] 20 mg PO QHS 11/14/17 Furosemide [Lasix 40 mg Tablet] 40 mg PO QAM 11/14/17 Gabapentin [Neurontin 300 mg Capsule] 600 mg PO Q12 11/14/17 Hydralazine HCl [Apresoline 50 mg Tablet] 25 mg PO Q12 11/14/17 Hydromorphone HCl [Dilaudid 2 mg Tablet] 2 mg PO QIDP PRN 11/14/17 Losartan Potassium [Cozaar 25 mg Tablet] 25 mg PO Q12 11/14/17 Magnesium Chloride [Mag64] 128 mg PO BID 11/14/17 Morphine Sulfate [Morphine Sulfate ER] 15 mg PO Q12 11/14/17 Tizanidine HCl [Zanaflex 4 mg Tablet] 2 mg PO TID tablet 11/17/17 Furosemide [Lasix] 20 mg PO NOON 03/25/19 Levothyroxine Sodium 50 mcg PO QHS 03/25/19 Allergies/Adverse Reactions: codeine [Codeine] Allergy (Severe, Verified 03/25/19 13:42) Depression Review of Systems All systems: reviewed and no additional remarkable complaints except as stated - As mentioned in HPI Physical Exam Vital Signs: Temp Pulse Resp BP Pulse Ox 97.9 F 77 16 107/74 93 03/25/19 13:48 03/25/19 13:48 03/25/19 13:48 03/25/19 13:48 03/25/19 13:48 Intake & Output 03/24/19 03/25/19 03/26/19 06:59 06:59 06:59 Weight 135 lb General appearance: PRESENT: no acute distress, well-developed, well-nourished Head exam: PRESENT: atraumatic, normocephalic Eye exam: PRESENT: conjunctiva pink, EOMI, PERRLA. ABSENT: scleral icterus Ear exam: PRESENT: normal external ear exam Mouth exam: PRESENT: moist, tongue midline Neck exam: ABSENT: carotid bruit, JVD, lymphadenopathy, thyromegaly Respiratory exam: PRESENT: clear to auscultation adan. ABSENT: rales, rhonchi, wheezes Cardiovascular exam: PRESENT: RRR. ABSENT: diastolic murmur, rubs, systolic murmur Pulses: PRESENT: normal dorsalis pedis pul GI/Abdominal exam: PRESENT: normal bowel sounds, soft. ABSENT: distended, guarding, mass, organolmegaly, rebound, tenderness Rectal exam: PRESENT: deferred Extremities exam: PRESENT: full ROM. ABSENT: calf tenderness, clubbing, pedal edema Neurological exam: PRESENT: alert, awake, oriented to person, oriented to place, oriented to time, oriented to situation, CN II-XII grossly intact. ABSENT: motor sensory deficit Results Laboratory Results: 03/25/19 15:08 03/25/19 15:08 03/25/19 03/25/19 03/25/19 15:08 15:08 16:20 WBC 8.7 RBC 4.02 Hgb 12.5 Hct 37.2 MCV 93 MCH 31.0 MCHC 33.5 RDW 13.4 Plt Count 129 L Seg Neutrophils % Not Reportable Lymphocytes % Not Reportable Monocytes % Not Reportable Eosinophils % Not Reportable Basophils % Not Reportable Absolute Neutrophils Not Reportable Absolute Lymphocytes Not Reportable Absolute Monocytes Not Reportable Absolute Eosinophils Not Reportable Absolute Basophils Not Reportable Sodium 134.5 L Potassium 4.0 Chloride 92 L Carbon Dioxide 32 H Anion Gap 11 BUN 40 H Creatinine 2.10 H Est GFR ( Amer) 27 L Est GFR (Non-Af Amer) 22 L Glucose 110 Calcium 9.0 Total Bilirubin 1.7 H AST 77 H Alkaline Phosphatase 76 Total Protein 6.8 Albumin 4.0 Urine Color MALISSA Urine Appearance CLOUDY Urine pH 5.0 Ur Specific [place] 1.013 Urine Protein 30 H Urine Glucose (UA) NEGATIVE Urine Ketones NEGATIVE Urine Blood MODERATE H Urine Nitrite NEGATIVE Ur Leukocyte Esterase LARGE H Urine WBC (Auto) >182 Urine RBC (Auto) 9 03/25/19 15:08 NT-Pro-B Natriuret Pep 1740 H Assessment and Plan - Diagnosis (1) Acute kidney injury Is this a current diagnosis for this admission?: Yes Plan: Likely prerenal from her poor oral intake in the setting of being on Lasix 40 mg twice daily and losartan. She has received a liter of fluid bolus in the ER. We will continue cautious/gentle hydration with normal saline at 50 cc/h due to her reported history of CHF. H no Er BNP is also slightly elevated. Repeat BMP tomorrow. Hold Lasix and ARB for now. Avoid hypotension. (2) Hypothyroidism Is this a current diagnosis for this admission?: Yes Plan: Resume Synthroid. We will recheck a TSH. (3) UTI (urinary tract infection) Qualifiers: Urinary tract infection type: site unspecified Hematuria presence: with hematuria Qualified Code(s): N39.0 - Urinary tract infection, site not specified; R31.9 - Hematuria, unspecified Is this a current diagnosis for this admission?: Yes Plan: Urinalysis does show UTI. Patient does state that she does not have any LUTS when she gets a UTI and just feels generally weak like what she is feeling at this time. will continue patient Rocephin. (4) CHF (congestive heart failure) Qualifiers: Heart failure type: diastolic Heart failure chronicity: acute Qualified Code(s): I50.31 - Acute diastolic (congestive) heart failure Is this a current diagnosis for this admission?: Yes Plan: We will hold Lasix for now as he does appear to be dehydrated. Cautious hydration for acute kidney injury. (5) Opioid dependence Is this a current diagnosis for this admission?: Yes Plan: She is on p.o. Dilaudid and morphine at home for her chronic back pain and scoliosis. Will resume morphine. Reduce dose of PRN Dilaudid. (6) HTN (hypertension) Qualifiers: Hypertension type: essential hypertension Qualified Code(s): I10 - Essential (primary) hypertension Is this a current diagnosis for this admission?: Yes Plan: Blood pressures are running in the low normal end. We will hold off on Lasix and losartan for now due to her acute renal failure. - Time Time Spent with patient: 25-34 minutes
--- NOTE | 2019-03-25 18:55 | RADIOLOGY REPORT (SQ) ---
EXAM DESCRIPTION: CHEST 2 VIEWS COMPLETED DATE/TIME: 03/25/2019 6:40 pm REASON FOR STUDY: cough COMPARISON: 08/05/2018 TECHNIQUE: Frontal and lateral radiographic views of the chest acquired. NUMBER OF VIEWS: Two view. LIMITATIONS: None. FINDINGS: LUNGS AND PLEURA: No pneumothorax. No consolidation or pleural effusion. MEDIASTINUM AND HILAR STRUCTURES: Stable. HEART AND VASCULAR STRUCTURES: Stable. BONES: No acute findings. HARDWARE: None in the chest. OTHER: No other significant finding. IMPRESSION: NO ACUTE FINDINGS. TECHNICAL DOCUMENTATION: JOB ID: [id number] 2010 [employer]- All Rights Reserved Reading location - IP/workstation name: [employer] [email or web address]
--- NOTE | 2019-03-25 19:17 | RADIOLOGY REPORT (SQ) ---
EXAM DESCRIPTION: U/S RETROPERITON (RENAL/AORTA) COMPLETED DATE/TIME: 03/25/2019 7:08 pm REASON FOR STUDY: acute renal failure COMPARISON: None. TECHNIQUE: Dynamic and static grayscale images acquired of the kidneys and bladder and recorded on P ACS. Additional selected color Doppler and spectral images recorded. LIMITATIONS: None. FINDINGS: RIGHT KIDNEY: Normal size, 11.1 cm. Normal echogenicity. No solid or suspicious masses. No hydronephrosis. No calcifications. LEFT KIDNEY: Normal size, 9.9 cm. Normal echogenicity. No solid or suspicious masses. No hydronephro sis. No calcifications. BLADDER: Bladder was empty and cannot be evaluated. OTHER FINDINGS: No other significant finding. IMPRESSION: NORMAL RENAL ULTRASOUND. TECHNICAL DOCUMENTATION: JOB ID: [id number] [employer]- All Rights Reserved Reading location - IP/workstation name: [email or web address]
[2019-03-25] MEDS ORDERED: MORPHINE SULFATE IR 15 MG TABLET PO ONE (19:45)
[2019-03-25] MEDS ORDERED: CEFTRIAXONE 1 GM/D5W RTU 1 GM/50 ML RTUPB IV ONE ×2 (20:00→21:23)
[2019-03-25] MEDS: HEPARIN SOD (PORCINE) 5,000 UNIT/ML 1 ML VIAL SUBCUT SCH (21:33)
[2019-03-25] MEDS: NORMAL SALINE 1000 ML 1,000 ML IV PRN (21:49)
[2019-03-26 06:59] LABS: ANION GAP 10 (5-19); BLOOD UREA NITROGEN 55 mg/dL (7-20); CALCIUM 8.3 mg/dL (8.4-10.2); CARBON DIOXIDE 28 mmol/L (22-30); CHLORIDE 94 mmol/L (98-107); GLUCOSE 116 mg/dL (75-110); POTASSIUM 4.1 mmol/L (3.6-5.0)
[2019-03-26] MEDS: HYDROMORPHONE HCL 2 MG TABLET PO PRN ×3 (09:00→19:17)
[2019-03-26] MEDS ORDERED: MORPHINE SULFATE IR 15 MG TABLET PO SCH (10:00)
[2019-03-26] MEDS: ASPIRIN 81 MG TABLET, CHEWABLE PO SCH (10:07)
[2019-03-26] MEDS: LEVOTHYROXINE SODIUM 0.088 MG TABLET PO SCH (10:08)
[2019-03-26] MEDS: HEPARIN SOD (PORCINE) 5,000 UNIT/ML 1 ML VIAL SUBCUT SCH ×2 (10:09→21:13)
[2019-03-26 11:04] LABS: FREE T3 3.04 pg/mL (2.77-5.27); FREE T4 (FREE THYROXINE) 1.1 ng/dL (0.78-2.19)
[2019-03-26] MEDS ORDERED: MAG HYDROX/AL HYDROX/SIMETH SUSP 30 ML UDCUP PO PRN (11:09)
--- NOTE | 2019-03-26 14:32 | PDOC PROGRESS REPORT ---
Subjective Progress Note for:: 03/26/19 Subjective:: This is a 83 year old female with a past medical history of hypothyroidism, hypertension, chronic low back pain, scoliosis and reported history of CHF who presented because of generalized weakness. She was found to have a UTI and acute renal failure. She was started on gentle hydration due to a reported history of CHF. No acute event overnight. She denies acute complaints. Creatinine has only slightly improved down to 1.9. She denies chest pain or shortness of breath. She is diuresing well. Will increase IV fluids from 50 to 75 cc/h. Reason For Visit: ARF,DEHTDRATION,UTI Physical Exam Vital Signs: Temp Pulse Resp BP Pulse Ox 98.0 F 72 15 124/87 H 92 03/26/19 11:29 03/26/19 11:29 03/26/19 11:29 03/26/19 11:29 03/26/19 11:29 Intake & Output 03/25/19 03/26/19 03/27/19 06:59 06:59 06:59 Intake Total 1050 120 Balance 1050 120 Weight 137 lb 12.623 oz General appearance: PRESENT: no acute distress, well-developed, well-nourished Head exam: PRESENT: atraumatic, normocephalic Eye exam: PRESENT: conjunctiva pink, EOMI, PERRLA. ABSENT: scleral icterus Ear exam: PRESENT: normal external ear exam Mouth exam: PRESENT: moist, tongue midline Neck exam: ABSENT: carotid bruit, JVD, lymphadenopathy, thyromegaly Respiratory exam: PRESENT: clear to auscultation adan. ABSENT: rales, rhonchi, wheezes Cardiovascular exam: PRESENT: RRR. ABSENT: diastolic murmur, rubs, systolic murmur Pulses: PRESENT: normal dorsalis pedis pul GI/Abdominal exam: PRESENT: normal bowel sounds, soft. ABSENT: distended, guarding, mass, organolmegaly, rebound, tenderness Rectal exam: PRESENT: deferred Neurological exam: PRESENT: alert, awake, oriented to person, oriented to place, oriented to time, oriented to situation, CN II-XII grossly intact. ABSENT: motor sensory deficit Results Laboratory Results: 03/25/19 15:08 03/26/19 06:41 03/25/19 03/25/19 03/25/19 15:08 15:08 15:08 WBC 8.7 RBC 4.02 Hgb 12.5 Hct 37.2 MCV 93 MCH 31.0 MCHC 33.5 RDW 13.4 Plt Count 129 L Seg Neutrophils % Not Reportable Lymphocytes % Not Reportable Monocytes % Not Reportable Eosinophils % Not Reportable Basophils % Not Reportable Absolute Neutrophils Not Reportable Absolute Lymphocytes Not Reportable Absolute Monocytes Not Reportable Absolute Eosinophils Not Reportable Absolute Basophils Not Reportable Sodium 134.5 L Potassium 4.0 Chloride 92 L Carbon Dioxide 32 H Anion Gap 11 BUN 40 H Creatinine 2.10 H Est GFR ( Amer) 27 L Est GFR (Non-Af Amer) 22 L Glucose 110 Calcium 9.0 Total Bilirubin 1.7 H AST 77 H Alkaline Phosphatase 76 Total Protein 6.8 Albumin 4.0 TSH 0.27 L Free T4 Free T3 pg/mL Urine Color Urine Appearance Urine pH Ur Specific [place] Urine Protein Urine Glucose (UA) Urine Ketones Urine Blood Urine Nitrite Ur Leukocyte Esterase Urine WBC (Auto) Urine RBC (Auto) 03/25/19 03/26/19 03/26/19 16:20 06:41 06:41 WBC RBC Hgb Hct MCV MCH MCHC RDW Plt Count Seg Neutrophils % Lymphocytes % Monocytes % Eosinophils % Basophils % Absolute Neutrophils Absolute Lymphocytes Absolute Monocytes Absolute Eosinophils Absolute Basophils Sodium 131.9 L Potassium 4.1 Chloride 94 L Carbon Dioxide 28 Anion Gap 10 BUN 55 H Creatinine 1.94 H Est GFR ( Amer) 30 L Est GFR (Non-Af Amer) 25 L Glucose 116 H Calcium 8.3 L Total Bilirubin AST Alkaline Phosphatase Total Protein Albumin TSH Free T4 Cancelled Free T3 pg/mL Cancelled Urine Color MALISSA Urine Appearance CLOUDY Urine pH 5.0 Ur Specific [place] 1.013 Urine Protein 30 H Urine Glucose (UA) NEGATIVE Urine Ketones NEGATIVE Urine Blood MODERATE H Urine Nitrite NEGATIVE Ur Leukocyte Esterase LARGE H Urine WBC (Auto) >182 Urine RBC (Auto) 9 03/26/19 09:49 WBC RBC Hgb Hct MCV MCH MCHC RDW Plt Count Seg Neutrophils % Lymphocytes % Monocytes % Eosinophils % Basophils % Absolute Neutrophils Absolute Lymphocytes Absolute Monocytes Absolute Eosinophils Absolute Basophils Sodium Potassium Chloride Carbon Dioxide Anion Gap BUN Creatinine Est GFR ( Amer) Est GFR (Non-Af Amer) Glucose Calcium Total Bilirubin AST Alkaline Phosphatase Total Protein Albumin TSH Free T4 1.10 Free T3 pg/mL 3.04 Urine Color Urine Appearance Urine pH Ur Specific [place] Urine Protein Urine Glucose (UA) Urine Ketones Urine Blood Urine Nitrite Ur Leukocyte Esterase Urine WBC (Auto) Urine RBC (Auto) 03/25/19 15:08 NT-Pro-B Natriuret Pep 1740 H Impressions: Chest X-Ray 03/25/19 17:37 IMPRESSION: NO ACUTE FINDINGS. Renal Ultrasound 03/25/19 18:09 IMPRESSION: NORMAL RENAL ULTRASOUND. Assessment and Plan - Diagnosis (1) Acute renal failure Qualifiers: Acute renal failure type: unspecified Qualified Code(s): N17.9 - Acute kidney failure, unspecified Is this a current diagnosis for this admission?: Yes Plan: Likely prerenal from her poor oral intake in the setting of being on Lasix 40 mg twice daily and losartan. She has received a liter of fluid bolus in the ER. 03/26: Creatinine only slightly improved down to 1.9. Increase IV fluids to 75 cc/h. (2) Hypothyroidism Is this a current diagnosis for this admission?: Yes Plan: Continue Synthroid. (3) UTI (urinary tract infection) Qualifiers: Urinary tract infection type: site unspecified Hematuria presence: with hematuria Qualified Code(s): N39.0 - Urinary tract infection, site not s pecified; R31.9 - Hematuria, unspecified Is this a current diagnosis for this admission?: Yes Plan: Urinalysis does show UTI. Patient does state that she does not have any LUTS when she gets a UTI and just feels generally weak like what she is feeling at this time. Continue Rocephin. Urine culture pending. (4) CHF (congestive heart failure) Qualifiers: Heart failure type: diastolic Heart failure chronicity: acute Qualified Code(s): I50.31 - Acute diastolic (congestive) heart failure Is this a current diagnosis for this admission?: Yes Plan: We will hold Lasix for now as he does appear to be dehydrated. Cautious hydration for acute kidney injury. - Time Time Spent with patient: 15-24 minutes
[2019-03-26] MEDS: NORMAL SALINE 1000 ML 1,000 ML IV PRN (15:38)
[2019-03-26] MEDS: MORPHINE SULFATE IR 15 MG TABLET PO SCH (21:12)
[2019-03-26] MEDS ORDERED: CEFTRIAXONE SODIUM 1,000 MG in DEXTROSE 5%-WATER 50 ML IV SCH (22:00)
[2019-03-26] MEDS ORDERED: CEFTRIAXONE 1 GM/D5W RTU 1 GM/50 ML RTUPB IV SCH (22:00)
--- NOTE | 2019-03-26 23:09 | EKG REPORT ---
SEVERITY:- ABNORMAL ECG - SINUS RHYTHM SINUS PAUSE/ARREST WITH ATRIAL ESCAPE ABNRM R PROG, CONSIDER ASMI OR LEAD PLACEMENT BORDERLINE T ABNORMALITIES, LATERAL LEADS : Confirmed by: Yamilet Napier MD 26-Mar-2019 23:09:07
[2019-03-27 04:44] LABS: ANION GAP 7 (5-19); BLOOD UREA NITROGEN 39 mg/dL (7-20); CALCIUM 8.3 mg/dL (8.4-10.2); CARBON DIOXIDE 28 mmol/L (22-30); CHLORIDE 100 mmol/L (98-107); GLUCOSE 99 mg/dL (75-110); POTASSIUM 4.1 mmol/L (3.6-5.0)
[2019-03-27] MEDS: NORMAL SALINE 1000 ML 1,000 ML IV PRN (05:39)
[2019-03-27] MEDS: HYDROMORPHONE HCL 2 MG TABLET PO PRN (08:41)
[2019-03-27] MEDS: ASPIRIN 81 MG TABLET, CHEWABLE PO SCH (09:38)
[2019-03-27] MEDS: LEVOTHYROXINE SODIUM 0.088 MG TABLET PO SCH (09:38)
[2019-03-27] MEDS: MORPHINE SULFATE IR 15 MG TABLET PO SCH (09:39)
[2019-03-27 09:45] VITALS: BP 148/66
--- NOTE | 2019-03-27 14:38 | PDOC DISCHARGE SUMMARY ---
General - Admit/Disc Date/PCP Admission Date/Primary Care Provider: 03/26/19 13:38 RENZO TENA MD Discharge Date: 03/27/19 - Discharge Diagnosis (1) Acute renal failure Is this a current diagnosis for this admission?: Yes (2) Hypothyroidism Is this a current diagnosis for this admission?: Yes (3) UTI (urinary tract infection) Is this a current diagnosis for this admission?: Yes (4) CHF (congestive heart failure) Is this a current diagnosis for this admission?: Yes - Additional Information Resuscitation Status: Full Code Discharge Activity: Activity As Tolerated, Balance Activity w/Rest Prescriptions: Amoxicillin/Potassium Clav [Augmentin 500-125 Tablet] 1 tab PO BID 5 Days #10 tablet Losartan Potassium [Cozaar 25 mg Tablet] 25 mg PO DAILY #30 tablet Home Medications: Aspirin [Adult Low Dose Aspirin EC] 81 mg PO DAILY 11/14/17 Atorvastatin Calcium [Lipitor 20 mg Tablet] 20 mg PO QHS 11/14/17 Furosemide [Lasix 40 mg Tablet] 40 mg PO QAM 11/14/17 Gabapentin [Neurontin 300 mg Capsule] 600 mg PO Q12 11/14/17 Hydromorphone HCl [Dilaudid 2 mg Tablet] 2 mg PO QIDP PRN 11/14/17 Magnesium Chloride [Mag64] 128 mg PO BID 11/14/17 Morphine Sulfate [Morphine Sulfate ER] 15 mg PO Q12 11/14/17 Tizanidine HCl [Zanaflex 4 mg Tablet] 2 mg PO TID tablet 11/17/17 Levothyroxine Sodium 50 mcg PO QHS 03/25/19 Amoxicillin/Potassium Clav [Augmentin 500-125 Tablet] 1 tab PO BID 5 Days #10 tablet 03/27/19 Losartan Potassium [Cozaar 25 mg Tablet] 25 mg PO DAILY #30 tablet 03/27/19 History of Present Illness History of Present Illness: GUNNER PYLE is a 83 year old female with a past medical history of hy pothyroidism, hypertension, chronic low back pain, scoliosis and reported history of CHF who presented because of generalized weakness. Patient is with her daughter and bedside. Patient says that she had shingles shots last and since then started having sensation of feeling weak. Her daughter says that patient was noted to be a little more lethargic than usual in the past 2 days. She has also not been eating or drinking much in the past 2 days. Patient says that she does have the symptoms whenever she gets a urinary tract infection. She denies dysuria or hematuria. In the ER, she was noted to have acute renal failure with a creatinine of 2.1 from a recent baseline of 1.0. She does appear comfortable. She denies any chest pain or shortness of breath. Hospital Course Hospital Course: This is a 83 year old female with a past medical history of hypothyroidism, hypertension, chronic low back pain, scoliosis and reported history of CHF who presented because of generalized weakness. She was found to have a UTI and acute renal failure. She was started on gentle hydration due to a reported history of CHF. Her creatinine improved and returned to baseline with cautious hydration. Her losartan was also decreased from 25 mg q12 to 25 mg daily. She takes Lasix 40 mg in the morning and 20 mg at noon at home. She was recommended to keep her Lasix at 40 mg once a day for now. Encouraged to optimize hydration at home. She will closely ff-up with her PCP this week to recheck her renal function and adjust her Lasix appropriately. She does have episodes of bradycardia in the 40s. She says she had this for the past several years and that her doctor of naprapathy has done a Holter monitor before. Episodes are asymptomatic with normal blood pressures. Recommended discussing possible need for sleep study outpatient with PCP. Physical Exam Vital Signs: Temp Pulse Resp BP Pulse Ox 99.0 F 75 20 148/66 H 96 03/27/19 09:41 03/27/19 09:41 03/27/19 09:41 03/27/19 09:41 03/27/19 09:41 Pulse Oximeter Continuous Start: 03/26/19 19:34 Freq: RTQ4 Status: Discharge Protocol: Document 03/27/19 11:52 [facility] (Rec: 03/27/19 11:52 [facility] [id number]) Pulse Oximetry Assessment Equipment Usage Equipment Discontinued Continuous SpO2 Machine # N 6 Additional RT Notes Other pt discharged Intake & Output 03/26/19 03/27/19 03/28/19 06:59 06:59 06:59 Intake Total 1050 2212 Balance 1050 2212 Weight 137 lb 12.623 oz 137 lb 12.623 oz General appearance: PRESENT: no acute distress, well-developed, well-nourished Head exam: PRESENT: atraumatic, normocephalic Eye exam: PRESENT: conjunctiva pink, EOMI, PERRLA. ABSENT: scleral icterus Ear exam: PRESENT: normal external ear exam Mouth exam: PRESENT: moist, tongue midline Neck exam: ABSENT: carotid bruit, JVD, lymphadenopathy, thyromegaly Respiratory exam: PRESENT: clear to auscultation adan. ABSENT: rales, rhonchi, wheezes Cardiovascular exam: PRESENT: RRR. ABSENT: diastolic murmur, rubs, systolic murmur Pulses: PRESENT: normal dorsalis pedis pul GI/Abdominal exam: PRESENT: normal bowel sounds, soft. ABSENT: distended, guarding, mass, organolmegaly, rebound, tenderness Rectal exam: PRESENT: deferred Extremities exam: PRESENT: full ROM. ABSENT: calf tenderness, clubbing, pedal edema Neurological exam: PRESENT: alert, awake, oriented to person, oriented to place, oriented to time, oriented to situation, CN II-XII grossly intact. ABSENT: motor sensory deficit Results Laboratory Results: 03/25/19 15:08 03/27/19 03:52 03/27/19 03:52 Sodium 134.7 L Potassium 4.1 Chloride 100 Carbon Dioxide 28 Anion Gap 7 BUN 39 H Creatinine 1.07 Est GFR ( Amer) 59 L Est GFR (Non-Af Amer) 49 L Glucose 99 Calcium 8.3 L 03/25/19 16:20 Clean Catch Midstream Urine Culture - Final Klebsiella Pneumoniae 03/25/19 15:08 NT-Pro-B Natriuret Pep 1740 H Impressions: Chest X-Ray 03/25/19 17:37 IMPRESSION: NO ACUTE FINDINGS. Renal Ultrasound 03/25/19 18:09 IMPRESSION: NORMAL RENAL ULTRASOUND. Qualifiers - * PATIENT BEING DISCHARGED WITH ANY OF THE FOLLOWING DIAGNOSIS: No Acute Heart Failure - Is this a Heart Failure Patient?: No LVEF < 40%?: No- if no continue to question #3 3. Anticoagulant therapy for permanect/persistent/paraoxysmal Afib or Aflutter: N/A
== END 2019-03-27 10:52 | disposition home or self-care (01) | DRG 683 ==
LOC: ER 13:42 → EH 18:13 → 5 20:18 → OBSVTOIN 03-26 13:38
PROVIDERS: ADMIT Internal Medicine; ATTEND Internal Medicine
DX: N17.9 Acute kidney failure, unspecified (principal); N39.0 Urinary tract infection, site not specified; F11.20 Opioid dependence, uncomplicated; I50.32 Chronic diastolic (congestive) heart failure; I11.0 Hypertensive heart disease with heart failure; E03.9 Hypothyroidism, unspecified; E78.5 Hyperlipidemia, unspecified; K21.9 Gastro-esophageal reflux disease without esophagitis; R31.9 Hematuria, unspecified; B96.1 Klebsiella pneumoniae [K. pneumoniae] as the cause of diseases classified elsewhere; M41.9 Scoliosis, unspecified; Z79.82 Long term (current) use of aspirin; Z79.899 Other long term (current) drug therapy
CPT/HCPCS: 36415; 71046; 76770; 80048; 80053; 81001; 83880; 84439; 84443; 84481; 85025; 87086; 87088; 87186; 93005; 93010; 94762; 99285; G0378; J0696; J1644; J7030; J7060

== ENCOUNTER → 2019-04-13 | Outpatient (CLI) | payer MEDICARE ==
[2019-04-13 17:23] LABS: ANION GAP 7 (5-19); BLOOD UREA NITROGEN 24 mg/dL (7-20); CALCIUM 9.2 mg/dL (8.4-10.2); CARBON DIOXIDE 32 mmol/L (22-30); CHLORIDE 98 mmol/L (98-107); GLUCOSE 165 mg/dL (75-110); POTASSIUM 4.2 mmol/L (3.6-5.0)
[2019-04-13 17:31] LABS: ANION GAP 7 (5-19); BLOOD UREA NITROGEN 24 mg/dL (7-20); CALCIUM 9.2 mg/dL (8.4-10.2); CARBON DIOXIDE 32 mmol/L (22-30); CHLORIDE 98 mmol/L (98-107); GLUCOSE 165 mg/dL (75-110); POTASSIUM 4.2 mmol/L (3.6-5.0)
== END ==
LOC: OD 16:07
PROVIDERS: ATTEND Family Medicine Geriatric Medicine
DX: I13.0 Hypertensive heart and chronic kidney disease with heart failure and stage 1 through stage 4 chronic kidney disease, or unspecified chronic kidney disease (principal); I50.9 Heart failure, unspecified; N18.4 Chronic kidney disease, stage 4 (severe); E87.5 Hyperkalemia; E87.1 Hypo-osmolality and hyponatremia; E03.9 Hypothyroidism, unspecified; Z79.899 Other long term (current) drug therapy
CPT/HCPCS: 36415; 80048; 83735; 84443

== ENCOUNTER → 2019-05-30 | Outpatient (CLI) | payer MEDICARE | LOC: OD 11:06 | PROVIDERS: ATTEND Family Medicine Geriatric Medicine | DX: E03.9 Hypothyroidism, unspecified (principal); N18.4 Chronic kidney disease, stage 4 (severe); Z79.899 Other long term (current) drug therapy | CPT/HCPCS: 36415; 84443 ==

== ENCOUNTER → 2019-06-08 | Outpatient (CLI) | payer MEDICARE ==
[2019-06-08 11:45] LABS: ALBUMIN 4.3 g/dL (3.5-5.0); ALKALINE PHOSPHATASE 64 U/L (38-126); ANION GAP 10 (5-19); ASPARTATE AMINO TRANSFERASE 29 U/L (14-36); BILIRUBIN,DIRECT 0.2 mg/dL (0.0-0.4); BILIRUBIN,TOTAL 1.1 mg/dL (0.2-1.3); BLOOD UREA NITROGEN 24 mg/dL (7-20); CALCIUM 9.6 mg/dL (8.4-10.2); CARBON DIOXIDE 32 mmol/L (22-30); CHLORIDE 96 mmol/L (98-107); GLUCOSE 66 mg/dL (75-110); POTASSIUM 4.2 mmol/L (3.6-5.0); TOTAL PROTEIN 7.2 g/dL (6.3-8.2)
--- NOTE | 2019-06-08 12:40 | RADIOLOGY REPORT (SQ) ---
EXAM DESCRIPTION: KNEE LEFT 3 VIEWS; KNEE RIGHT 3 VIEWS COMPLETED DATE/TIME: 06/08/2019 12:02 pm REASON FOR STUDY: PAIN IN LEFT AND R KNEE COMPARISON: None. FINDINGS: Three views right knee: AP, lateral and tangential patellofemoral. Osteopenic. Mild dari drocalcinosis. No fracture or effusion. Relatively maintained joint spaces on nonweightbearing view s. Calcification along the medial knee likely reflects previous collateral ligament injury. Three views left knee: Osteopenia. Chondrocalcinosis no fracture or bone lesion or effusion. . TECHNICAL DOCUMENTATION: JOB ID: [id number] Reading location - IP/workstation name: [email or web address]
--- NOTE | 2019-06-08 12:40 | RADIOLOGY REPORT (SQ) ---
EXAM DESCRIPTION: KNEE LEFT 3 VIEWS; KNEE RIGHT 3 VIEWS COMPLETED DATE/TIME: 06/08/2019 12:02 pm REASON FOR STUDY: PAIN IN LEFT AND R KNEE COMPARISON: None. FINDINGS: Three views right knee: AP, lateral and tangential patellofemoral. Osteopenic. Mild dari drocalcinosis. No fracture or effusion. Relatively maintained joint spaces on nonweightbearing view s. Calcification along the medial knee likely reflects previous collateral ligament injury. Three views left knee: Osteopenia. Chondrocalcinosis no fracture or bone lesion or effusion. . TECHNICAL DOCUMENTATION: JOB ID: [id number] Reading location - IP/workstation name: [email or web address]
== END ==
LOC: LAB 10:53
PROVIDERS: ATTEND Family Medicine Geriatric Medicine
DX: N18.4 Chronic kidney disease, stage 4 (severe) (principal); E03.9 Hypothyroidism, unspecified; Z79.899 Other long term (current) drug therapy; M25.562 Pain in left knee; M25.561 Pain in right knee
CPT/HCPCS: 36415; 80053

== ENCOUNTER → 2019-07-09 | Outpatient (CLI) | payer MEDICARE ==
--- NOTE | 2019-07-10 08:34 | RADIOLOGY REPORT (SQ) ---
EXAM DESCRIPTION: MRI LT LOWER JOINT WITHOUT COMPLETED DATE/TIME: 07/09/2019 4:36 pm REASON FOR STUDY: (M25.562)PAIN IN LEFT KNEE M25.562 PAIN IN LEFT KNEE G89.4 CHRONIC PAIN SYNDROME COMPARISON: None. TECHNIQUE: Leftknee images acquired and stored on PACS. Multiplanar images include fat sensitive se quences as T1, water sensitive sequences as FST2 or STIR, cartilage sensitive sequences as FSPD, and gradient echo sequences. LIMITATIONS: None. FINDINGS: JOINT AND BURSAE: Small suprapatellar knee joint effusion is present. There is a moderate size Moody's cyst, 5 x 2 cm in size. Extravasation of fluid along the Moody's cyst, tracking along the superficial aspect of the medial head gastrocnemius muscle. BONE CORTEX AND MARROW: There is marrow edema throughout the medial tibial plateau without depression of the articular surface. A small osteochondral fracture is identified along the medial most edge o f the medial tibial plateau on coronal image 15 and sagittal images 7 and 8. ACL: Diffusely high in signal with intact anterior band on sagittal gradient echo image 13. This is worrisome for ACL strain PCL: Intact. MCL: Intact. No periligamentous edema or fluid. LCL: Intact. No periligamentous edema or fluid. MEDIAL MENISCUS: Diffuse horizontal tear throughout the medial meniscus. Medial subluxation of the m eniscus out of the joint on coronal image 17. No parameniscal cyst. LATERAL MENISCUS: No tears. No abnormal signal. MEDIAL COMPARTMENT: Mild chondromalacia.There is marrow edema throughout the medial tibial plateau wi thout depression of the articular surface. A small osteochondral fracture is identified along the me dial most edge of the medial tibial plateau on coronal image 15 and sagittal images 7 and 8. LATERAL COMPARTMENT: Cartilage preserved. No bone bruises or reactive marrow edema. No osteophytes. PATELLA: No chondromalacia. No subchondral cysts. Medial and lateral retinacula intact. EXTENSOR MECHANISM: Intact. Quadriceps and patella tendons normal. SOFT TISSUES: Moderate-sized Moody's cyst with extravasation of fluid along the superficial aspect of the medial head gastrocnemius muscle. Normal flow void in popliteal artery and vein. OTHER: No other significant finding. IMPRESSION: Injured anterior cruciate ligament Diffuse tear throughout the medial meniscus Bone contusion/osteochondral injury without articular surface depression, medial tibial plateau TECHNICAL DOCUMENTATION: JOB ID: [id number] [employer]- All Rights Reserved Reading location - IP/workstation name: [email or web address]
== END ==
LOC: RAD 15:30
PROVIDERS: ATTEND Physician Assistant
DX: M25.562 Pain in left knee (principal); G89.4 Chronic pain syndrome

== ENCOUNTER → 2019-08-02 | Outpatient (CLI) | payer MEDICARE ==
[2019-08-02 15:34] LABS: ABSOLUTE EOSINOPHILS # (AUTO) 0.1 10^3/uL (0.0-0.6); ABSOLUTE LYMPHOCYTES (AUTO) 1.1 10^3/uL (0.5-4.7); ABSOLUTE MONOCYTES (AUTO) 0.7 10^3/uL (0.1-1.4); ABSOLUTE NEUT (AUTO) 3.8 10^3/uL (1.7-8.2); BASOPHILS % (AUTO) 0.7 % (0-2); EOSINOPHILS % (AUTO) 1.4 % (0-6); HEMATOCRIT 34.2 % (36.0-47.0); HEMOGLOBIN 11.8 g/dL (12.0-15.5); LYMPHOCYTES % (AUTO) 19.4 % (13-45); MEAN CORPUSCULAR HEMOGLOBIN 31.3 pg (27.0-33.4); MEAN CORPUSCULAR HGB CONC 34.6 g/dL (32.0-36.0); MEAN CORPUSCULAR VOLUME 91 fl (80-97); PLATELET COUNT 208 10^3/uL (150-450); RED BLOOD COUNT 3.78 10^6/uL (3.72-5.28); RED CELL DISTRIBUTION WIDTH 13.7 % (11.5-14.0); SEGMENTED NEUTROPHILS % (AUTO) 66.5 % (42-78); TOTAL CELLS COUNTED % (AUTO) 100 %; WHITE BLOOD COUNT 5.8 10^3/uL (4.0-10.5)
[2019-08-02 15:44] LABS: ANION GAP 13 (5-19); BLOOD UREA NITROGEN 30 mg/dL (7-20); CALCIUM 9.7 mg/dL (8.4-10.2); CARBON DIOXIDE 32 mmol/L (22-30); CHLORIDE 93 mmol/L (98-107); GLUCOSE 90 mg/dL (75-110); POTASSIUM 4.2 mmol/L (3.6-5.0)
[2019-08-02 15:44] LABS: APPEARANCE,URINE SLIGHTLY-CLOUDY; BILIRUBIN,URINE NEGATIVE (NEGATIVE); COLOR,URINE YELLOW; GLUCOSE, URINE NEGATIVE (NEGATIVE); KETONES,URINE NEGATIVE (NEGATIVE); LEUKOCYTE ESTERASE,URINE NEGATIVE (NEGATIVE); NITRITE,URINE NEGATIVE (NEGATIVE); PROTEIN,URINE NEGATIVE (NEGATIVE); URINE SPECIFIC GRAVITY 1.005; UROBILINOGEN,URINE NEGATIVE mg/dL (<2.0)
== END ==
LOC: OD 14:07
PROVIDERS: ATTEND Physician Assistant Medical
DX: I13.0 Hypertensive heart and chronic kidney disease with heart failure and stage 1 through stage 4 chronic kidney disease, or unspecified chronic kidney disease (principal); I50.9 Heart failure, unspecified; N18.2 Chronic kidney disease, stage 2 (mild); R60.9 Edema, unspecified
CPT/HCPCS: 36415; 80048; 81001; 85025

== ENCOUNTER 2019-09-11 08:51 | Emergency (ER) | payer MEDICARE ==
--- NOTE | 2019-09-11 09:31 | ER Document Report ---
ED Medical Screen (RME) - General Chief Complaint: Leg Pain Stated Complaint: RIGHT LEG PAIN, SWELLING Time Seen by Provider: 09/11/19 09:28 Primary Care Provider: JANES MEDINA PA-C [Primary Care Provider] - Follow up as needed Mode of Arrival: Wheelchair Information source: Patient Notes: 84-year-old female presented to ED for complaint of right leg pain from upper to lower back of the leg and to the lateral aspect of the leg. She states she has not been on any long trips and she has not injured the leg. She states the right leg is much larger than the left leg. She is alert oriented respirations regular nonlabored speaking in full sentences. I have greeted and performed a rapid initial assessment of this patient. A comprehensive ED assessment and evaluation of the patient, analysis of test results and completion of medical decision making process will be conducted by an additional ED providers. TRAVEL OUTSIDE OF THE [place] IN LAST 30 DAYS: No - Related Data Allergies/Adverse Reactions: codeine [Codeine] Allergy (Severe, Verified 03/25/19 13:42) Depression Past Medical History - Past Medical History Cardiac Medical History: Reports: Hx Hypercholesterolemia, Hx Hypertension Denies: Hx Congestive Heart Failure, Hx Coronary Artery Disease, Hx DVT, Hx Heart Attack, Hx Pulmonary Embolism Pulmonary Medical History: Denies: Hx Asthma, Hx Bronchitis - X 1 , Hx COPD, Hx Pneumonia Neurological Medical History: Denies: Hx Cerebrovascular Accident, Hx Seizures Endocrine Medical History: Reports: Hx Hypothyroidism. 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 Psychiatric Medical History: Denies: Hx Depression Past Surgical History: Reports: Hx Abdominal Surgery - tummy tuck, Hx Cholecystectomy, Hx Hysterectomy, Hx Tonsillectomy - Immunizations Hx Diphtheria, Pertussis, Tetanus Vaccination: No - UNSURE Physical Exam - Vital signs Vitals: Temp Pulse Resp BP Pulse Ox 98.7 F 71 18 166/39 H 94 09/11/19 09:15 09/11/19 09:15 09/11/19 09:15 09/11/19 09:15 09/11/19 09:15 Course - Vital Signs Vital signs: Temp Pulse Resp BP Pulse Ox 98.7 F 71 18 166/39 H 94 09/11/19 09:15 09/11/19 09:15 09/11/19 09:15 09/11/19 09:15 09/11/19 09:15 Doctor's Discharge - Discharge Referrals: JANES MEDINA PA-C [Primary Care Provider] - Follow up as needed
[2019-09-11 10:21] LABS: ABSOLUTE EOSINOPHILS # (AUTO) 0.1 10^3/uL (0.0-0.6); ABSOLUTE LYMPHOCYTES (AUTO) 0.9 10^3/uL (0.5-4.7); ABSOLUTE MONOCYTES (AUTO) 0.7 10^3/uL (0.1-1.4); ABSOLUTE NEUT (AUTO) 4.8 10^3/uL (1.7-8.2); BASOPHILS % (AUTO) 0.5 % (0-2); EOSINOPHILS % (AUTO) 0.9 % (0-6); HEMATOCRIT 33.1 % (36.0-47.0); HEMOGLOBIN 11.6 g/dL (12.0-15.5); LYMPHOCYTES % (AUTO) 13.8 % (13-45); MEAN CORPUSCULAR HEMOGLOBIN 32.3 pg (27.0-33.4); MEAN CORPUSCULAR HGB CONC 35.2 g/dL (32.0-36.0); MEAN CORPUSCULAR VOLUME 92 fl (80-97); MONOCYTES % (AUTO) 11.4 % (3-13); PLATELET COUNT 204 10^3/uL (150-450); RED CELL DISTRIBUTION WIDTH 13.9 % (11.5-14.0); SEGMENTED NEUTROPHILS % (AUTO) 73.4 % (42-78); TOTAL CELLS COUNTED % (AUTO) 100 %; WHITE BLOOD COUNT 6.5 10^3/uL (4.0-10.5)
[2019-09-11 10:45] LABS: ALBUMIN 3.9 g/dL (3.5-5.0); ALKALINE PHOSPHATASE 66 U/L (38-126); ANION GAP 7 (5-19); ASPARTATE AMINO TRANSFERASE 30 U/L (14-36); BILIRUBIN,DIRECT 0.2 mg/dL (0.0-0.4); BLOOD UREA NITROGEN 25 mg/dL (7-20); CALCIUM 10.1 mg/dL (8.4-10.2); CARBON DIOXIDE 35 mmol/L (22-30); CHLORIDE 95 mmol/L (98-107); GLUCOSE 104 mg/dL (75-110); TOTAL PROTEIN 6.8 g/dL (6.3-8.2)
[2019-09-11] MEDS ORDERED: HYDROMORPHONE HCL 2 MG TABLET PO ONE (12:27)
--- NOTE | 2019-09-11 12:35 | ER Document Report ---
ED General - General Chief Complaint: Leg Pain Stated Complaint: RIGHT LEG PAIN, SWELLING Time Seen by Provider: 09/11/19 09:28 Primary Care Provider: JANES MEDINA PA-C [ALLIED HEALTH PROFESSIONAL] - Follow up as needed Mode of Arrival: Wheelchair TRAVEL OUTSIDE OF THE [place] IN LAST 30 DAYS: No - HPI Notes: Ngoc Bucio is an 84-year-old female followed primarily by Dr. Perales with a chief complaint of right lower leg swelling and pain for the past 48 hours. She denies trauma. She denies travel. No prior history of thromboembolic disease. 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 Patient has severe scoliosis primarily involving her lower back. She has been told she is not suitable surgical candidate. She is receiving pain management and is on hydromorphone at home 2 mg 4 times daily as needed as well as long- acting morphine. - Related Data Allergies/Adverse Reactions: codeine [Codeine] Allergy (Severe, Verified 03/25/19 13:42) Depression Past Medical History - General Information source: Patient, Relative - Social History Smoking Status: Former Smoker Family History: Reviewed & Not Pertinent, Hypertension Patient has suicidal ideation: No Patient has homicidal ideation: No - Past Medical History Cardiac Medical History: Reports: Hx Hypercholesterolemia, Hx Hypertension Denies: Hx Congestive Heart Failure, Hx Coronary Artery Disease, Hx DVT, Hx Heart Attack, Hx Pulmonary Embolism Pulmonary Medical History: Denies: Hx Asthma, Hx Bronchitis - X 1 , Hx COPD, Hx Pneumonia Neurological Medical History: Denies: Hx Cerebrovascular Accident, Hx Seizures Endocrine Medical History: Reports: Hx Hypothyroidism. Denies: Hx Diabetes Mellitus Type 1, Hx Diabetes Mellitus Type 2 Renal/ Medical History: Denies: Hx Peritoneal Dialysis GI Medical History: Reports: Hx Gastroesophageal Reflux Disease Musculoskeletal Medical History: Reports Hx Arthritis - GENERALIZED , Reports Other - Scoliosis Psychiatric Medical History: Denies: Hx Depression Past Surgical History: Reports: Hx Abdominal Surgery - tummy tuck, Hx Cho lecystectomy, Hx Hysterectomy, Hx Tonsillectomy - Immunizations Hx Diphtheria, Pertussis, Tetanus Vaccination: No - UNSURE Hx Pneumococcal Vaccination: 08/23/11 Review of Systems - Review of Systems Notes: Constitutional: Negative for fever. HENT: Negative for sore throat. Eyes: Negative for visual changes. Cardiovascular: Negative for chest pain. Respiratory: Negative for shortness of breath. Gastrointestinal: Negative for abdominal pain, vomiting or diarrhea. Genitourinary: Negative for dysuria. Musculoskeletal: As per HPI Skin: No rashes. Neurological: Negative for headaches, weakness or numbness. 10 point ROS negative except as marked above and in HPI. Physical Exam - Vital signs Vitals: Temp Pulse Resp BP Pulse Ox 98.7 F 71 18 166/39 H 94 09/11/19 09:15 09/11/19 09:15 09/11/19 09:15 09/11/19 09:15 09/11/19 09:15 - Notes Notes: GENERAL: Elderly female seen sitting in a wheelchair in no acute distress. SKIN: Good turgor no rashes. HEAD: Normocephalic atraumatic. EYES: PERRLA. EOMI. Conjunctivae and sclerae clear. EARS: CANALS AND TMS CLEAR. NOSE: CLEAR. MOUTH: Moist mucosa. Good dentition. No stridor or edema. No drooling. NECK: Supple. No masses or thyromegaly. No adenopathy. Carotids 2+ without bruits. No JVD. BACK: Prominent scoliosis with mild diffuse tenderness lower back. CHEST: Respirations unlabored. Breath sounds clear and symmetrical. HEART: Regular rhythm. No murmur gallop or rub. ABDOMEN: Soft nontender without masses, organomegaly or rebound. Bowel sounds normally active. No bruits. GENITALIA: Deferred. EXTREMITIES: 1+ pretibial edema bilaterally. Dilated superficial varicosities over both lower legs. No redness or warmth. Mild crepitus of both knees. No effusions. No calf tenderness. Cap refill less than 1.5 seconds. Dorsalis pedis and posterior tibial pulses 3+ and symmetrical. NEUROLOGICAL: GCS 15. Alert and oriented x3. Fluent speech. Cranial nerves II through XII intact. Sensorimotor and cerebellar normal. Normal tone. PSYCHIATRIC: Appropriate affect. Course - Re-evaluation Re-evalutation: 09/11/19 14:28 Ultrasound of right lower extremity was negative for DVT. Plain films showed no fracture or dislocation. Urinalysis showed some microscopic hematuria and pyur ia suggesting possible UTI. Patient is stable for outpatient follow-up with primary care and pain management. I discussed findings and recommendations with patient and her daughter and they expressed understanding. - Vital Signs Vital signs: Temp Pulse Resp BP Pulse Ox 98.7 F 71 18 166/39 H 94 09/11/19 09:15 09/11/19 09:15 09/11/19 09:15 09/11/19 09:15 09/11/19 09:15 - Laboratory Result Diagrams: 09/11/19 10:10 09/11/19 10:10 Laboratory results interpreted by me: 09/11/19 09/11/19 09/11/19 10:10 10:10 12:18 RBC 3.60 L Hgb 11.6 L Hct 33.1 L Sodium 136.8 L Chloride 95 L Carbon Dioxide 35 H BUN 25 H Urine Protein 30 H Urine Blood MODERATE H Urine Ascorbic Acid 40 H - Diagnostic Test Radiology reviewed: Reports reviewed Radiology results interpreted by me: 09/11/19 12:35 Doppler ultrasound right lower extremity negative for DVT per radiologist Discharge - Discharge Clinical Impression: Right lower extremity pain, Scoliosis Condition: Stable Disposition: HOME, SELF-CARE Additional Instructions: Return here as needed for new or worsening symptoms: Pain that is worsening or unimproved Uncontrolled vomiting High fever or shaking chills Overall worsening Prescriptions: Cephalexin Monohydrate [Keflex 500 mg Capsule] 500 mg PO Q6H 5 Days capsule Referrals: JANES MEDINA PA-C [ALLIED HEALTH PROFESSIONAL] - Follow up as needed
[2019-09-11 12:36] LABS: APPEARANCE,URINE SLIGHTLY-CLOUDY; BILIRUBIN,URINE NEGATIVE (NEGATIVE); COLOR,URINE YELLOW; GLUCOSE, URINE NEGATIVE (NEGATIVE); KETONES,URINE NEGATIVE (NEGATIVE); PROTEIN,URINE 30 mg/dL (NEGATIVE); URINE SPECIFIC GRAVITY 1.016; UROBILINOGEN,URINE NEGATIVE mg/dL (<2.0)
--- NOTE | 2019-09-11 13:28 | RADIOLOGY REPORT (SQ) ---
EXAM DESCRIPTION: TIBIA FIBULA RIGHT COMPLETED DATE/TIME: 09/11/2019 1:04 pm REASON FOR STUDY: pain COMPARISON: None. NUMBER OF VIEWS: Two views. TECHNIQUE: Two radiographic images acquired of the right tibia and fibula to include the knee and an kle in at least one projection. LIMITATIONS: None. FINDINGS: MINERALIZATION: Osteopenia. BONES: No acute fracture or dislocation. SOFT TISSUES: No obvious swelling or foreign body. OTHER: Chondrocalcinosis of the femoral tibial compartments. There is no suprapatellar joint effusio n. The quadriceps, patellar, and Achilles tendon silhouettes are intact. IMPRESSION: No acute osseous abnormality of the right tibia and fibula. TECHNICAL DOCUMENTATION: JOB ID: [id number] [employer]- All Rights Reserved Reading location - IP/workstation name: [email or web address]
[2019-09-11 14:44] VITALS: BP 156/60
--- NOTE | 2019-09-11 15:26 | XCELERA REPORT ---
[address] [address] Lower Extremity Venous Evaluation Procedure: Color flow and duplex imaging of the veins of the right lower extremity as well as the left Common Femoral vein. Right Sided Venous Evaluation Study challenging due to swelling. Normal vessel filling wall to wall, compression and augmentation as well as Colour flow down to the infrageniculate veins. Left Sided Venous Evaluation The left common femoral vein is fully compressible. Spontaneous and phasic flow is present in the left common femoral vein. Interpretation Summary No duplex evidence of DVT or obstruction in the right lower extremity nor in the left Common Femoral vein. Name: YORDAN PYLERuchi Wagner Age: 84 yrs Gender: Female : 1935 Patient Status: Emergency Patient Location: ER Study Date: 09/11/2019 10:17 AM Reason For Study: right leg pian and swelling Ordering Physician: MARVIN VASQUEZ Performed By: Alexandra Jha : MARVIN VASQUEZ > James Hannah
== END 2019-09-11 14:44 | disposition home or self-care (01) ==
LOC: ER 08:51
DX: M79.604 Pain in right leg (principal); M41.9 Scoliosis, unspecified; M79.89 Other specified soft tissue disorders; R31.29 Other microscopic hematuria; E78.00 Pure hypercholesterolemia, unspecified; I10 Essential (primary) hypertension; E03.9 Hypothyroidism, unspecified; Z88.6 Allergy status to analgesic agent; Z90.49 Acquired absence of other specified parts of digestive tract; Z90.710 Acquired absence of both cervix and uterus
CPT/HCPCS: 99284; 36415; 85025; 80053; 81001; 83880; 93971 ×2; 73590; A9270

== ENCOUNTER → 2019-09-26 | Outpatient (CLI) | payer MEDICARE ==
--- NOTE | 2019-09-26 14:06 | RADIOLOGY REPORT (SQ) ---
EXAM DESCRIPTION: KNEE RIGHT 4 VIEWS COMPLETED DATE/TIME: 09/26/2019 1:51 pm REASON FOR STUDY: M25.561 PAIN IN RIGHT KNEE M25.561 PAIN IN RIGHT KNEE COMPARISON: None. NUMBER OF VIEWS: Four views. TECHNIQUE: AP, lateral, and both oblique radiographic images acquired of the right knee. LIMITATIONS: None. FINDINGS: MINERALIZATION: Normal. BONES: No acute fracture or dislocation. No worrisome bone lesions. JOINT: Joint effusion. SOFT TISSUES: No soft tissue swelling. No radio-opaque foreign body. OTHER: No other significant finding. IMPRESSION: Joint effusion. TECHNICAL DOCUMENTATION: JOB ID: [id number] [employer]- All Rights Reserved Reading location - IP/workstation name: [email or web address]
== END ==
LOC: RAD 13:20
PROVIDERS: ATTEND Nurse Practitioner Family
DX: M25.461 Effusion, right knee (principal); M25.561 Pain in right knee

== ENCOUNTER → 2019-11-20 | Outpatient (CLI) | payer MEDICARE ==
[2019-11-20 14:24] LABS: ANION GAP 8 (5-19); BLOOD UREA NITROGEN 32 mg/dL (7-20); CARBON DIOXIDE 33 mmol/L (22-30); CHLORIDE 93 mmol/L (98-107); GLUCOSE 115 mg/dL (75-110); POTASSIUM 4.9 mmol/L (3.6-5.0)
== END ==
LOC: OD 12:33
PROVIDERS: ATTEND Family Medicine Geriatric Medicine
DX: E87.6 Hypokalemia (principal); D64.9 Anemia, unspecified; N39.0 Urinary tract infection, site not specified
CPT/HCPCS: 36415; 80048; 83735

== ENCOUNTER → 2020-01-29 | Outpatient (CLI) | payer MEDICARE ==
[2020-01-29 11:46] LABS: APPEARANCE,URINE CLEAR; BILIRUBIN,URINE NEGATIVE (NEGATIVE); COLOR,URINE YELLOW; GLUCOSE, URINE NEGATIVE (NEGATIVE); KETONES,URINE NEGATIVE (NEGATIVE); LEUKOCYTE ESTERASE,URINE NEGATIVE (NEGATIVE); NITRITE,URINE NEGATIVE (NEGATIVE); PROTEIN,URINE NEGATIVE (NEGATIVE); URINE SPECIFIC GRAVITY 1.015; UROBILINOGEN,URINE NEGATIVE mg/dL (<2.0)
[2020-01-29 12:03] LABS: ABSOLUTE EOSINOPHILS # (AUTO) 0.1 10^3/uL (0.0-0.6); ABSOLUTE LYMPHOCYTES (AUTO) 1.1 10^3/uL (0.5-4.7); ABSOLUTE MONOCYTES (AUTO) 0.6 10^3/uL (0.1-1.4); ABSOLUTE NEUT (AUTO) 3.5 10^3/uL (1.7-8.2); BASOPHILS % (AUTO) 0.5 % (0-2); EOSINOPHILS % (AUTO) 1.3 % (0-6); HEMATOCRIT 34.4 % (36.0-47.0); HEMOGLOBIN 11.8 g/dL (12.0-15.5); LYMPHOCYTES % (AUTO) 21.2 % (13-45); MEAN CORPUSCULAR HEMOGLOBIN 31.6 pg (27.0-33.4); MEAN CORPUSCULAR HGB CONC 34.4 g/dL (32.0-36.0); MEAN CORPUSCULAR VOLUME 92 fl (80-97); MONOCYTES % (AUTO) 11.9 % (3-13); PLATELET COUNT 196 10^3/uL (150-450); RED BLOOD COUNT 3.74 10^6/uL (3.72-5.28); SEGMENTED NEUTROPHILS % (AUTO) 65.1 % (42-78); TOTAL CELLS COUNTED % (AUTO) 100 %; WHITE BLOOD COUNT 5.4 10^3/uL (4.0-10.5)
[2020-01-29 12:08] LABS: ALBUMIN 4.4 g/dL (3.5-5.0); ALKALINE PHOSPHATASE 72 U/L (38-126); ANION GAP 7 (5-19); ASPARTATE AMINO TRANSFERASE 36 U/L (14-36); BILIRUBIN,TOTAL 1.2 mg/dL (0.2-1.3); BLOOD UREA NITROGEN 27 mg/dL (7-20); CALCIUM 9.9 mg/dL (8.4-10.2); CARBON DIOXIDE 34 mmol/L (22-30); CHLORIDE 94 mmol/L (98-107); CHOLESTEROL 130.34 mg/dL (0-200); GLUCOSE 92 mg/dL (75-110); POTASSIUM 4.4 mmol/L (3.6-5.0); TOTAL PROTEIN 7.2 g/dL (6.3-8.2); TRIGLYCERIDES 73 mg/dL (<150)
[2020-01-29 12:10] LABS: UR PRO/CREAT RATIO RESULT 0.1 mg/mg (0.0-0.2); URINE CREATININE 70.9 mg/dL (15-278); URINE PROTEIN 9.5 mg/dL (<12)
[2020-01-29 12:10] LABS: ABSOLUTE EOSINOPHILS # (AUTO) 0.1 10^3/uL (0.0-0.6); ABSOLUTE LYMPHOCYTES (AUTO) 1.1 10^3/uL (0.5-4.7); ABSOLUTE MONOCYTES (AUTO) 0.6 10^3/uL (0.1-1.4); ABSOLUTE NEUT (AUTO) 3.5 10^3/uL (1.7-8.2); BASOPHILS % (AUTO) 0.5 % (0-2); EOSINOPHILS % (AUTO) 1.3 % (0-6); HEMATOCRIT 34.4 % (36.0-47.0); HEMOGLOBIN 11.8 g/dL (12.0-15.5); LYMPHOCYTES % (AUTO) 21.2 % (13-45); MEAN CORPUSCULAR HEMOGLOBIN 31.6 pg (27.0-33.4); MEAN CORPUSCULAR HGB CONC 34.4 g/dL (32.0-36.0); MEAN CORPUSCULAR VOLUME 92 fl (80-97); MONOCYTES % (AUTO) 11.9 % (3-13); PLATELET COUNT 196 10^3/uL (150-450); RED BLOOD COUNT 3.74 10^6/uL (3.72-5.28); SEGMENTED NEUTROPHILS % (AUTO) 65.1 % (42-78); TOTAL CELLS COUNTED % (AUTO) 100 %; WHITE BLOOD COUNT 5.4 10^3/uL (4.0-10.5)
[2020-01-29 12:19] LABS: DIRECT LDL 49 mg/dL (<100)
[2020-01-29 12:28] LABS: ANION GAP 7 (5-19); BLOOD UREA NITROGEN 27 mg/dL (7-20); CALCIUM 9.9 mg/dL (8.4-10.2); CARBON DIOXIDE 34 mmol/L (22-30); CHLORIDE 94 mmol/L (98-107); GLUCOSE 92 mg/dL (75-110); POTASSIUM 4.4 mmol/L (3.6-5.0)
[2020-01-29 12:29] LABS: ALBUMIN 4.4 g/dL (3.5-5.0); PHOSPHORUS 3.5 mg/dL (2.5-4.5)
== END ==
LOC: OD 10:28
PROVIDERS: ATTEND Physician Assistant Medical
DX: E78.5 Hyperlipidemia, unspecified (principal); I13.0 Hypertensive heart and chronic kidney disease with heart failure and stage 1 through stage 4 chronic kidney disease, or unspecified chronic kidney disease; N18.4 Chronic kidney disease, stage 4 (severe); I50.9 Heart failure, unspecified; R10.9 Unspecified abdominal pain; E83.52 Hypercalcemia; R60.9 Edema, unspecified; D64.9 Anemia, unspecified; E03.9 Hypothyroidism, unspecified; Z79.899 Other long term (current) drug therapy
CPT/HCPCS: 36415; 80053; 80061; 80069; 81001; 82570; 83735; 84156; 84443; 85025

== ENCOUNTER 2020-04-13 15:06 | Emergency (ER) | payer MEDICARE ==
[2020-04-13 15:28] VITALS: BP 142/95
[2020-04-13] MEDS ORDERED: MORPHINE SULFATE SR 15 MG TABLET PO ONE (15:54)
--- NOTE | 2020-04-13 15:55 | ER Document Report ---
ED Medical Screen (RME) - General Chief Complaint: Medication Refill Stated Complaint: MED REFILL Time Seen by Provider: 04/13/20 15:36 Primary Care Provider: RENZO TENA MD [Primary Care Provider] - Follow up as needed Mode of Arrival: Wheelchair Information source: Patient, Relative Notes: HPI; 84-year-old female presents emergency room who presents to the emergency room stating that she has run out of her extended release morphine. Per the daughter there Jumped up on the counter and knocked over her pill dispenser states they were able to find all but 2 of her extended release morphine. States they contacted the [facility] who wrote her prescription but postdated it for April 24 which is when she is due for her next refill. Patient is here requesting a prescription for the extended release morphine to last her until April 24. Daughter also states that she was seen at an urgent care yesterday for UTI and would like to have blood work and a repeat urinalysis to make sure the patient is "not septic". There has been no fever. No shortness of breath, no difficulty breathing. Daughter is insistent on having blood work and urinalysis done. Patient has finally agreed to stay and have blood work and urinalysis done. PE: Alert and oriented x3. Lungs: Clear to auscultation without rales, rhonchi, wheezes. Heart: Regular rate and rhythm without murmurs, rubs, gallops. I have greeted and performed a rapid initial assessment of this patient. A comprehensive ED assessment and evaluation of the patient, analysis of test results and completion of the medical decision making process will be conducted by additional ED providers. I have specifically instructed the patient or family members with the patient to immediately return to any nursing staff should anything change in the patient's condition or with their chief complaint. TRAVEL OUTSIDE OF THE [place] IN LAST 30 DAYS: No - Related Data Allergies/Adverse Reactions: codeine [Codeine] Allergy (Severe, Verified 03/25/19 13:42) Depression sulfamethoxazole [From Bactrim] Allergy (Mild, Verified 04/13/20 15:35) Blisters trimethoprim [From Bactrim] Allergy (Mild, Verified 04/13/20 15:35) Blisters Past Medical History - Past Medical History Cardiac Medical History: Reports: Hx Hypercholesterolemia, Hx Hypertension Denies: Hx Congestive Heart Failure, Hx Coronary Artery Disease, Hx DVT, Hx Heart Attack, Hx Pulmonary Embolism Pulmonary Medical History: Denies: Hx Asthma, Hx Bronchitis - X 1 , Hx COPD, Hx Pneumonia Neurological Medical History: Denies: Hx Cerebrovascular Accident, Hx Seizures Endocrine Medical History: Reports: Hx Hypothyroidism. 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 Psychiatric Medical History: Denies: Hx Depression Past Surgical History: Reports: Hx Abdominal Surgery - tummy tuck, Hx Cholecystectomy, Hx Hysterectomy, Hx Tonsillectomy - Immunizations Hx Diphtheria, Pertussis, Tetanus Vaccination: No - UNSURE Physical Exam - Vital signs Vitals: Temp Pulse Resp BP Pulse Ox 98.8 F 78 20 142/95 H 96 04/13/20 15:23 04/13/20 15:23 04/13/20 15:23 04/13/20 15:23 04/13/20 15:23 Course - Vital Signs Vital signs: Temp Pulse Resp BP Pulse Ox 98.8 F 78 20 142/95 H 96 04/13/20 15:23 04/13/20 15:23 04/13/20 15:23 04/13/20 15:23 04/13/20 15:23 Doctor's Discharge - Discharge Referrals: RENZO TENA MD [Primary Care Provider] - Follow up as needed
[2020-04-13 16:30] LABS: ABSOLUTE EOSINOPHILS # (AUTO) 0.1 10^3/uL (0.0-0.6); ABSOLUTE LYMPHOCYTES (AUTO) 1.2 10^3/uL (0.5-4.7); ABSOLUTE MONOCYTES (AUTO) 0.8 10^3/uL (0.1-1.4); ABSOLUTE NEUT (AUTO) 3.8 10^3/uL (1.7-8.2); BASOPHILS % (AUTO) 0.5 % (0-2); EOSINOPHILS % (AUTO) 1.5 % (0-6); HEMATOCRIT 35.4 % (36.0-47.0); HEMOGLOBIN 11.9 g/dL (12.0-15.5); LYMPHOCYTES % (AUTO) 19.5 % (13-45); MEAN CORPUSCULAR HEMOGLOBIN 31.1 pg (27.0-33.4); MEAN CORPUSCULAR HGB CONC 33.7 g/dL (32.0-36.0); MEAN CORPUSCULAR VOLUME 92 fl (80-97); MONOCYTES % (AUTO) 13.7 % (3-13); PLATELET COUNT 206 10^3/uL (150-450); RED BLOOD COUNT 3.83 10^6/uL (3.72-5.28); RED CELL DISTRIBUTION WIDTH 13.7 % (11.5-14.0); SEGMENTED NEUTROPHILS % (AUTO) 64.8 % (42-78); TOTAL CELLS COUNTED % (AUTO) 100 %; WHITE BLOOD COUNT 5.9 10^3/uL (4.0-10.5)
[2020-04-13 16:34] LABS: APPEARANCE,URINE CLEAR; BILIRUBIN,URINE NEGATIVE (NEGATIVE); COLOR,URINE STRAW; GLUCOSE, URINE NEGATIVE (NEGATIVE); KETONES,URINE NEGATIVE (NEGATIVE); LEUKOCYTE ESTERASE,URINE SMALL (NEGATIVE); NITRITE,URINE NEGATIVE (NEGATIVE); PROTEIN,URINE NEGATIVE (NEGATIVE); URINE SPECIFIC GRAVITY 1.004; UROBILINOGEN,URINE NEGATIVE mg/dL (<2.0)
[2020-04-13 16:49] LABS: ALBUMIN 4.5 g/dL (3.5-5.0); ALKALINE PHOSPHATASE 72 U/L (38-126); ANION GAP 7 (5-19); ASPARTATE AMINO TRANSFERASE 37 U/L (14-36); BILIRUBIN,DIRECT 0.3 mg/dL (0.0-0.4); BILIRUBIN,TOTAL 1.1 mg/dL (0.2-1.3); BLOOD UREA NITROGEN 26 mg/dL (7-20); CALCIUM 9.9 mg/dL (8.4-10.2); CARBON DIOXIDE 33 mmol/L (22-30); CHLORIDE 96 mmol/L (98-107); GLUCOSE 107 mg/dL (75-110); POTASSIUM 4.8 mmol/L (3.6-5.0); TOTAL PROTEIN 7.4 g/dL (6.3-8.2)
--- NOTE | 2020-04-13 17:05 | ER Document Report ---
HPI - HPI Patient complains to provider of: Medication refill Time Seen by Provider: 04/13/20 15:36 Pain Level: 3 Context: See my RME note. Associated Symptoms: None Exacerbated by: Denies Relieved by: Denies Similar symptoms previously: Yes - Chronic pain, chronic UTIs Recently seen / treated by doctor: No - ROS Systems Reviewed and Negative: Yes All other systems reviewed and negative - CONSTITUTIONAL Constitutional: DENIES: Fever, Chills - EENT EENT: DENIES: Sore Throat - NEURO Neurology: DENIES: Weakness - RESPIRATORY Respiratory: DENIES: Trouble Breathing, Coughing - GASTROINTESTINAL Gastrointestinal: DENIES: Abdominal Pain, Nausea, Patient vomiting - URINARY Urinary: REPORTS: Dysuria, Frequency - REPRODUCTIVE Reproductive: DENIES: : - MUSCULOSKELETAL Musculoskeletal: REPORTS: Back Pain - DERM Skin Color: Normal Skin Problems: None Past Medical History - General Information source: Patient, Relative - Social History Smoking Status: Never Smoker Chew tobacco use (# tins/day): No Frequency of alcohol use: None Drug Abuse: None Family History: Reviewed & Not Pertinent, Hypertension Patient has homicidal ideation: No - Past Medical History Cardiac Medical History: Reports: Hx Hypercholesterolemia, Hx Hypertension Denies: Hx Congestive Heart Failure, Hx Coronary Artery Disease, Hx DVT, Hx Heart Attack, Hx Pulmonary Embolism Pulmonary Medical History: Denies: Hx Asthma, Hx Bronchitis - X 1 , Hx COPD, Hx Pneumonia Neurological Medical History: Denies: Hx Cerebrovascular Accident, Hx Seizures Endocrine Medical History: Reports: Hx Hypothyroidism. Denies: Hx Diabetes Mellitus Type 1, Hx Diabetes Mellitus Type 2 Renal/ Medical History: Denies: Hx Peritoneal Dialysis GI Medical History: Reports: Hx Gastroesophageal Reflux Disease Musculoskeletal Medical History: Reports Hx Arthritis - GENERALIZED Psychiatric Medical History: Denies: Hx Depression Past Surgical History: Reports: Hx Abdominal Surgery - tummy tuck, Hx Cholecystectomy, Hx Hysterectomy, Hx Tonsillectomy - Immunizations Hx Diphtheria, Pertussis, Tetanus Vaccination: No - UNSURE Hx Pneumococcal Vaccination: 08/23/11 Vertical Provider Document - CONSTITUTIONAL Agree With Documented VS: Yes Exam Limitations: No Limitations General Appearance: No Apparent Distress - INFECTION CONTROL TRAVEL OUTSIDE OF THE [place] IN LAST 30 DAYS: No - HEENT HEENT: Atraumatic, Normocephalic - NECK Neck: Normal Inspection, Supple, Thyroid Normal - RESPIRATORY Respiratory: Breath Sounds Normal, No Respiratory Distress, Chest Non-Tender - CARDIOVASCULAR Cardiovascular: Regular Rate, Regular Rhythm, No Murmur - GI/ABDOMEN Gastrointestinal: Abdomen Soft, Abdomen Non-Tender. negative: Abdomen Tender, Abdominal Guarding, Abdominal Rebound - BACK Back: Normal Inspection. negative: CVA Tenderness-Right, CVA Tenderness-Left - MUSCULOSKELETAL/EXTREMETIES Musculoskeletal/Extremeties: FROM - NEURO Level of Consciousness: Awake, Alert, Appropriate Motor/Sensory: No Motor Deficit, No Sensory Deficit - DERM Integumentary: Warm, Dry, No Rash Course - Re-evaluation Re-evalutation: 04/13/20 17:20 Reviewed all lab and urine results with the patient and family. There is no signs of sepsis. Counseled on the need to follow-up outpatient with her primary care physician as well as her pain management physician for her ongoing pain medications. Patient was given 1 dose of her morphine in the emergency room will be discharged home. Patient was given strict return to the emergency room guidelines. Return for any new or worsening symptoms. All questions were answered. Patient verbalized understanding and agrees with plan of care. - Vital Signs Vital signs: Temp Pulse Resp BP Pulse Ox 98.8 F 78 20 142/95 H 96 04/13/20 15:23 04/13/20 15:23 04/13/20 15:23 04/13/20 15:23 04/13/20 15:23 - Laboratory Result Diagrams: 04/13/20 16:00 04/13/20 16:00 Laboratory results interpreted by me: 04/13/20 04/13/20 04/13/20 16:00 16:00 16:00 Hgb 11.9 L Hct 35.4 L [place] % (Auto) 13.7 H Sodium 136.4 L Chloride 96 L Carbon Dioxide 33 H BUN 26 H AST 37 H Ur Leukocyte Esterase SMALL H Discharge - Discharge Clinical Impression: Chronic pain Qualifiers: Chronic pain type: other chronic pain Qualified Code(s): G89.29 - Other chronic pain Condition: Stable Disposition: HOME, SELF-CARE Instructions: Chronic Pain Control ([facility]) Additional Instructions: Continue with your current home medications. Outpatient follow-up with your primary care physician and/or your pain management doctor as discussed. Return to the emergency room for any new or worsening symptoms. Referrals: RENZO TENA MD [Primary Care Provider] - Follow up as needed [facility] [Provider Group] - Follow up as needed
== END 2020-04-13 17:25 | disposition home or self-care (01) ==
LOC: ER 15:06
DX: G89.29 Other chronic pain (principal); R30.0 Dysuria; R35.0 Frequency of micturition; I10 Essential (primary) hypertension; Z87.440 Personal history of urinary (tract) infections; Z79.899 Other long term (current) drug therapy
CPT/HCPCS: 99283; 36415; 85025; 80053; 81001; A9270; J3490

== ENCOUNTER → 2020-07-08 | Outpatient (CLI) | payer MEDICARE ==
[2020-07-08 13:03] LABS: APPEARANCE,URINE SLIGHTLY-CLOUDY; BILIRUBIN,URINE NEGATIVE (NEGATIVE); COLOR,URINE YELLOW; GLUCOSE, URINE NEGATIVE (NEGATIVE); KETONES,URINE NEGATIVE (NEGATIVE); LEUKOCYTE ESTERASE,URINE MODERATE (NEGATIVE); NITRITE,URINE POSITIVE (NEGATIVE); PROTEIN,URINE NEGATIVE (NEGATIVE); URINE SPECIFIC GRAVITY 1.013
[2020-07-08 13:17] LABS: ABSOLUTE EOSINOPHILS # (AUTO) 0.1 10^3/uL (0.0-0.6); ABSOLUTE LYMPHOCYTES (AUTO) 1.1 10^3/uL (0.5-4.7); ABSOLUTE MONOCYTES (AUTO) 0.5 10^3/uL (0.1-1.4); ABSOLUTE NEUT (AUTO) 3.8 10^3/uL (1.7-8.2); BASOPHILS % (AUTO) 0.5 % (0-2); EOSINOPHILS % (AUTO) 1.3 % (0-6); HEMOGLOBIN 11.6 g/dL (12.0-15.5); LYMPHOCYTES % (AUTO) 19.3 % (13-45); MEAN CORPUSCULAR HEMOGLOBIN 31.1 pg (27.0-33.4); MEAN CORPUSCULAR HGB CONC 34.1 g/dL (32.0-36.0); MEAN CORPUSCULAR VOLUME 91 fl (80-97); MONOCYTES % (AUTO) 9.2 % (3-13); PLATELET COUNT 195 10^3/uL (150-450); RED BLOOD COUNT 3.72 10^6/uL (3.72-5.28); RED CELL DISTRIBUTION WIDTH 14.3 % (11.5-14.0); SEGMENTED NEUTROPHILS % (AUTO) 69.7 % (42-78); TOTAL CELLS COUNTED % (AUTO) 100 %; WHITE BLOOD COUNT 5.5 10^3/uL (4.0-10.5)
[2020-07-08 13:29] LABS: ABSOLUTE EOSINOPHILS # (AUTO) 0.1 10^3/uL (0.0-0.6); ABSOLUTE LYMPHOCYTES (AUTO) 1.1 10^3/uL (0.5-4.7); ABSOLUTE MONOCYTES (AUTO) 0.5 10^3/uL (0.1-1.4); ABSOLUTE NEUT (AUTO) 3.8 10^3/uL (1.7-8.2); BASOPHILS % (AUTO) 0.5 % (0-2); EOSINOPHILS % (AUTO) 1.3 % (0-6); HEMOGLOBIN 11.6 g/dL (12.0-15.5); LYMPHOCYTES % (AUTO) 19.3 % (13-45); MEAN CORPUSCULAR HEMOGLOBIN 31.1 pg (27.0-33.4); MEAN CORPUSCULAR HGB CONC 34.1 g/dL (32.0-36.0); MEAN CORPUSCULAR VOLUME 91 fl (80-97); MONOCYTES % (AUTO) 9.2 % (3-13); PLATELET COUNT 195 10^3/uL (150-450); RED BLOOD COUNT 3.72 10^6/uL (3.72-5.28); RED CELL DISTRIBUTION WIDTH 14.3 % (11.5-14.0); SEGMENTED NEUTROPHILS % (AUTO) 69.7 % (42-78); TOTAL CELLS COUNTED % (AUTO) 100 %; WHITE BLOOD COUNT 5.5 10^3/uL (4.0-10.5)
[2020-07-08 13:43] LABS: ALBUMIN 4.2 g/dL (3.5-5.0); ALKALINE PHOSPHATASE 76 U/L (38-126); ANION GAP 8 (5-19); ASPARTATE AMINO TRANSFERASE 33 U/L (14-36); BILIRUBIN,DIRECT 0.4 mg/dL (0.0-0.4); BILIRUBIN,TOTAL 1.4 mg/dL (0.2-1.3); BLOOD UREA NITROGEN 38 mg/dL (7-20); CALCIUM 9.7 mg/dL (8.4-10.2); CARBON DIOXIDE 34 mmol/L (22-30); CHLORIDE 95 mmol/L (98-107); CHOLESTEROL 119.14 mg/dL (0-200); GLUCOSE 95 mg/dL (75-110); POTASSIUM 4.7 mmol/L (3.6-5.0); TRIGLYCERIDES 87 mg/dL (<150)
[2020-07-08 13:54] LABS: DIRECT LDL 38 mg/dL (<100)
[2020-07-08 14:04] LABS: BLOOD UREA NITROGEN 38 mg/dL (7-20); CALCIUM 9.7 mg/dL (8.4-10.2); CHLORIDE 95 mmol/L (98-107); GLUCOSE 95 mg/dL (75-110); POTASSIUM 4.7 mmol/L (3.6-5.0)
[2020-07-08 14:05] LABS: ALBUMIN 4.2 g/dL (3.5-5.0); ANION GAP 8 (5-19); CARBON DIOXIDE 34 mmol/L (22-30); PHOSPHORUS 4.1 mg/dL (2.5-4.5)
== END ==
LOC: OD 11:07
PROVIDERS: ATTEND Internal Medicine Nephrology
DX: I12.9 Hypertensive chronic kidney disease with stage 1 through stage 4 chronic kidney disease, or unspecified chronic kidney disease (principal); N18.30 Chronic kidney disease, stage 3 unspecified; E03.9 Hypothyroidism, unspecified; E87.6 Hypokalemia; N95.2 Postmenopausal atrophic vaginitis; Z79.899 Other long term (current) drug therapy
CPT/HCPCS: 36415; 80053; 80061; 80069; 81001; 83735; 84443; 85025